=== PATIENT | female | born 1985 | race Caucasian/White ===

== ENCOUNTER 2023-04-17 20:08 | Outpatient (REF) | payer OTHER, SELFPAY ==
[2023-04-22 08:11] LABS: Age Gdln ACOG Testing Note (.); HPV Aptima Negative (Negative); IGP, Aptima HPV, rfx 16/18,45 Note (.)
== END 2023-04-17 20:09 | disposition home or self-care (01) ==
LOC: LAB 20:08
PROVIDERS: Visit Provider Physician Assistant
DX: Z01.419 Encounter for gynecological examination (general) (routine) without abnormal findings (principal)
CPT/HCPCS: 87624; G0145

== ENCOUNTER 2024-11-11 13:55 | Outpatient (REF) | payer OTHER, SELFPAY ==
--- OUTSIDE RECORDS SUMMARY | 2024-11-11 10:30 | XMS_ITS | Encounter Summary ---
Author Organization [facility] Address [address] [place] [address] Care Team Providers Care Gis Analyst Name Role Phone Uri Reyes MD Primary Care Provider [phone] Reason for Visit * Reason Comments Pre-op Visit EMBX Encounter Details Date Type Department Care Team (Late st Contact Info) Description 11/11/2024 10:30 AM EDT Procedure Visit [facility] [address] [place] [id number] Kobi Jolly DO [address] [place] [address] Pre-op examination; Menorrhagia with regular cycle; Abnormal uterine bleeding (AUB); Pelvic pain Social History Tobacco Use Types Packs/Day Years Used Date Smoking Tobacco: Never Smokeless Tobacco: Never Alcohol Use Standard Drinks/Week Comments Yes 1 (1 standard drink = 0.6 oz pure alcohol) Caffeine intake: 1-2 cups per day AUDIT-C Answer Date Recorded Q1: How often do you have a drink containing alc ohol? Monthly or less 04/15/2023 Q2: How many drinks containi ng alcohol do you have on a typical day when you are drinking? 1 or 2 04/15/2023 Q3: How often do you have si x or more drinks on one occasion? Never 04/15/2023 Comments No Sex and Gender Information Value Date Recorded Sex Assigned at Not on file Legal Sex Female 6:35 PM EDT Gender Identity Not on file Sexual Orientation Not on file documented as of this encounter Last Filed Vital Signs Vital Sign Reading Time Taken Comments Blood Pressure 100/68 11/11/2024 10:47 AM EDT Pulse - - Temperature - - Respiratory Rate - - Oxygen Saturation - - Inhaled Oxygen Concentration - - Weight 53.9 kg (118 lb 12.8 oz) 025 10:47 AM EDT Height - - Body Mass Index 21.73 08/04/2024 4:15 PM EDT documented in this encounter Progress Notes * Taylor Chaney - 11/11/2024 10:30 AM EDTAssociated Order(s): Endometrial biopsy Post-Procedure Diagnose(s): Pre-op examination; Menorrhagia with regular cycle; Pelvic pain; Abnormal uterine bleeding (AUB) Reason for Appointment: Patient ID: Jyoti Archuleta is a 39 y.o. female who presents for Pre-op Visit and EMBX Patient presents today for a Pre Op/Endometrial Biopsy appointment. Patient is scheduled to undergoEndometrial Ablation with Sosa on 12-10-[address] Jolly at [facility]. appointment. MEDICATIONS Current Outpatient Medications Medication Instructions levothyroxine (SYNTHROID, LEVOXYL) 50 mcg, Oral, Daily before breakfast Rimegepant Sulfate (Nurtec) 75 MG tablet dispersible 1 po daily prn migraine max 2 days per week ALLERGIES Allergies Allergen Reactions Atogepant Swelling Amoxicillin Nausea Only Amoxicillin-Pot Clavulanate Dizziness nausea Cyclosporine Hives Other Reaction(s): Blurred Vision, Vision disorder Blurred vision Other Reaction(s): Vision disorder Egg-Derived Products Other Reaction(s): Unknown Fexofenadine Hives Other Reaction(s): Menorrhagia CONTINIOUS PERIODS continous periods Fexofenadine Hcl Other Reaction(s): Other: See Comments Continuous periods Hydrocodone-Acetaminophen Other Reaction(s): Other: See Comments, Vomiting Nausea, Dizziness Wound Dressing Adhesive Unknown Azithromycin Rash Other Reaction(s): Vomiting, Vomiting Clarithromycin Dizziness, Nausea Only and Rash Other Reaction(s): Unknown Sulfa Antibiotics Nausea Only and Rash Other Reaction(s): Vomiting PROBLEMS Active Ambulatory Problems Diagnosis Date Noted BMI 21.0-21.9, adult 08/04/2023 Headache 08/04/2023 Hypothyroidism 08/04/2023 Migraines 08/04/2023 Sinusitis 08/04/2023 Resolved Ambulatory Problems Diagnosis Date Noted No Resolved Ambulatory Problems Past Medical History: Diagnosis Date Autoimmune thyroiditis Nontoxic goiter Vitamin D deficiency HISTORY PAST MEDICAL HISTORY SOCIAL HISTORY Past Medical History: Diagnosis Date Autoimmune thyroiditis BMI 21.0-21.9, adult Headache Hypothyroidism Migraines Nontoxic goiter Sinusitis Vitamin D deficiency Social History Tobacco Use Smoking status: Never Smokeless tobacco: Never Substance Use Topics Alcohol use: Yes Alcohol/week: 1.0 standard drink of alcohol Types: 1 Standard drinks or equivalent per week Comment: Caffeine intake: 1-2 cups per day Drug use: Never FAMILY HISTORY Family History Problem Relation Name Age of Onset Heart disease Mother Hypertension Father Hyperlipidemia Father Diabetes Sister Hypertension Sister Hyperlipidemia Sister Autoimmune disease Daughter Other (Blood disease) Daughter SURGICAL HISTORY Past Surgical History: Procedure Laterality Date OOPHORECTOMY Right OTHER SURGICAL HISTORY r/o RT fallopian tube due to ectopic TONSILLECTOMY age 25 REVIEW OF SYSTEMS Review of Systems: Review of Systems Genitourinary: Positive for menstrual problem, pelvic pain and vaginal bleeding. All other systems reviewed and are negative. OBJECTIVE Objective: Physical Exam Constitutional: Appearance: Normal appearance. She is well-developed. Genitourinary: Vulva normal. Cardiovascular: Rate and Rhythm: Normal rate and regular rhythm. Pulmonary: Effort: Pulmonary effort is normal. Breath sounds: Normal breath sounds. Abdominal: General: Bowel sounds are normal. There is no distension. Palpations: Abdomen is soft. Tenderness: There is no abdominal tenderness. There is no guarding or rebound. Musculoskeletal: General: No swelling. Normal range of motion. Right lower leg: No edema. Left lower leg: No edema. Neurological: Mental Status: She is alert and oriented to person, place, and time. Skin: General: Skin is warm and dry. Psychiatric: Mood and Affect: Mood normal. Behavior: Behavior normal. Vitals and nursing note reviewed. Exam conducted with a microfiche camera operator present. Vitals: Estimated body mass index is 21.77 kg/m?? as calculated from the following: Height as of 08/04/24: 5' 2 . Weight as of 10/14/24: 119 lb. BP: Patient's last menstrual period was 09/23/2024 (approximate). ASSESSMENT & PLAN Assessment/Plan Encounter Diagnosis: ICD-10-CM 1. Pre-op examination Z01.818 2. Menorrhagia with regular cycle N92.0 3. Abnormal uterine bleeding (AUB) N93.9 4. Pelvic pain R10.2 Endometrial biopsy Date/Time: 11/11/2024 11:13 AM Performed by: Kobi Jolly DO Authorized by: Kobi Jolly DO Consent: Consent obtained: written Consent given by: patient Pre-procedure: Urine test: negative Procedure: A bimanual exam was performed: no Tenaculum used: yes A local block was performed: no Cervix dilated: no Number of passes: 1 Findings: Cervix: normal Specimen collected: specimen collected and sent to pathology EMBX: Patient was placed in dorsal lithotomy position with feet in stirrups. A sterile speculum was placed into the vagina and the cervix was visualized. The cervix was grasped with a single tooth tenaculum. The endometrial pipette was placed through the cervix into the uterus, endometrial curettage was performed and sampling was obtained, endometrial curettings were placed in formalin, and single tooth tenaculum was removed. Excellent hemostasis was assured. All instruments were removed from vagina. Pre Op: Patient is doing well but has complaints of abnormal uterine bleeding, menorrhagia and pelvic pain.I have discussed conservative management vs. surgical management with the patient in detail and patient desires surgical management at this time. Patient will undergo Endometrial Ablation with Sosa on . Surgical consents were signed, mmc was reviewed, and patient is to proceed to [facility] OR. Follow Up: Patient is to follow up between 1-2 weeks post operative to assess proper healing and recovery fromprocedure. Documented by Sweta Granados LPN on behalf of: Kobi Jolly DO documented in this encounter Plan of Treatment Upcoming Encounters Date Type Department Care Team (Late st Contact Info) Description 09/08/2025 11:20 AM EDT Telemedicine [facility] [place] [facility] [address] [place] [address] Leonel Santiago MD [address] [place] [address] Scheduled Orders Name Type Priority Associated Diagnoses Orde r Schedule Tissue exam Pathology and Cytology Routine Pre-op examination Menorrhagia with regular cycle Abnormal uterine bleeding (AUB) Pelvic pain Ordered: 11/11/2024 documented as of this encounter Procedures Procedure Name Priority Date/Time Associated Diagnosis Comments ENDOMETRIAL BIOPSY Routine 11/11/2024 11 :13 AM EDT Pre-op examination Menorrhagia with regular cycle Abnormal uterine bleeding (AUB) Pelvic pain POCT , URINE Routine 11/11/2024 10:54 AM EDT Pre-op examination Menorrhagia with regular cycle Abnormal uterine bleeding (AUB) Pelvic pain documented in this encounter Results * Endometrial biopsy (11/11/2024 11:13 AM EDT) Narrative Sweta Granados LPN - 11/11/2024 11:13 AM EDT Sweta Granados LPN 11/11/2024 11:15 AM Endometrial biopsy Date/Time: 11/11/2024 11:13 AM Performed by: Kobi Jolly DO Authorized by: Kobi Jolly DO Consent: Consent obtained: written Consent given by: patient Pre-procedure: Urine test: negative Procedure: A bimanual exam was performed: no Tenaculum used: yes A local block was performed: no Cervix dilated: no Number of passes: 1 Findings: Cervix: normal Specimen collected: specimen collected and sent to pathology Kobi Jolly DO IN CLINIC/BEDSIDE ORDERABLES Fin al Result * POCT , urine manually resulted (11/11/2024 10:54 AM EDT) Preg Test, Ur Negative Negative Urine 11/11/2024 10:5 4 AM EDT Kobi Jolly DO POINT OF CARE TEST ENTER/EDIT OR DERABLES Final Result documented in this encounter Visit Diagnoses Diagnosis Pre-op examination Menorrhagia with regular cycle Abnormal uterine bleeding (AUB) Pelvic pain documented in this encounter Care Teams Gis Analyst Relationship Specialty Start Date End Date Uri Reyes MD [address] [place] [address] PCP - General Family Medicine 04/17/23 documented as of this encounter
--- OUTSIDE RECORDS SUMMARY | 2024-11-17 14:00 | XMS_ITS | Encounter Summary ---
Author Organization [facility] Address [address] [place] [address] Care Team Providers Care Manager Labor Relations Name Role Phone Uri Reyes MD Primary Care Provider [phone] Encounter Details Date Type Department Care Team (Late Contact Info) Description 10/05/2024 Orders Only [facility] [address] [place] [phone] Paradise Wen LPN [address] [place] [address] Social History Tobacco Use Types Packs/Day Years [...] drinks on one occasion? Never 04/15/2023 Comments Unknown Sex and Gender Information Value Date Recorded Sex Assigned at Not on file Legal Sex Female 6:35 PM EDT Gender Identity Not on file Sexual Orientation Not on file documented as of this encounter Plan of Treatment Upcoming Encounters Date Type Department Care Team (Late st Contact Info) Description 09/08/2025 11:20 AM EDT Telemedicine [facility] [address] [place] [address] Leonel Santiago MD [address] [place] [address] documented as of this encounter Procedures Procedure Name Priority Date/Time Associated Diagnosis Comments PAP SMEAR Routine 04/17/2023 12:00 AM EST documented in this encounter Results * Pap Smear (04/17/2023 12:00 AM EST) Swab Cervical swab / Unknown us Rik [facility] CYTOLOGY ORDERABLES Final Result EXTERNAL LAB documented in this encounter Visit Diagnoses Not on filedocumented in this encounter Care Teams Manager Labor Relations Relationship Specialty Start Date End Date Uri Reyes MD [address] [place] [address] PCP - General Family Medicine 04/17/23 documented as of this encounter
--- OUTSIDE RECORDS SUMMARY | 2024-11-17 14:00 | XMS_ITS | Clinical Summary ---
Author Organization [facility] Address [address], [address] [place] [address] Care Team Providers Care Ground Wood Supervisor Name Role Phone Unavailable Primary Care Provider Unavailabl e Social History Tobacco Use Types Packs/Day Years Used Date Smoking Tobacco: Never Assessed Comments Unknown Sex and Gender Information Value Date Recorded Sex Assigned at Not on file Legal Sex Female 2:33 PM EDT Gender Identity Not on file Sexual Orientation Not on file Plan of Treatment Not on file Insurance [address] [address]
--- OUTSIDE RECORDS SUMMARY | 2024-11-17 14:00 | XMS_ITS | Encounter Summary ---
Author Organization [facility] Address [address] [place] [address] Care Team Providers Care Writer Editor Name Role Phone Uri Reyes MD Primary Care Provider [phone] Encounter Details Date Type Department Care Team (Late Contact Info) Description 11/17/2024 Orders Only [facility] [address] [place] [phone] Angie Blevins MA [address] [place] [address] Social History Tobacco Use Types Packs/Day Years [...] 11:20 AM EDT Telemedicine [facility] [place] [facility] [address] [place] [address] Leonel Santiago MD [address] [place] [address] documented as of this encounter Procedures Procedure Name Priority Date/Time Associated Diagnosis Comments ENDOMETRIAL BIOPSY Routine 11/11/2024 12:00 AM EDT documented in this encounter Results * Endometrial biopsy (11/11/2024 12:00 AM EDT) us Kobi Rik DO SURGICAL HISTORY PROCEDURES [place] l Result EXTERNAL LAB documented in this encounter Visit Diagnoses Not on filedocumented in this encounter Care Teams Writer Editor Relationship Specialty Start Date End Date Uri Reyes MD [address] [place] [address] PCP - General Family Medicine 04/17/23 documented as of this encounter
--- OUTSIDE RECORDS SUMMARY | 2024-11-17 14:00 | XMS_ITS | Clinical Summary ---
Author Organization [employer] [facility] Address [id number] [place] [address] Care Team Providers Care Sports Physiologist Name Role Phone Unavailable Primary Care Provider Unavailabl e Allergies Active Allergy Reactions Criticality Noted Date Comments Fexofenadine Other (See Comments) 04/03/2017 CONTINIOUS PERIODS Amoxicillin Nausea 04/01/2017 Azithromycin Rash,Vomiting Low 04/01/2017 Clarithromycin Rash,Nausea Low 04/03/2017 Cyclosporine Blurred Vision 04/03/2017 Sulfa (Sulfonamide Antibiotics) Rash,Nausea,Vomitin g Low 04/01/2017 Hydrocodone-Acetaminophen Vomiting 04/01/2017 Medications NO115/IRON/FOLIC ACID ( 19 ORAL) Take 1 tablet by mouth. Active levothyroxine (SYNTHROID, LEVOTHROID) 75 MCG tablet Take 75 mcg by mouth daily. Active Active Problems Problem Noted Date Diagnosed Date Placenta previa in third trimester 08/15/2017 Hypothyroidism complicating , first tri mester 04/03/2017 Genetic carrier status 04/03/2017 Overview (04/03/2017): Cystic fibrosis carrier- her is carrier screen negative by report Resolved Problems Problem Noted Date Diagnosed Date Resolved Date Obesity complicating pregnan cy, first trimester 04/03/2017 04/03/2017 Family History Medical History Relation Name Comments Hyperlipidemia Father Diabetes Maternal Grandfather Diabetes Maternal Grandmother Heart disease Maternal Grandmother Arthritis Mother Heart disease Mother Hyperlipidemia Mother Hypertension Mother Hyperlipidemia Sister Relation Name Status Comments Father Maternal Grandfather Maternal Grandmother Alive Mother Paternal Grandfather Paternal Grandmother Sister Alive Social History Tobacco Use Types Packs/Day Years Used Date Smoking Tobacco: Never Smokeless Tobacco: Never Alcohol Use Standard Drinks/Week Comments No 0 (1 standard drink = 0.6 oz pur e alcohol) Childcare Answer Date Recorded Childcare Unknown 09/10/2018 Employment Answer Date Recorded Employment Unknown 09/10/2018 Purpose - Life Answer Date Recorded Purpose and direction in life Unknown Comments No Sex and Gender Information Value Date Recorded Sex Assigned at Not on file Legal Sex Female 9:48 AM EST Gender Identity Not on file Sexual Orientation Not on file Last Filed Vital Signs Vital Sign Reading Time Taken Comments Blood Pressure 107/65 08/15/2017 10:37 AM EDT Pulse 78 08/15/2017 10:37 AM EDT Temperature - - Respiratory Rate - - Oxygen Saturation - - Inhaled Oxygen Concentration - - Weight 59.9 kg (132 lb 0.9 oz) 08/15/2017 10:37 AM EDT Height 157.5 cm (5' 2 ) 08/15/2017 10:37 AM EDT Body Mass Index 24.15 08/15/2017 10:37 AM EDT Plan of Treatment Health Maintenance Due Date Last Done Comments Depression Screening 1996 Tobacco Screening 1996 Adult BMI Screening 2002 DTaP,Tdap and Td Vaccines (1 - Tdap) 09/30/2003 Pap Smear 2005 Influenza Vaccine 11/29/2024 Medical Devices Not on file Insurance [employer]
--- OUTSIDE RECORDS SUMMARY | 2024-11-17 14:00 | XMS_ITS | Clinical Summary ---
Author Organization [facility] Address [address] [place] [address] Phone Care Team Providers Care Wrapper Stitcher Name Role Phone Unavailable Primary Care Provider Unavailabl e Encounters Date Type Department Care Team Description 08/31/2024 Orders Only [facility] [address] [place] [address] Mj Shell DO from Last 3 Months Social History Tobacco Use Types Packs/Day Years Used Date Smoking Tobacco: Never Assessed Comments Unknown Sex and Gender Information Value Date Recorded Sex Assigned at Not on file Legal Sex Female 10:48 AM EDT Gender Identity Not on file Sexual Orientation Not on file Plan of Treatment Not on file Procedures Procedure Name Priority Date/Time Associated Diagnosis Comments CT ABDOMEN PELVIS WO IV CONTRAST 08/31/2024 10:46 AM EDT [facility] EGFR Routine 08/31/2024 10:39 AM EDT [facility] BMP Routine 08/31/2024 10:39 AM EDT [facility] EXTRA BLUE Routine 08/31/2024 10:39 AM EDT [facility] CBC W/ AUTO DIFF Routine 08/31/2024 10:39 AM EDT [facility] C URINE Routine 08/31/2024 10 :19 AM EDT [facility] UA WITH CULT RFLX Routine 08/31/2024 10:19 AM EDT from Last 3 Months Results * CT abdomen pelvis wo IV contrast (08/31/2024 10:46 AM EDT) Anatomical Region Laterality Modality Abdominal, Body Computed Tomogra phy 08/31/2024 10:4 6 AM EDT Narrative 08/31/2024 11:11 AM EDT Exam Date/Time: 08/31/2024 10:56 EDT Reason for Exam: Hematuria Report IMPRESSION: NO ACUTE OR SIGNIFICANT INTRA-ABDOMINAL PROCESS IDENTIFIED. EXAM: CT Abdomen/Pelvis w/o Contrast DATE: 08/31/2024 10:46 AM CLINICAL HISTORY: Hematuria. COMPARISON: None available. TECHNIQUE: Spiral unenhanced images were obtained from above the kidneys through the urinary bladder without contrast. All CT scans at this facility use dose modulation, iterative reconstruction, and/or weight based dosing when appropriate to reduce radiation dose to as low as reasonably achievable. Unless otherwise stated, incidental findings identified in this report do not require routine follow-up imaging. FINDINGS: Liver: No enlargement, significant fatty infiltration, suspicious mass lesion of the visualized segments. Approximately 2.2 cm fluid density cyst incidentally noted. Biliary: The gallbladder is unremarkable. No abnormal biliary ductal dilatation. Pancreas: No mass, organized fluid collection, or abnormal pancreatic ductal dilatation. Spleen: Unremarkable. Adrenals: Unremarkable. Kidneys: No hydronephrosis, significant urinary tract calculi, surrounding inflammatory changes, parenchymal atrophy, scarring, or suspicious mass. GI tract: No abnormal dilation, wall thickening, or suspicious mass. Normal appendix. Lymph nodes: No pathologically enlarged lymph nodes. Vasculature: No aneurysm. Mesentery/peritoneum/retroperitoneum: No ascites, organized fluid collection, inflammatory changes, or suspicious mass. Pelvis: The urinary bladder, uterus, and adnexa appear within normal limits. Musculoskeletal: No acute osseous findings identified. Mild rotary levoscoliosis of the thoracolumbar spine. Lower thorax: Noncontributory. Technical Comments: Rectal Contrast Given? No Report Ordering Provider: Mj Shell FINAL REPORT Dictated: 08/31/2024 11:08 am Henry Duarte MD Signed (Electronic Signature): 08/31/2024 11:08 am Signed by: Henry Duarte MD Transcribed by: TRAY Technologist: SB Mj Shell DO IMG CT PROCEDURES Final Result * [facility] EXTRA BLUE (08/31/2024 10:39 AM EDT) [facility] TUBE COLLECTED PLASMA Yes [facility] Blood 08/31/2024 1 0:39 AM EDT us Mj Shell DO LAB BLOOD ORDERABLES Final Resu lt [facility] [address] [place] [address], [place] * (ABNORMAL) [facility] CBC w/ Auto Diff (08/31/2024 10:39 AM EDT) [facility] WBC 9.2 4.0 - 11.0 E9/L [facility] RBC 4.9 4.3 - 5.9 E12/L [facility] HGB 14.4 12.0 - 16.0 gm/dL [facility] HCT 42.2 34.0 - 46.0 % [facility] RDW 12.8 10.9 - 14.2 % [facility] MCH 29.6 27.0 - 34.0 pg [facility] MCHC 34.2 31.4 - 36.0 gm/dL [facility] MCV 86.4 80.0 - 100.0 fL [facility] MPV 7.7 6.4 - 10.8 fL [facility] PLATELET 251.0 150.0 - 500.0 E9/L [facility] NEUTRO AUTO 84.5(H) 36.0 - 75.0 % [facility] LYMPH AUTO 10.0(L) 14.0 - 50.0 % [facility] MONO AUTO 4.7 4.0 - 14.0 % [facility] EOS AUTO 0.6 0.0 - 8.0 % [facility] BASOPHIL AUTO 0.2 0.0 - 2.0 % [facility] NEUTRO ABSOLUTE 7.7(H) 2.0 - 7.5 E9/L [facility] LYMPH ABSOLUTE 0.9(L) 1.0 - 4.0 E9/L [facility] MONO ABSOLUTE 0.4 0.2 - 1.0 E9/L [facility] EOS ABSOLUTE 0.1 0.0 - 0.5 E9/L [facility] BASOPHIL ABSOLUTE 0.0 0.0 - 0.2 E9/L [facility]- Blood 08/31/2024 1 0:39 AM EDT us Mj Shell DO LAB BLOOD ORDERABLES Final Resu lt [facility] [address] [place] [address], * [facility] BMP (08/31/2024 10:39 AM EDT) [facility] GLUCOSE LVL 93 55 - 199 mg/dL [facility] BUN 14 5 - 21 mg/dL [facility] CREATININE 0.7 0.5 - 1.3 mg/dL [facility] BUN/CREAT RATIO 20 10 - 20 No Units [facility] CALCIUM LVL 9.4 8.9 - 11.1 mg/dL [facility] SODIUM LVL 138 135 - 145 mmol/L [facility] POTASSIUM LVL 3.7 3.5 - 5.3 mmol/L [facility] CHLORIDE 103 101 - 111 mmol/L [facility] CO2 29 21 - 31 mmol/L [facility] AGAP 10 6 - 16 mEq/L [facility]- Blood 08/31/2024 1 0:39 AM EDT us Mj Shell DO LAB BLOOD ORDERABLES Final Resu lt [address] [address], [place] * [facility] eGFR (08/31/2024 10:39 AM EDT) [facility] EGFR 112 >=59 mL/min/1.7 3 m2 [facility]- Blood 08/31/2024 1 0:39 AM EDT Mj Mary Carmen Shell DO LAB BLOOD ORDERABLES Final Resu lt Performing Organization Address City/[facility]/[place] [address], [place] * (ABNORMAL) [facility] UA WITH CULT RFLX (08/31/2024 10:19 AM EDT) [facility] UA Spec Desc Clean Catch [facility] UA Color Light-Brown( A) Yellow [facility] Comment:Microscopic readings are only performed on those samples that meet specific criteria set forth by [facility]. [facility] UA Clarity Turbid(A) Clear [facility] UA Spec Grav 1.006 1.005 - 1.030 [facility] UA pH 8.0 5.0 - 9.0 [facility] UA Protein 1+(A) Negative mg/dL [facility] UA Glucose Negative Negative mg/dL [facility] UA Ketones Negative Negative mg/dL [facility] UA Bili Negative Negative mg/dL [facility] UA Blood 3+(A) Negative mg/dL [facility] UA Nitrite Negative Negative mg/dL [facility] UA Urobilinogen Negative Negative mg/dL [facility] UA Leuk Est [address]/uL(A) Negative CD:[id number] [facility] UA WBC >75(A) 0 - 5 CD:[id number] [facility] UA RBC 31-75(A) 0 - 3 CD:[id number] [facility] UA Squam Epithelial 0-2 CD:[id number] [facility] UA Bacteria Trace Trace /HPF [facility] UA MUCOUS Negative Negative CD:[id number] [facility] UA WBC CLUMP 4-10(A) CD:[id number] 63 [facility]- Urine 08/31/2024 1 0:19 AM EDT us Mj Shell DO LAB BLOOD ORDERABLES Final Resu lt Performing Organization Address City/[facility]/ZIP Co de Phone Number [facility] [address] [place] [address], [place] * [facility] C Urine (08/31/2024 10:19 AM EDT) [facility] CleanCatch 08/31/2024 10:19 AM EDT us Mj Shell DO LAB BLOOD ORDERABLES Final Resu lt Performing Organization Address City/[facility]/ZIP Co de Phone Number [facility] [address] [place] [address], [place] from Last 3 Months
--- OUTSIDE RECORDS SUMMARY | 2024-11-17 14:00 | XMS_ITS | Encounter Summary ---
Author Organization [facility] Address [address] [place] [address] Care Team Providers Care Loft Rigger Name Role Phone Uri Reyes MD Primary Care Provider [phone] Encounter Details Date Type Department Care Team (Late Contact Info) Description 11/11/2024 Abstract [facility] [address] [place] [phone] Kobi Jolly DO [address] [place] [address] Social History Tobacco Use Types Packs/Day Years [...] Info) Description 09/08/2025 11:20 AM EDT Telemedicine [facility] [address] [place] [phone] Leonel Santiago MD [address] [place] [address] documented as of this encounter Visit Diagnoses Not on filedocumented in this encounter Care Teams Loft Rigger Relationship Specialty Start Date End Date Uri Reyes MD [address] [place] [address] PCP - General Family Medicine 04/17/23 documented as of this encounter
--- OUTSIDE RECORDS SUMMARY | 2024-11-17 14:00 | XMS_ITS | Encounter Summary ---
Author Organization [facility] Address [address] [place] [address] Care Team Providers Care Alpine Guide Name Role Phone Uri Reyes MD Primary Care Provider Encounter Details Date Type Department Care Team (Late Contact Info) Description 08/26/2024 Orders Only [facility] [address] [place] [address] Leonel Santiago MD [address] [place] [address] Social History Tobacco Use Types Packs/Day Years [...] Encounters Date Type Department Care Team (Late Contact Info) Description 09/08/2025 11:20 AM EDT Telemedicine [facility] [address] [place] [address] Leonel Santiago MD [address] [place] [address] documented as of this encounter Procedures Procedure Name Priority Date/Time Associated Diagnosis Comments T3, FREE Routine 08/26/2024 9:12 AM EDT VITAMIN D, 25-HYDROXY Routine 08/26/2024 8:30 AM EDT TSH Routine 08/26/2024 8:30 AM EDT T4, FREE Routine 08/26/2024 8:30 AM EDT documented in this encounter Results * T3, free (08/26/2024 9:12 AM EDT) Blood Venous blood specimen / Unknown Leonel Santiago MD LAB BLOOD ORDERABLES Final Re sult * TSH (08/26/2024 8:30 AM EDT) Blood Venous blood specimen / Unknown Leonel Santiago MD LAB BLOOD ORDERABLES Final Re sult * T4, free (08/26/2024 8:30 AM EDT) Blood Venous blood specimen / Unknown Leonel Santiago MD LAB BLOOD ORDERABLES Final Re sult * VITAMIN D, 25-HYDROXY (08/26/2024 8:30 AM EDT) us Leonel Santiago MD LAB BLOOD ORDERABLES Final Re sult documented in this encounter Visit Diagnoses Not on filedocumented in this encounter Care Teams Alpine Guide Relationship Specialty Start Date End Date Uri Reyes MD [address] [place] [address] PCP - General Family Medicine 04/17/23 documented as of this encounter
--- OUTSIDE RECORDS SUMMARY | 2024-11-17 14:00 | XMS_ITS | Encounter Summary ---
Author Organization [facility] Address [address] [place] [address] Care Team Providers Care Gym Teacher Name Role Phone Uri Reyes MD Primary Care Provider [phone] Encounter Details Date Type Department Care Team (Late Contact Info) Description 10/20/2024 Abstract [facility] [address] [phone] Kobi Jolly DO [address] [place] [address] Social History Tobacco Use Types Packs/Day Years [...] [facility] [address] [place] [address] Leonel Santiago MD [address] [place] [address] documented as of this encounter Visit Diagnoses Not on filedocumented in this encounter Care Teams Gym Teacher Relationship Specialty Start Date End Date Uri Reyes MD [address] [place] [address] PCP - General Family Medicine 04/17/23 documented as of this encounter
--- OUTSIDE RECORDS SUMMARY | 2024-11-17 14:00 | XMS_ITS | Clinical Summary ---
Author Organization [facility] Address [address] [place] [address] Care Team Providers Care Product Development Coordinator Name Role Phone Uri Reyes MD Primary Care Provider [phone] Allergies Active Allergy Reactions Criticality Noted Date Comments Amoxicillin Nausea Only 04/01/2017 Amoxicillin-Pot Clavulanate Dizziness 04/17/2023 nausea Atogepant Swelling High 08/06/2023 Azithromycin Rash Low 12/12/2015 Other Reaction(s): Vomiting, Vomiting Clarithromycin Dizziness,Nausea Only,Rash Low 12/12/2015 Other Reaction(s): Unknown Cyclosporine Hives 12/12/2015 Other Reaction(s): Blurred Vision, Vision disorder Blurred vision Other Reaction(s): Vision disorder Egg-Derived Products 04/17/2023 Other Reaction(s): Unknown Fexofenadine Hives 04/03/2017 Other Reaction(s): Menorrhagia CONTINIOUS PERIODS continous periods Fexofenadine Hcl 12/12/2015 Other Reaction(s): Other: See Comments Continuous periods Hydrocodone-Acetaminophe n 12/12/2015 Other Reaction(s): Other: See Comments, Vomiting Nausea, Dizziness Sulfa Antibiotics Nausea Only,Rash Low 04/01/2017 Other Reaction(s): Vomiting Wound Dressing Adhesive Unknown 04/17/2023 Medications Rimegepant Sulfate (Nurtec) 75 MG tablet dispersibleIndic ations:Migraine without aura and without status migrainosus, not intractable 1 po daily prn migraine max 2 days per week 10 tablet 2 5 Active levothyroxine (Synthroid, 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 Take 1 tablet (50 mcg) by mouth Daily before meals 90 tablet 3 5 09/06/19 26 Active Active Problems Problem Noted Date Diagnosed Date BMI 21.0-21.9, adult 08/04/2023 Headache 08/04/2023 Hypothyroidism 08/04/2023 Migraines 08/04/2023 Sinusitis 08/04/2023 Encounters Date Type Department Care Team Description 11/17/2024 Orders Only [facility] [address] [place] [address] Angie Blevins MA 11/11/2024 10:30 AM EDT Procedure Visit [facility] [address] [place] [address] Kobi Jolly DO Pre-op examination; Menorrhagia with regular cycle; Abnormal uterine bleeding (AUB); Pelvic pain 11/11/2024 Abstract [facility] [address] [place] [address] Kobi Jolly, 10/20/2024 Abstract [facility] [address] [place] [address] Kobi Jolly, 10/14/2024 9:50 AM EDT Office Visit [facility] [address] [place] [address] Kobi Jolly DO Pelvic pain in female 10/14/2024 External Result Encounter [facility] Unsolicited Kobi Jolly, 10/14/2024 Bamboo flowsheet [facility] [address] [place] [address] Kobi Jolly, 10/05/2024 Orders Only [facility] [address] [place] [address] Paradise Wen LPN 09/10/2024 11:30 AM EDT Telemedicine [facility] [address] [place] [address] Leonel Santiago MD Essie's disease (Primary Dx); Thyroid nodule 09/10/2024 Bamboo flowsheet [facility] [address] [place] [address] Leonel Santiago MD 09/10/2024 Travel 08/26/2024 Orders Only [facility] [address] [place] [address] Leonel Santiago MD from Last 3 Months Family History Medical History Relation Name Comments Autoimmune disease Daughter Blood disease Daughter Hyperlipidemia Father Hypertension Father Heart disease Mother Diabetes Sister Hyperlipidemia Sister Hypertension Sister Relation Name Status Comments Daughter Alive Father Mother Sister Alive Son Alive Social History Tobacco Use Types Packs/Day Years Used Date Smoking Tobacco: Never Smokeless Tobacco: Never Tobacco Cessation:Counseling Given: Not Answered Alcohol Use Standard Drinks/Week Comments Yes 1 [...] Pressure 100/68 11/11/2024 10:47 AM EDT Pulse 67 08/04/2024 4:15 PM EDT Temperature - - Respiratory Rate 16 08/06/2023 3:03 PM EDT Oxygen Saturation 100% 02/17/2024 4:23 PM EST Inhaled Oxygen Concentration - - Weight 53.9 kg (118 lb 12.8 oz) 025 10:47 AM EDT Height 157.5 cm (5' 2 ) 08/04/2024 4:15 PM EDT Body Mass Index 21.73 08/04/2024 4:15 PM EDT Plan of Treatment Upcoming Encounters Date Type Department Care Team (Late st Contact Info) Description 09/08/2025 11:20 AM EDT Telemedicine [facility] [address] [place] [address] Leonel Santiago MD [address] [place] [address] Procedures Procedure Name Priority Date/Time Associated Diagnosis Comments DHEA, UNCONJUGATED Routine 11/11/2024 2: 19 PM EDT Pelvic pain in female DHEA SULFATE Routine 11/11/2024 2:19 PM EDT Pelvic pain in female HEMOGLOBIN A1C Routine 11/11/2024 2:19 PM EDT Pelvic pain in female LH Routine 11/11/2024 2:19 PM EDT Pelvic pain in female FSH Routine 11/11/2024 2:19 PM EDT Pelvic pain in female CBC (INCLUDES DIFF/PLT) Routine 11/11/2024 2:19 PM EDT Pelvic pain in female T4, FREE Routine 11/11/2024 2:19 PM EDT Pelvic pain in female TSH Routine 11/11/2024 2:19 PM EDT Pelvic pain in female HCG, TOTAL, QN Routine 11/11/2024 2:19 PM EDT Pelvic pain in female PROGESTERONE Routine 11/11/2024 2:19 PM EDT Pelvic pain in female ESTRADIOL Routine 11/11/2024 2:19 PM EDT Pelvic pain in female ENDOMETRIAL BIOPSY Routine 11/11/2024 11 :13 AM EDT Pre-op examination Menorrhagia with regular cycle Abnormal uterine bleeding (AUB) Pelvic pain POCT , URINE Routine 11/11/2024 10:54 AM EDT Pre-op examination Menorrhagia with regular cycle Abnormal uterine bleeding (AUB) Pelvic pain ENDOMETRIAL BIOPSY Routine 11/11/2024 12 :00 AM EDT RECURRENT VAGINITIS (HTRX) Routine 10/14/2024 1:44 PM EDT POCT , URINE Routine 10/14/2024 10:08 AM EDT Pelvic pain in female POCT URINALYSIS DIPSTICK Routine 10/14/2024 10:05 AM EDT Pelvic pain in female T3, FREE Routine 08/26/2024 9:12 AM EDT TSH Routine 08/26/2024 8:30 AM EDT T4, FREE Routine 08/26/2024 8:30 AM EDT VITAMIN D, 25-HYDROXY Routine 08/26/2024 8:30 AM EDT from Last 3 Months Results * Progesterone (11/11/2024 2:19 PM EDT) Blood Venous blood specimen / Unknown us Kobi Rik DO LAB BLOOD ORDERABLES Final Resul t Performing Organization Address [facility] Co de Phone Number EXTERNAL LAB * DHEA-sulfate (11/11/2024 2:19 PM EDT) Blood Venous blood specimen / Unknown us Kobi Rik DO LAB BLOOD ORDERABLES Final Resul t Performing Organization Address [facility] Co de Phone Number EXTERNAL LAB * Estradiol (11/11/2024 2:19 PM EDT) Blood Venous blood specimen / Unknown us Kobi Rik DO LAB BLOOD ORDERABLES Final Resul t Performing Organization Address [facility]/ZIP Co de Phone Number EXTERNAL LAB * DHEA (11/11/2024 2:19 PM EDT) Blood Venous blood specimen / Unknown us Kobi Rik DO LAB BLOOD ORDERABLES Final Resul t Performing Organization Address [facility]/ZIP Co de Phone Number EXTERNAL LAB * CBC and differential (11/11/2024 2:19 PM EDT) Blood Venous blood specimen / Unknown us Kobi Rik DO LAB BLOOD ORDERABLES Final Resul t Performing Organization Address [facility] Co de Phone Number EXTERNAL LAB * hCG, quantitative, (11/11/2024 2:19 PM EDT) Blood Venous blood specimen / Unknown us Kobi Rik DO LAB BLOOD ORDERABLES Final Resul t Performing Organization Address [facility] Co de Phone Number EXTERNAL LAB * TSH (11/11/2024 2:19 PM EDT) Only the most recent of2 resultswithin the time period is included. Blood Venous blood specimen / Unknown us Kobi Rik DO LAB BLOOD ORDERABLES Final Resul t Performing Organization Address [facility] de Phone Number EXTERNAL LAB * T4, free (11/11/2024 2:19 PM EDT) Only the most recent of2 resultswithin the time period is included. Blood Venous blood specimen / Unknown us Kobi Rik DO LAB BLOOD ORDERABLES Final Resul t Performing Organization Address [facility] Co de Phone Number EXTERNAL LAB * Hemoglobin A1c (11/11/2024 2:19 PM EDT) Blood Venous blood specimen / Unknown us Kobi Rik DO LAB BLOOD ORDERABLES Final Resul t Performing Organization Address [facility] Co de Phone Number EXTERNAL LAB * Luteinizing hormone (11/11/2024 2:19 PM EDT) Blood Venous blood specimen / Unknown us Kobi Rik DO LAB BLOOD ORDERABLES Final Resul t Performing Organization Address [facility] Co de Phone Number EXTERNAL LAB * Follicle stimulating hormone (11/11/2024 2:19 PM EDT) Blood Venous blood specimen / Unknown Kobi Jolly DO LAB BLOOD ORDERABLES Final Resul t Performing Organization Address [facility] de Phone Number EXTERNAL LAB * Endometrial biopsy (11/11/2024 11:13 AM EDT) [...] urine manually resulted (11/11/2024 10:54 AM EDT) Only the most recent of2 resultswithin the time period is included. Preg Test, Ur Negative Negative Urine 11/11/2024 10:5 4 AM EDT Kobi Jolly DO POINT OF CARE TEST ENTER/EDIT OR DERABLES Final Result * Endometrial biopsy (11/11/2024 12:00 AM EDT) Kobi Jolly DO SURGICAL HISTORY PROCEDURES [place] l Result Performing Organization Address [facility] Co de Phone Number EXTERNAL LAB * RECURRENT VAGINITIS (HTRX) (10/14/2024 1:44 PM EDT) ATOPOBIUM VAGINAE 0 19.961 - 24.689 ppm 10/15/2024 7:22 AM EDT [facility] ATOPOBIUM VAGINAE Not Detected 19.961 - 24.689 ppm 10/15/2024 7:22 AM EDT [facility] BVAB 2,3 (BACTERIAL VAGINOSIS ASSOCIATED BACTERIA 2, 3); MOBILUNCUS SPP 0 19.961 - 24.689 ppm 10/15/2024 7:22 AM EDT [facility] BVAB 2,3 (BACTERIAL VAGINOSIS ASSOCIATED BACTERIA 2, 3); MOBILUNCUS SPP Not Detected 19.961 - 24.689 ppm 10/15/2024 7:22 AM EDT [facility] DILMA ALBICANS, PARAPSILOSIS, TROPICALIS 0 23.000 - 30.347 ppm 10/15/2024 7:22 AM EDT [facility] DILMA ALBICANS, PARAPSILOSIS, TROPICALIS Not Detected 23.000 - 30.347 ppm 10/15/2024 7:22 AM EDT [facility] DILMA GLABRATA 0 23.000 - 31.618 ppm 10/15/2024 7:22 AM EDT [facility] DILMA GLABRATA Not Detected 23.000 - 31.618 ppm 10/15/2024 7:22 AM EDT [facility] DILMA KRUSEI 0 23.000 - 30.873 ppm 10/15/2024 7:22 AM EDT [facility] DILMA KRUSEI Not Detected 23.000 - 30.873 ppm 10/15/2024 7:22 AM EDT [facility] CHLAMYDIA TRACHOMATIS 0 23.000 - 31.586 ppm 10/15/2024 7:22 AM EDT [facility] CHLAMYDIA TRACHOMATIS Not Detected 23.000 - 31.586 ppm 10/15/2024 7:22 AM EDT [facility] GARDNERELLA VAGINALIS 0 19.961 - 24.689 ppm 10/15/2024 7:22 AM EDT [facility] GARDNERELLA VAGINALIS Not Detected 19.961 - 24.689 ppm 10/15/2024 7:22 AM EDT [facility] PARESHSPHAERA (TYPES 1, 2) 0 19.961 - 24.689 ppm 10/15/2024 7:22 AM EDT [facility] FRANDYRA (TYPES 1, 2) Not Detected 19.961 - 24.689 ppm 10/15/2024 7:22 AM EDT [facility] NEISSERIA GONORRHOEAE 0 23.000 - 32.587 ppm 10/15/2024 7:22 AM EDT [facility] NEISSERIA GONORRHOEAE Not Detected 23.000 - 32.587 ppm 10/15/2024 7:22 AM EDT [facility] TRICHOMONAS VAGINALIS 0 23.000 - 31.995 ppm 10/15/2024 7:22 AM EDT [facility] TRICHOMONAS VAGINALIS Not Detected 23.000 - 31.995 ppm 10/15/2024 7:22 AM EDT [facility] MYCOPLASMA GENITALIUM 0 19.961 - 24.689 ppm 10/15/2024 7:22 AM EDT [facility] MYCOPLASMA GENITALIUM Not Detected 19.961 - 24.689 ppm 10/15/2024 7:22 AM EDT [facility] Tissue 10/14/2024 1:44 PM EDT 10/15/2024 3:11 AM EDT us Kobi Jolly DO LAB BLOOD ORDERABLES Final Resul t [facility] [address] [place] [address] * (ABNORMAL) POCT urinalysis dipstick manually resulted (10/14/2024 10:05 AM EDT) Color, UA Yellow Clarity, UA Clear Glucose, UA Negative Negative - 2000(110) ++++ mg/dL Bilirubin, UA Negative Negative - 4(70) +++ mg/dL Ketones, UA Negative Negative - 160(16) ++++ mg/dL Spec Grav, UA 1.005 1 - 1.03 Blood, UA Positive Negative - 50 Dereck/mcL Comment:Trace pH, UA 6.5 5 - 9 Protein, UA Negative Negative - 2000(20) ++++ mg/dL Urobilinogen, UA 0.2 0.2 - 12 mg/dL Leukocytes, UA Negative Negative - 500+++ Carmela/mcL Nitrite, UA Negative Negative - Positive Urine 10/14/2024 10:0 5 AM EDT Kobi Rik DO POINT OF CARE TEST ENTER/EDIT OR DERABLES Final Result * T3, free (08/26/2024 9:12 AM EDT) Blood Venous blood specimen / Unknown Leonel Santiago MD LAB BLOOD ORDERABLES Final Re sult * VITAMIN D, 25-HYDROXY (08/26/2024 8:30 AM EDT) Leonel Santiago MD LAB BLOOD ORDERABLES Final Re sult from Last 3 Months Insurance [employer] Care Teams Product Development Coordinator Relationship Specialty Start Date End Date Uri Reyes MD [address] [place] [address] PCP - General Family Medicine 04/17/23
--- OUTSIDE RECORDS SUMMARY | 2024-11-17 14:10 | XMS_ITS | CCD ---
Author Organization [facility] CliniSywv Care Team Providers Care Material Clerk Name Role Phone ADRIAN CASI Referring Unavailable GARCIA LAWSON Primary Care Physician ORESTES, DR ESEQUIEL Lambert Admitting Unavailable ORESTES, DR ESEQUIEL Lambert Attending Unavailable REQUEST, NONE LISTED Primary Care Unavaila ble ORESTES, DR ESEQUIEL Lambert Consulting Unavailable ORESTES, DR ESEQUIEL Lambert Admitting Unavailable ORESTES, DR ESEQUIEL Lambert Attending Unavailable REQUEST, NONE LISTED Primary Care Unavaila ble ORESTES, DR ESEQUIEL Lambert Consulting Unavailable GARCIA LAWSON Admitting Unavailable GARCIA LAWSON Attending Unavailable REQUEST, NONE LISTED Primary Care Unavaila Uri Mead Primary Care Physician [phone] LEONEL ROWE Attending Unavailable LEONEL ROWE Admitting Unavailable MD Uri Gibbs Attending Unavailable MD Uri Gibbs Attending Unavailable Eloisa Dahl Attending Unavailable PAIGE CARTER Attending Unavailable LEONEL ROWE Attending Unavailable LEONEL ROWE Admitting Unavailable MD Uri Gibbs Attending Unavailable MD Uri Gibbs Admitting Unavailable Uri Gibbs Attending Unavailable Uri Gibbs Admitting Unavailable Uri Gibbs Admitting Unavailable Uri Gibbs Attending Unavailable Uri Gibbs Attending Unavailable Uri Gibbs Admitting Unavailable Uri Gibbs MD Primary Care Provider Joo Carmen Attending Unavailable Joo Carmen Admitting Unavailable Joo Carmen Attending Unavailable Joo Carmen Attending Unavailable Joo Carmen Admitting Unavailable Joo Carmen Admitting Unavailable Joo Carmen Attending Unavailable LEONEL ROWE Attending Unavailable LEONEL ROWE Admitting Unavailable Mj Shell Attending Unavailable MD Uri Gibbs Attending Unavailable MD Uri Gibbs Admitting Unavailable Mj Shell Attending Unavailable MD Uri Gibbs Attending Unavailable LLC, ANGELINE Primary Care Physician Unavailab Reese, Kobi R Attending Unavailable RIK, Kboi R Admitting Unavailable CERDA, Raul R Attending Unavailable CERDA, Raul R Referring Unavailable CERDA, Raul R Admitting Unavailable CERDA, Raul R Attending Unavailable CERDA, Raul R Admitting Unavailable CERDA, Raul R Attending Unavailable CERDA, Raul R Attending Unavailable RIK, Kobi R Attending Unavailable RIK, Kobi R Referring Unavailable RIK, Kobi R Admitting Unavailable RIK, Kobi R Attending Unavailable RIK, Kobi R Admitting Unavailable BERNA[place]TE EAST Attending Unavailable SOLEDAD, AHMAD F Attending Unavailable RIK, KOBI Attending Unavailable RIK, KOBI Attending Unavailable JEFF PARADA Attending Unavailable Uri Gibbs Admitting Unavailable Uri Gibbs Attending Unavailable Uri Gibbs Referring Unavailable SOLEDAD, AHMAShahbaz F Admitting Unavailable SOLEADD, AHMAD F Attending Unavailable Eloisa Dahl Attending Unavailable Allergies Allergy Classification Reported Allergen(s) Allergy Type Date of Onset Reaction(s) Facility (10 sources) Acetaminophen / HYDROcodone; Translations: [Vicodin] Drug Allergy 04-29-19 15 [facility] (1 source) Amoxicillin Drug Allergy 04-29-19 15 [facility] (2 sources) Azithromycin Drug Allergy 04-29-19 15 [facility] (1 source) Benzalkonium Drug Allergy 03-31-19 14 [facility] (10 sources) cycloSPORINE; Translations: [Restasis] Drug Allergy 03-31-19 14 [facility] (1 source) fexofenadine Drug Allergy 03-31-19 14 [facility] (1 source) Sulfonamides (Antibiotic) Drug allergy (disorder) 04-29-19 15 [facility] (14 sources) Acetaminophen / HYDROcodone; Translations: [acetaminophen-hyd rocodone] Drug Allergy Nausea and vomiting (disorder) [facility] (14 sources) Amoxicillin / Clavulanate; Translations: [amoxicillin-clavu lanate] Drug Allergy Dizziness (finding) [facility] Comment on above: nausea (20 sources) Azithromycin; Translations: [azithromycin] Drug Allergy 12-12-19 16 Eruption of skin (disorder), Rash [facility] (20 sources) Clarithromycin; Translations: [clarithromycin] Drug Allergy Dizziness (finding) [facility] (14 sources) cycloSPORINE; Translations: [cyclosporine ophthalmic] Drug Allergy Disorder of vision (disorder) [facility] Comment on above: Blurred vision (20 sources) Egg; Translations: [Eggs] Food allergy Unknown (qualifier value) [facility] (20 sources) fexofenadine; Translations: [fexofenadine] Drug Allergy 04-03-19 18 Menorrhagia (finding), Hives [facility] Comment on above: continous periods (20 sources) Sulfonamides (Antibiotic); Translations: [sulfa drugs] Drug allergy Headache (finding) [facility] (20 sources) Qulipta; Translations: [atogepant] Propensity to adverse reactions to drug Facial swelling (finding) [facility] (9 sources) Amoxicillin / Clavulanate; Translations: [Augmentin] Drug Allergy [facility] Repository (9 sources) Helen 24 Hour Allergy; Translations: [Helen 24 Hour Allergy] Propensity to adverse reactions (disorder) [facility] Rep[facility] (14 sources) Acetaminophen / HYDROcodone Drug Allergy 12-12-19 16 [facility] (14 sources) Amoxicillin Drug Allergy 04-01-19 18 Nausea Only [facility] (14 sources) Clarithromycin Allergy to substance 12-12-19 16 Dizziness, Nausea Only, Rash [facility] (14 sources) cycloSPORINE Drug Allergy 12-12-19 16 Hives [facility] (14 sources) fexofenadine Drug Allergy 12-12-19 16 [facility] (14 sources) Sulfonamides (Antibiotic) Drug Intolerance 04-01-19 18 Nausea Only, Rash [facility] (14 sources) Amoxicillin-Pot Clavulanate Drug Allergy 04-17-19 24 Dizziness [facility] (14 sources) Atogepant Propensity to adverse reactions 08-06-19 24 Swelling [facility] (14 sources) Egg-Derived Products Drug Allergy 04-17-19 [facility] (14 sources) Wound Dressing Adhesive Drug Allergy 04-17-19 Unknown [facility] Medications Current Medications Medication Drug Class(es) Dates Sig (Normalized) Sig (Original) cephalexin 500 mg oral capsule (2 sources) Cephalosporin Antibacterial Start: 08-31-2024 End: 09-05-2024 take 1 capsule by mouth every six hours Keflex 500 mg Cap 500 mg = 1 cap(s), Oral, q6hr, X 5 day(s), # 20 cap(s), Refills(s) 0, Pharmacy: [facility], [facility], cm, 08/31/24 10:18:00 EDT, Height/Length Dosing, 58.7, kg, 08/31/24 10:18:00 EDT, Weight Dosing Start Date: 08/31/24 Stop Date: 09/05/24 Status: Ordered Quantity: 20.0 Unit: cap(s) Repeat number: 1 ciprofloxacin 500 mg oral tablet (3 sources) Quinolone Antimicrobial Start: 02-17-2024 End: 02-24-2024 take 1 tablet by mouth every twelve hours Cipro 500 mg Tab 500 mg = 1 tab(s), Oral, q12hr, X 7 day(s), # 14 tab(s), Refills(s) 0, Pharmacy: [facility], 157.5, cm, 11/20/23 8:35:00 EDT, Height/Length Dosing, 53.8, kg, 11/20/23 8:35:00 EDT, Weight Dosing Start Date: 02/17/24 Stop Date: 02/24/24 Status: Ordered doxycycline hyclate 100 mg oral capsule (3 sources) Tetracycline-class Drug Start: 09-27-2024 take 1 capsule by mouth once daily doxycycline hyclate 100 mg Cap 100 mg = 1 cap(s), Oral, Daily, take one day before procedure and take one day after procedure, # 2 cap(s), Refills(s) 0, Pharmacy: [facility]/pharmacy #[id number], 157, cm, 09/27/24 8:57:00 EDT, Height/Length Dosing, 55, kg, 09/27/24 8:57:00 EDT, Weight Dosing Start Date: 09/27/24 Status: Ordered Quantity: 2.0 Unit: cap(s) Repeat number: 1 levothyroxine sodium 0.05 mg oral tablet (20 sources) l-Thyroxine Start: 09-10-2024 End: 09-05-2025 take 1 tablet by mouth once daily before mealtime levothyroxine (Synthroid, Levoxyl) 50 MCG tablet Indications: Essie's disease Take 1 tablet (50 mcg) by mouth Daily before meals 90 tablet 3 09/10/2024 09/05/2025 Active Start: 11-04-2022 take 1 tablet by carlee th once daily in the morning levothyroxine 50 mcg (0.05 mg) Tab 30 EA, TAKE 1 TABLET BY MOUTH EVERY DAY IN THE MORNING ON EMPTY STOMACH, Refills(s) 0 Start Date: 11/04/22 Status: Ordered Repeat number: 1 promethazine hydrochloride 25 mg oral tablet (13 sources) Phenothiazine Start: 07-03-2023 take 1 tablet by mouth once as needed for headache promethazine 25 mg Tab 25 mg = 1 tab(s), Oral, Once, PRN Migraine headache, # 30 tab(s), Refills(s) 0, Pharmacy: [facility], 157.5, cm, 07/03/23 15:37:00 EDT, Height/Length Dosing, 54.8, kg, 07/03/23 15:37:00 EDT, Weight Dosing Start Date: 07/03/23 Status: Ordered Start: 07-03-2023 End: 10-14-2024 promethazine (Phenergan) 25 MG tablet Take 25 mg by mouth 07/03/2023 10/14/2024 Discontinued rimegepant 75 mg disintegrating oral tablet (20 sources) Start: 11-04-2022 End: 08-04-2024 take 1 tablet by mouth once daily as needed Rimegepant Sulfate (Nurtec) 75 MG tablet dispersible Indications: Migraine without aura and without status migrainosus, not intractable 1 po daily prn migraine max 2 days per week 10 tablet 2 08/04/2024 Active tiZANidine 4 mg oral tablet (20 sources) Central alpha-2 Adrenergic Agonist Start: 11-05-2023 End: 10-14-2024 take 1 tablet by mouth once at bedtime tiZANidine (Zanaflex) 4 MG tablet Indications: Migraine without aura and without status migrainosus, not intractable Take 1 tablet (4 mg) by mouth at bedtime 1/2-1 po q hs 30 tablet 2 02/17/2024 10/14/2024 Discontinued Problems Active Problems Problem Classification Problem Date Documented Da te Episodic/Chronic Abdominal pain (3 sources) Pain in female pelvis; Translations: [Pelvic and perineal pain] 10-14-2024 Episodic Genitourinary symptoms and ill-defined conditions (2 sources) Blood in urine; Translations: [Hematuria, unspecified] Onset: 08-31-2024 Episodic Headache; including migraine (20 sources) Migraine; Translations: [Migraine, unspecified, not intractable, without status migrainosus] Onset: 08-04-2023 11-04-2022 Chronic Menstrual disorders (1 source) Menorrhagia; Translations: [Excessive and frequent menstruation with regular cycle] 11-11-2024 Chronic Nausea and vomiting (4 sources) Nausea; Translations: [Nausea] 02-17-2024 Episodic Other female genital disorders (1 source) Abnormal uterine bleeding; Translations: [Abnormal uterine and vaginal bleeding, unspecified] 11-11-2024 Chronic Other upper respiratory infections (14 sources) Sinusitis; Translations: [Chronic sinusitis, unspecified] Onset: 08-04-2023 08-04-2023 Chronic Spondylosis; intervertebral disc disorders; other back problems (1 source) Low back pain; Translations: [Low back pain, unspecified] Onset: 02-22-2024 Episodic Thyroid disorders (20 sources) Hypothyroidism; Translations: [Hypothyroidism, unspecified] Onset: 08-04-2023 11-04-2022 Chronic Unclassified (2 sources) exposure; Translations: [exposure] Onset: 06-04-2018 Unclassified (1 source) Patient encounter status 11-04-2022 Unclassified (13 sources) Body mass index 20-24 - normal 05-22-2023 Urinary tract infections (1 source) Urinary tract infectious disease; Translations: [Urinary tract infection, site not specified] Onset: 08-31-2024 Episodic Past or Other Problems Problem Classification Problem Date Documented Da te Episodic/Chronic Headache; including migraine (14 sources) Headache; Translations: [Headache] Onset: 08-04-2023 08-04-2023 Episodic Residual codes; unclassified (14 sources) Body mass index 20-24 - normal; Translations: [Body mass index (BMI) 21.0-21.9, adult] Onset: 08-04-2023 08-04-2023 Episodic Results Test Name Value Interpretation Reference Range Facility Endometrial biopsyon 025 Sweta Granados LPN 11/11/2024 11:15 AM Endometrial [...] collected: specimen collected and sent to pathology [facility] Endometrial biopsyOrdered By : Sweta Granados on 11-11-2024 [facility] HCG ( test) Ql (U)O rdered By: Paradise Wen on 11-11-2024 Interpretation and review of laboratory results Normal [facility] Work Phone: Preg Test, Ur Negative Negative [facility] Work Phone: [facility] Work Phone: DHEAon 10-23-2024 DHEA 353 ng/dL Invalid Interpretation Code 07-643 [facility] Comment on above: Result Comment: This test was developed and its performance characteristics determined by [employer]. It has not been cleared or approved by the Food and Drug Administration. Performed at: [facility] [id number] MD Tyrell Griggs Performed By: #### 1 [id number] #### [facility] [address] [place] [id number] DHEASon 10-23-2024 DHEAS 197.0 microgram/dL Invalid Interpretation Code 57.3-279.2 [facility] Comment on above: Result Comment: Perf ormed at: [facility] [id number] PhD Brian Arthur Performed By: #### 1 [id number] #### [facility] [address] [place] [address] Estradiolon 10-23-2024 Estradiol Lvl 93.8 pg/mL Invalid Interpretation Code [facility] Comment on above: Result Comment: Adul t Female Range Follicular phase 12.5 - 166.0 Ovulation phase 85.8 - 498.0 Luteal phase 43.8 - 211.0 Postmenopausal <6.0 - 54.7 1st trimester 215.0 - >4300.0 Cindi ECLIA methodology Performed at: [address] [id number] PhD Brian Arthur Performed By: #### 2 [id number] #### [facility] [address] [place] [address] FSHon 10-23-2024 FSH 5.9 mIU/mL Invalid Interpretation Code [facility] Comment on above: Result Comment: Adul t Female Range Follicular phase 3.5 - 12.5 Ovulation phase 4.7 - 21.5 Luteal phase 1.7 - 7.7 Postmenopausal 25.8 - 134.8 Performed at: [address] [id number] PhD Brian Arthur Performed By: #### 2 [id number] #### [facility] [address] [place] [address] LHon 10-23-2024 LH 8.3 mIU/mL Invalid Interpretation Code [facility] Comment on above: Result Comment: Adul t Female Range Follicular phase 2.4 - 12.6 Ovulation phase 14.0 - 95.6 Luteal phase 1.0 - 11.4 Postmenopausal 7.7 - 58.5 Performed at: [address] [id number] PhD Brian Arthur Performed By: #### 2 [id number] #### [facility] [address] [place] [address] US Pelvis Non-OB Completeon 10-22-2024 US Pelvis Non-OB Complete Exam Date/Time: 10/20/2024 16:51 EDT Reason for Exam: R10.2 Report IMPRESSION: Unremarkable ultrasound of the female pelvis. HISTORY: Generalized intermittent pelvic pain. History of and right salpingectomy. TECHNIQUE: Sonography of the pelvis was performed by transabdominal technique. COMPARISON: CT 08/31/2024. RESULT: Uterus: -Orientation: Anteverted -Size: Uterus Length: 9.3 cm x Uterus Width: 4.4 cm x Uterus Height: 3.5 cm. Uterus Volume: 74.8 cm3 -Myometrium: Homogeneous echotexture. -Endometrial echo complex: Endometrium Thickness: 0.9 cm -Cervix: Grossly unremarkable. Right ovary: Normal sonographic appearance with physiologic follicles. -Size: Right Ovary Length: 2.9 cm x Right Ovary Width: 2.3 cm x Right Ovary Height: 1.9 cm. Right Ovary Volume: 6.6 cm3 -Complex cyst: None. -Solid mass: None. -Vascular flow present. Left ovary: Normal sonographic appearance with physiologic follicles. -Size: Left Ovary Length: 2.2 cm x Left Ovary Width: 1.7 cm x Left Ovary Height: 1.3 cm. Left Ovary Volume: 2.5 cm3 -Complex cyst: None. -Solid mass: None. -Vascular flow present. Free fluid: None. Tech Comments: - Transabdominal Ultrasound Performed Report Ordering Provider: Kobi JOLLY FINAL REPORT Dictated: 10/22/2024 10:19 am Riley Burdick MD Signed (Electronic Signature): 10/22/2024 10:19 am Signed by: Riley Burdick MD Transcribed by: TRAY Technologist: LUCERO Cast [facility] Quanton 10-19-2024 Beta hCG Qnt <1 Normal 1-3 [facility] Comment on above: Result Comment: 'F N ON < 1 - 3' ' 0.2 - 1 WEEK = 5 TO 50' ' 1 - 2 WEEKS = 50 - 500' ' 2 - 3 WEEKS = 100 - 5000' ' 3 - 4 WEEKS = 500 - 59179' ' 4 - 5 WEEKS = 1000 - 15488' ' 5 - 6 WEEKS = 21616 - 557651' ' 6 - 8 WEEKS = 85284 - 390350' ' 8 - 12 WEEKS = 49359 - 597056' Performed By: #### 2 [id number] #### [facility] [address] [place] [address] CBC w/ Auto Diffon 5 Basophil Absolute 0.0 E9/L Normal 0.0-0.2 [facility] Comment on above: Performed By: #### 2 [id number] #### [facility] [address] [place] [address] Basophils/100 WBC (Bld) 0.6 % Normal 0.0-2.0 [facility] Comment on above: Performed By: #### 2 [id number] #### [facility] [address] [place] [address] Eos Absolute 0.0 E9/L Normal 0.0-0.5 [facility] Comment on above: Performed By: #### 2 [id number] #### [facility] [address] [place] [address] Eosinophils/100 WBC (Bld) 0.5 % Normal 0.0-8.0 [facility] Comment on above: Performed By: #### 2 [id number] #### [facility] [address] [place] [address] Erythrocyte distribution width (RBC) [Ratio] 12.7 % Normal 10.9-14.2 [facility] Comment on above: Performed By: #### 2 [id number] #### [facility] [address] [place] [address] Hematocrit (Bld) [Volume fraction] 42.0 % Normal 34.0-46.0 [facility] Comment on above: Performed By: #### 2 [id number] #### [facility] [address] [place] [address] Hemoglobin (Bld) [Mass/Vol] 14.3 g/dL Normal 12.0-16.0 [facility] Comment on above: Performed By: #### 2 [id number] #### [facility] [address] [place] [address] Lymph Absolute 1.1 E9/L Normal 1.0-4.0 [facility] Comment on above: Performed By: #### 2 [id number] #### [facility] [address] [place] [address] Lymphocytes/100 WBC (Bld) 21.4 % Normal 14.0-50.0 [facility] Comment on above: Performed By: #### 2 [id number] #### [facility] [address] [place] [address] MCH (RBC) [Entitic mass] 29.3 pg Normal 27.0-34.0 [facility] Comment on above: Performed By: #### 2 [id number] #### [facility] [address] [place] [address] MCHC (RBC) [Mass/Vol] 34.1 g/dL Normal 31.4-36.0 [facility] Comment on above: Performed By: #### 2 [id number] #### [facility] [address] [place] [address] MCV (RBC) [Entitic vol] 85.9 fL Normal 80.0-100.0 [facility] Comment on above: Performed By: #### 2 [id number] #### [facility] [address] [place] [address] Coffee Absolute 0.2 E9/L Normal 0.2-1.0 [facility] Comment on above: Performed By: #### 2 [id number] #### [facility] [address] [place] [address] Monocytes/100 WBC (Bld) 4.4 % Normal 4.0-14.0 [facility] Comment on above: Performed By: #### 2 [id number] #### [facility] [address] [place] [address] Neutro Absolute 3.7 E9/L Normal 2.0-7.5 [facility] Comment on above: Performed By: #### 2 [id number] #### [facility] [address] [place] [address] Neutro Auto 73.1 % Normal 36.0-75.0 [facility] Comment on above: Performed By: #### 2 [id number] #### [facility] [address] [place] [address] Platelet 237.0 E9/L Normal 150.0-500.0 [facility] Comment on above: Performed By: #### 2 [id number] #### [facility] [address] [place] [address] Platelet mean volume (Bld) [Entitic vol] 8.3 fL Normal 6.4-10.8 [facility] Comment on above: Performed By: #### 2 [id number] #### [facility] [address] [place] [address] RBC 4.9 E12/L Normal 4.3-5.9 [facility] Comment on above: Performed By: #### 2 [id number] #### [facility] [address] [place] [address] WBC 5.1 E9/L Normal 4.0-11.0 [facility] Comment on above: Performed By: #### 2 [id number] #### [facility] [address] [place] [address] Free T4on 10-19-2024 Free T4 [Mass/Vol] 0.88 ng/dL Normal 0.58-1.64 [facility] Comment on above: Performed By: #### 2 [id number] #### [facility] [address] [place] [address] [id number] 10-19-2024 HbA1c (Bld) [Mass fraction] 5.0 % Normal <=5.9 [facility] Comment on above: Performed By: #### 7 [id number] #### [facility] [address] [place] [address] Progesteroneon 10-19-2024 Progesterone Lvl 5.16 ng/mL Invalid Interpretation Code [facility] Comment on above: Result Comment: 'F N ON FOLLICULAR = 0.10 - 0.60' 'LUTEAL = 3.00 - 17.5' 'MIDLUTEAL = 3.30 - 18.6' 'POST-MENOPAUSE = 0.10 - 0.40' '-FIRST TRIMESTER = 8.30 - 66.5' 'SECOND TRIMESTER = 18.9 - 66.1' 'THIRD TRIMESTER = 35.8 - 312.4' 'MALES = 0.14 - 2.06' Performed By: #### 2 [id number] #### [facility] [address] [place] [address] TSHon 10-19-2024 TSH Qn 3.07 m[IU]/L Normal 0.34-5.60 [facility] Comment on above: Performed By: #### 2 [id number] #### [facility] [address] [place] [address] RECURRENT VAGINITIS (HTRX)on 10-15-2024 ATOPOBIUM VAGINAE 0 [facility] ATOPOBIUM VAGINAE Not detected [facility] BVAB 2,3 (BACTERIAL VAGINOSIS ASSOCIATED BACTERIA 2, 3); MOBILUNCUS SPP 0 [facility] BVAB 2,3 (BACTERIAL VAGINOSIS ASSOCIATED BACTERIA 2, 3); MOBILUNCUS SPP Not detected [facility] DILMA ALBICANS, PARAPSILOSIS, TROPICALIS 0 [facility] DILMA ALBICANS, PARAPSILOSIS, TROPICALIS Not detected [facility] DILMA GLABRATA 0 [facility] DILMA GLABRATA Not detected [facility] DILMA KRUSEI 0 [facility] DILMA KRUSEI Not detected [facility] CHLAMYDIA TRACHOMATIS 0 [facility] CHLAMYDIA TRACHOMATIS Not detected N [facility] GARDNERELLA VAGINALIS 0 [facility] GARDNERELLA VAGINALIS Not detected N [facility] MEGASPHAERA (TYPES 1, 2) 0 [facility] MEGASPHAERA (TYPES 1, 2) Not detected [facility] MYCOPLASMA GENITALIUM 0 [facility] MYCOPLASMA GENITALIUM Not detected N [facility] NEISSERIA GONORRHOEAE 0 [facility] NEISSERIA GONORRHOEAE Not detected N [facility] TRICHOMONAS VAGINALIS 0 [facility] TRICHOMONAS VAGINALIS Not detected N [facility] HCG ( test) Ql (U)o n 10-14-2024 Interpretation and review of laboratory results Normal [facility] Preg Test, Ur Negative Negative [facility] Urinalysis macro (dipstick) panel (U)on 10-14-2024 Bilirubin, UA Negative Negative - 4(70) +++ mg/dL [facility] Blood, UA Positive Negative - 50 Dereck/mcL [facility] Comment on above: Trace Clarity, UA Clear [facility] Color, UA Yellow [facility] Glucose, UA Negative Negative - 1999(110) ++++ mg/dL [facility] Interpretation and review of laboratory results Abnormal [facility] Ketones, UA Negative Negative - 160(16) ++++ mg/dL [facility] Leukocytes, UA Negative Negative - 500+++ Carmela/mcL [facility] Nitrite, UA Negative Negative - Positive [facility] pH, UA 6.5 5 - 9 [facility] Protein, UA Negative Negative - 1999(20) ++++ mg/dL [facility] Spec Grav, UA 1.005 1 - 1.03 [facility] Urobilinogen, UA 0.2 0.2 - 12 mg/dL [facility] Fish and Urine Cyt o ([facility])on 10-06-2024 UVFISH & UC Diagnosis Info Invalid Interpretation Code [facility] Comment on above: Result Comment: A:Ur ine,Urine:Voided Diagnosis Summary - Adequate cellularity for evaluation. Diagnosis Summary - The UroVysion FISH study detected normal copy numbers for chromosomes 3, 7, 17, and 9p21. 42 cells were analyzed in this evaluation. No evidence of aneuploidy for chromosomes 3, 7, or 17 or deletion of the 9p21 locus was found in cells present in this specimen. This test does not rule out the possibility of a low grade non-invasive papillary urothelial carcinoma. These findings should be correlated with cytology and cystoscopy results. * CPT: 97783, 77139. Microscopic Notes - Microscopic Notes - Abnormal cells 9p21 deletions: Abnormal cells aneploid events: Total cells analyzed: 42 Hematuria: Gross Description Site ID:A color Yellow fixative Alcohol Received 100 mls of clear yellow fluid with the patient's name and, Urine on the vial. Electronically signed by : on: 10/06/2024 10:53:52 Performed By: #### 1 [id number] #### [facility] [address] [place] [address] Main OR Intraoperative Recor don 10-05-2024 Main OR Intraoperative Record Main OR Intraoperative Record IntraOp Document Type FTURO Summary Primary Physician: Raul CERDA MD Finalized Date/Time: 10/05/24 09:38:19 Pt. Name: JYOTI PARKS Tomeka/Sex: 1985 Female Med Rec #: [id number] Physician: Raul CERDA MD Financial #: [id number] Pt. Type: O Room/Bed: / Admit/Disch: 10/05/24 08:40:11 - Institution: Case Times FTURO Entry 1 Patient Times In Room 10/05/24 09:28:00 Out Room 10/05/24 09:40:00 Procedure Times Start 10/05/24 09:31:00 Stop 10/05/24 09:35:00 Anesthesia Times Last Modified By: Kayy Pinto Ii 10/05/24 09:35:57 Case Attendance FTURO Entry 1 Entry 2 Entry 3 Case Attendee Raul CERDA MD COLLAR TURNER OPERATOR, Kayy Webb Ii Role Performed Surgeon - Primary Scrub - Primary Hospitality Internship - Primary Time In 10/05/24 09:28:00 10/05/24 09:28:00 10/05/24 09:28:00 Time Out 10/05/24 09:40:00 10/05/24 09:40:00 10/05/24 09:40:00 Procedure CYSTOSCOPY LOCAL(.) CYSTOSCOPY LOCAL(.) CYSTOSCOPY LOCAL(.) Comments Last Modified By: Kayy Pinto Ii, Alfons Ii F Letrondo, Alfons Ii F 10/05/24 09:35:58 10/05/24 09:35:58 10/05/24 09:35:58 Surgical Procedures FTURO Entry 1 Procedure Description Procedure CYSTOSCOPY LOCAL Modifiers . Surgeon Description CYSTO Primary Procedure Yes Primary Surgeon Raul CERDA MD Start 10/05/24 09:31:00 Stop 10/05/24 09:35:00 Anesthesia Type Local Surgical Service Urology Wound Class 2 - Clean-Contaminated Last Modified By: Kayy Pinto Ii 10/05/24 09:35:48 General Case Data FTURO Pre-Care Text: Classifies surgical wound, implements aseptic technique, initiates traffic control Entry 1 Case Information OR URO 1 FT Case Level None Wound Class 2 - Clean-Contaminated Specialty Urology Preop Diagnosis GROSS HEMATURIA Postop Same As Preop Yes Postop Diagnosis GROSS HEMATURIA Outcomes Met? Yes Last Modified By: aKyy Pinto Ii 10/05/24 09:26:43 Post-Care Text: The patient is free from signs and symptoms of infection EU IntraOp - FTURO Pre-Care Text: Implements protective measures prior to operative or invasive procedure, confirms identity before the operative or invasive procedure, verifies operative procedure, surgical site, and laterality Entry 1 EU Perioperative Protocols Procedure(s) CYSTOSCOPY LOCAL(.) Patient Identity Birthday, ID Band Verified (select at Check, Patient least 2): Participation Consents / H and P H&P, Surgery/Procedure Operative Site N/A Verified Consent Marking Verified Surgical Site Yes Laterality Verified n/a Verified Procedure Verified Yes Correct Patient Yes Position Verified Availability Equipment, Medication Time Out LEXIS JUAREZ, Raul Olvera, Verified (If Participants Deb ANGLIN, Cindy Applicable) Blair Lopez Alfons Ii F Time Out Complete 10/05/24 09:27:00 Allergies Reviewed? Yes Allergies Reviewed Self/Patient With Body Position Frog Legged Prep Area PERINEUM Prep Agents Betadine Solution Skin. Condition Intact, [place], Warm, & Description UNCHANGED Dry Additional None Specimens Collected Vitals - EU Blood Pressure 120/81 Pulse 74 bpm Respirations 12 br/min SPO2 98 % I&O - EU Outcomes Met? Yes Last Modified By: Kayy Pinto Ii 10/05/24 09:31:12 Post-Care Text: The patient is free from signs and symptoms of injury caused by extraneous objects Sign Out FTURO Entry 1 Before Patient Leaves OR Nurse verbally Yes Nurse verbally Yes confirms with the confirms with the team the name of team that the procedure(s) instrument, sponge, recorded and needle counts are correct (or N/A) Nurse verbally n/a Nurse verbally Yes confirms with the confirms with the team how the team whether there specimen is labeled are any equipment (including patient problems to be name), if applicable addressed Sign Out Complete 10/05/24 09:35:00 Last Modified By: Kayy Pinto Ii 10/05/24 09:35:52 Case Comments Finalized By: Kayy Pinto Ii Document Signatures Signed By: Kayy Pinto Ii 10/05/24 09:38 Normal [facility] Main OR Preoperative Recordo n 10-05-2024 Main OR Preoperative Record Main OR Preoperative Record Holding Area Document Type FTURO Summary Primary Physician: Raul CERDA MD Finalized Date/Time: 10/05/24 09:06:36 Pt. Name: JYOTI PARKS /Sex: 1985 Female Med Rec #: [id number] Physician: Raul CERDA MD Financial #: [id number] Pt. Type: O Room/Bed: / Admit/Disch: 10/05/24 08:40:11 - Institution: Case Times Holding FTURO Pre-Care Text: Verifies consent for planned procedure, identifies individual values and wishes concerning care, includes family members in perioperative teaching Secures patient's records' belongings, and valuables, maintains patient's dignity and privacy, and maintains patient confidentiality Entry 1 In Holding 10/05/24 09:01:00 Outcomes Met? Yes Last Modified By: ROGER Caceres RN, Ruthann 10/05/24 09:01:43 Post-Care Text: The patient participates in decisions affecting his or her perioperative plan of care The patient's right to privacy is maintained Surgery Checklist FTURO Entry 1 Patient Birthday, ID Band Procedure History and Physical, Identification: Check, Patient Verification: Surgical Consent, With Participation Patient NPO after Midnight: n/a Personal Items clothes, ear rings Comment: Limitations: none Complaints of Pain: No Skin Integrity Unable to Visualize Vitals - EU Blood Pressure 120/81 Pulse 70 bpm Respirations 12 br/min SPO2 99 % Additional None RN Reviewed Yes Specimens Collected Last Modified By: ROGER Caceres RN, Ruthann 10/05/24 09:06:32 Finalized By: ROGER Caceres RN, Ruthann Document Signatures Signed By: ROGER Caceres RN, Ruthann 10/05/24 09:06 Normal [facility] Operative Reporton Operative Report Operative Report Patient: JYOTI PARKS Age: 39 years Sex: Female : 1985 Associated Diagnoses: None Author: Raul CERDA MD Procedure Operative Information Details: Date/ Time: 10/05/2024 09:40:00. Pre-Op Dx: Gross Hematuria - R31.0. Post-Op Dx: Same. Anesthesia Type: Local. Procedure: Local Cystoscopy. Complications: None. Risks/Benefits/Infor med Consent: Surgical risks, benefits, details of the procedure have been explained to the patient, Full informed consent has been obtained. Intraoperative Information Prepped: Patient is brought back to the endoscopy suite, Patient is placed in modified dorso/lithotomy position, Patient prepped in the usual fashion with Betadine solution, 2% Xylocaine Jelly is placed per Urethra, After waiting several minutes the Cystoscope is introduced. The Urethra is: Normal. The Bladder is: Trabeculated No bladder tumors. No GLENN. No prolapse. No atrophic vaginitis. The ureteral orifices: Show efflux of clear urine. Devices Implanted: None. Removal: Cystoscope is removed, The patient tolerated it well. Postoperative Information Discharge: Patient is discharged home with antibiotic coverage, Follow up arranged. Follow-up will be as needed. She will call if she gets more urinary tract infections and/or gross hematuria.. Normal [facility] Comment on above: Result Comment: Elec tronically Signed By: Raul CERDA MD\.br\Date and Time Signed: 10/05/24 09:42 EDT Ambulatory Visit Summaryon 0 09-27-2024 Ambulatory Visit Summary Ambulatory Visit Summary JYOTI PARKS :1985 Visit Date:09/27/2024 Ambulatory Visit Instructions Your Diagnosis Gross hematuria Your Care Team Attending Physician - Raul CERDA MD Primary Care Physician - [facility], GENERIC This Is Your Medications List doxycycline (doxycycline hyclate 100 mg Cap) Contact prescribing physician if questions or concerns levothyroxine (levothyroxine 50 mcg (0.05 mg) Tab) rimegepant (Nurtec ODT 75 mg oral tablet, disintegrating) tizanidine (tiZANidine 4 mg Tab) Procedures Performed Salpingectomy, Tonsillectomy. Discharge Vitals Temperature (Temporal Artery) 36.8 ???C Respiratory Rate 16 Blood Pressure 112/78 Height 157 cm Height 62 in Weight 55 kg Weight 121.254 lb BMI 22.31 What to do next Scheduled Follow-Up Appointments 2024 8:20 AM EDT With: Eric JUAREZ, Uri Leung Where: [facility] [id number] [place], [place] [id number]- You Need to Schedule the Following Appointments Follow Up with LEXIS JUAREZ, PEDRO Hastings When: Comments: sched cysto Where: [facility] [address], [place] [address] [phone] Medications What How Much When Instructions New doxycycline (doxycycline hyclate 100 mg Cap) 1 Capsules By Mouth Every day take one day before procedure and take one day after procedure Pickup at [facility]/pharmacy #[id number] Unchanged levothyroxine (levothyroxine 50 mcg (0.05 mg) Tab) 30 EA, TAKE 1 TABLET BY MOUTH EVERY DAY IN THE MORNING ON EMPTY STOMACH Contact prescribing physician if questions or concerns Unchanged rimegepant (Nurtec ODT 75 mg oral tablet, disintegrating) See instructions PLACE ONE TABLET BY MOUTH EVERY DAY NEEDED FOR MIGRAINE Contact prescribing physician if questions or concerns Unchanged tizanidine (tiZANidine 4 mg Tab) 1 Tablets By Mouth Every day Contact prescribing physician if questions or concerns Pharmacy Information [facility]/pharmacy #[id number]: [address], [place] [phone] Allergies Qulipta (Swollen face) Azithromycin 5 Day Dose Pack (Rash) Helen 24 Hour Allergy (Menorrhagia) Augmentin (Dizziness) Biaxin (Dizzy) Eggs (Unknown) Restasis (Vision disorder) Vicodin (Nausea and vomiting) sulfa drugs (Headache) Problems Ongoing - Any problem that you are currently receiving treatment for. BMI 21.0-21.9, adult Hypothyroidism Migraines Patient Survey You may receive a survey via text or e-mail asking about your office visit. Please share your experience with us by completing your survey. We appreciate your feedback and thank you for choosing us for your care. Education Materials Cystoscopy Cystoscopy is a procedure that is used to help diagnose and sometimes treat conditions that affect the lower urinary tract. The lower urinary tract includes the bladder and the urethra. The urethra is the tube that drains urine from the bladder. Cystoscopy is done using a thin, tube-shaped instrument with a light and camera at the end (cystoscope). The cystoscope may be hard or flexible, depending on the goal of the procedure. The cystoscope is inserted through the urethra, into the bladder. Cystoscopy may be recommended if you have: ??? Urinary tract infections that keep coming back. ??? Blood in the urine (hematuria). ??? An inability to control when you urinate (urinary incontinence) or an overactive bladder. ??? Unusual cells found in a urine sample. ??? A blockage in the urethra, such as a urinary stone. ??? Painful urination. ??? An abnormality in the bladder found during an intravenous pyelogram (IVP) or CT scan. Cystoscopy may also be done to remove a sample of tissue to be examined under a microscope (biopsy). Tell a health care provider about: ??? Any allergies you have. ??? All medicines you are taking, including vitamins, herbs, eye drops, creams, and skza-bjr-ztsjund medicines. ??? Any problems you or family members have had with anesthetic medicines. ??? Any blood disorders you have. ??? Any surgeries you have had. ??? Any medical conditions you have. ??? Whether you are or may be . What are the risks? Generally, this is a safe procedure. However, problems may occur, including: ??? Infection. ??? Bleeding. ??? Allergic reactions to medicines. ??? Damage to other structures or organs. What happens before the procedure? Medicines Ask your health care provider about: ??? Changing or stopping your regular medicines. This is especially important if you are taking diabetes medicines or blood thinners. ??? Taking medicines such as aspirin and ibuprofen. These medicines can thin your blood. Do not take these medicines unless your health care provider tells you to take them. ??? Taking wgvw-xyo-gehlkur medicines, vitamins, herbs, and supplements. Tests Y (more content not included)... Normal [facility] Ambulatory Visit Summary Ambulatory Visit Summary JYOIT PARKS :1985 Visit Date:09/27/2024 Ambulatory Visit Instructions Your Diagnosis Gross hematuria Your Care Team Attending Physician - LEXIS JUAREZ, Raul Olvera [facility] GENER[facility] This Is Your Medications List Contact prescribing physician if questions or concerns levothyroxine (levothyroxine 50 mcg (0.05 mg) Tab) rimegepant (Nurtec ODT 75 mg oral tablet, disintegrating) tizanidine (tiZANidine 4 mg Tab) Procedures Performed Salpingectomy, Tonsillectomy. Discharge Vitals Temperature (Temporal Artery) 36.8 ???C Respiratory Rate 16 Blood Pressure 112/78 Height 157 cm Height 62 in Weight 55 kg Weight 121.254 lb BMI 22.31 What to do next Scheduled Follow-Up Appointments 2024 8:20 AM EDT With: Eric JUAREZ, Uri Leung Where: [address] [address]- You Need to Schedule the Following Appointments Follow Up with LEXIS JUAREZ, PEDRO Hastings When: Comments: sched cysto Where: [facility] [address] , [place] [phone] Medications What How Much When Instructions Unchanged levothyroxine (levothyroxine 50 mcg (0.05 mg) Tab) 30 EA, TAKE 1 TABLET BY MOUTH EVERY DAY IN THE MORNING ON EMPTY STOMACH Contact prescribing physician if questions or concerns Unchanged rimegepant (Nurtec ODT 75 mg oral tablet, disintegrating) See instructions PLACE ONE TABLET BY MOUTH EVERY DAY NEEDED FOR MIGRAINE Contact prescribing physician if questions or concerns Unchanged tizanidine (tiZANidine 4 mg Tab) 1 Tablets By Mouth Every day Contact prescribing physician if questions or concerns Allergies Qulipta (Swollen face) Azithromycin 5 Day Dose Pack (Rash) Helen 24 Hour Allergy (Menorrhagia) Augmentin (Dizziness) Biaxin (Dizzy) Eggs (Unknown) Restasis (Vision disorder) Vicodin (Nausea and vomiting) sulfa drugs (Headache) Problems Ongoing - Any problem that you are currently receiving treatment for. BMI 21.0-21.9, adult Hypothyroidism Migraines Patient Survey You may receive a survey via text or e-mail asking about your office visit. Please share your experience with us by completing your survey. We appreciate your feedback and thank you for choosing us for your care. Education Materials Cystoscopy Cystoscopy is a procedure that is used to help diagnose and sometimes treat conditions that affect the lower urinary tract. The lower urinary tract includes the bladder and the urethra. The urethra is the tube that drains urine from the bladder. Cystoscopy is done using a thin, tube-shaped instrument with a light and camera at the end (cystoscope). The cystoscope may be hard or flexible, depending on the goal of the procedure. The cystoscope is inserted through the urethra, into the bladder. Cystoscopy may be recommended if you have: ??? Urinary tract infections that keep coming back. ??? Blood in the urine (hematuria). ??? An inability to control when you urinate (urinary incontinence) or an overactive bladder. ??? Unusual cells found in a urine sample. ??? A blockage in the urethra, such as a urinary stone. ??? Painful urination. ??? An abnormality in the bladder found during an intravenous pyelogram (IVP) or CT scan. Cystoscopy may also be done to remove a sample of tissue to be examined under a microscope (biopsy). Tell a health care provider about: ??? Any allergies you have. ??? All medicines you are taking, including vitamins, herbs, eye drops, creams, and djop-jht-shrmrwd medicines. ??? Any problems you or family members have had with anesthetic medicines. ??? Any blood disorders you have. ??? Any surgeries you have had. ??? Any medical conditions you have. ??? Whether you are or may be . What are the risks? Generally, this is a safe procedure. However, problems may occur, including: ??? Infection. ??? Bleeding. ??? Allergic reactions to medicines. ??? Damage to other structures or organs. What happens before the procedure? Medicines Ask your health care provider about: ??? Changing or stopping your regular medicines. This is especially important if you are taking diabetes medicines or blood thinners. ??? Taking medicines such as aspirin and ibuprofen. These medicines can thin your blood. Do not take these medicines unless your health care provider tells you to take them. ??? Taking wahn-bam-werhsyr medicines, vitamins, herbs, and supplements. Tests You may have an exam or testing, such as: ??? X-rays of the bladder, urethra, or kidneys. ??? CT scan of the abdomen or pelvis. ??? Urine tests to check for signs of infection. General instructions ??? Follow instructions from your health care provider about eating or drinking restrictions. ??? As (more content not included)... Normal [facility] UroVysion Fish and Urine Cyt o ([facility])on 09-27-2024 [facility] Method of Extraction Voided Normal [facility] Comment on above: Performed By: #### 1 [id number] #### [facility] [address] [place] [address] [facility] Number of Jars 1 Invalid Interpretation Code [facility] Comment on above: Performed By: #### 1 [id number] #### [facility] [address] [place] [address] [facility] Specimen Urine Normal [facility] Comment on above: Performed By: #### 1 [id number] #### [facility] [address] [place] [address] [facility] Type of Service Technical Only Normal [facility] Comment on above: Performed By: #### 1 [id number] #### [facility] [address] [place] [address] Urology Office/Clinic Noteon 09-27-2024 Urology Office/Clinic Note Urology Office/Clinic Note Chief Complaint New patient HPI Staff 38 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 Blood in urine. PCP Dr Gibbs. CT abdomen/Pelvis w/o contrast done 08/31/24 BBSQ: 8 Denies urological issues at this time. History of Present Illness Tests reviewed: reviewed UA, ER notes & imaging & labs I have reviewed the previous health record information and history for this patient from external providers. I have reviewed and verified the staff HPI to be accurate for this encounter. Review of Systems PHQ Score Initial Depression Screen Score: 0 SCORE ROS - Provider Constitutional: denies weight loss, denies hot flashes. Eyes: denies eye problems. Gastrointestinal: denies nausea, denies vomiting. Cardiovascular: denies chest pain or angina. Integumentary: no dryness Musculoskeletal: denies musculoskeletal symptoms. ENMT: denies otolaryngeal symptoms. Respiratory: no shortness of breath. Heme/Lymph: denies easy bleeding tendency, denies easy bruising tendency. Psychiatric: no confusion, no anxiety. Genitourinary: See HPI. Physical Exam Vitals & Measurements T: 36.8 ???C(Temporal Artery) RR: 16 BP: 112/78 HT: 157 cm HT: 62 in WT: 55 kg WT: 121.254 lb BMI: 22.31 General Appearance: alert , no acute distress, well nourished, well developed female. Assessment/Plan Jyoti is a new pt here for f/u to ER due to gross hematuria. 1. Gross hematuria (R31.0: Gross hematuria) Went to [facility] ER 08/31/24 due to gross hematuria, dysuria, and urgency. Neg ucx. CT AP wo con 08/31/24 [facility] - No hydronephrosis, significant urinary tract calculi, surrounding inflammatory changes, parenchymal atrophy, scarring, or suspicious mass. States she was voiding blood w clots. Did take abx course. Has had 3-4 UTIs in her life w gross hematuria. No isolated gross hematuria episodes. Never a smoker. UA today shows trace-lysed blood, neg for infection. urine cx from ER came back neg. Shares she is perimenopausal. Unsure when her mother went through menopause as she passed when pt was 25 yo. Educated pt on menopausal changes causing vaginal atrophy, pain w intercourse, and recurrent UTIs. Discussed other etiologies contributing to gross hematuria including urethral stricture. Shares her sister has this w hx of recurrent UTIs. However this has never been an issue/concern for herself. Denies straining to void. Feels she empties Discussed hematuria workup includes upper urinary tract imaging (already completed), evaluation of the urinary cells with urine cytology and possible a FISH test, and a cystoscopy to rule out lower urinary tract pathology. Pt aware that a distinct etiology of the hematuria may not be clear upon conclusion of the workup. The rationale for this workup has been discussed, and all questions have been answered. -Will schedule cystoscopy. The risks and benefits for cystoscopy have been discussed. The risks include bleeding, infection, and irritation of the bladder and urinary channel, among others. The patient, after being informed of procedural details and after questions have been answered, wishes to proceed. Full informed consent has been obtained. Will order Local anesthesia. -Consider estrogen cream if atrophic vaginitis is found Follow-up With When Contact Information Raul CERDA MD, [facility] [address], [place] [address]- [phone] Additional Instructions: sched cysto Patient Education Cystoscopy Hematuria, Adult I, Jasmine Johnson, personally scribed for Dr. Cerda on 09/27/2024 09:50:25. . Documentation recorded by the scribe, Jasmine Johnson, accurately reflects the services(s) I performed and decisions made by me. Authenticated by Dr. Cerda on 09/27/2024 09:53:16. Problem List/Past Medical History Ongoing BMI 21.0-21.9, adult Hypothyroidism Migraines Historical No qualifying data Procedure/Surgical History Salpingectomy, Tonsillectomy. Medications levothyroxine 50 mcg (0.05 mg) Tab Nurtec ODT 75 mg oral tablet, disintegrating, See Instructions tiZANidine 4 mg Tab, 4 mg= 1 tab(s), Oral, Daily, Not taking Allergies Qulipta (Swollen face) Azithromycin 5 Day Dose Pack (Rash) Helen 24 Hour Allergy (Menorrhagia) Augmentin (Dizziness) Biaxin (Dizzy) Eggs (Unknown) Restasis (Vision disorder) Vicodin (Nausea and vomiting) sulfa drugs (Headache) Social History Alcohol Never., 08/31/2024 Substance Abuse Never., 08/31/2024 Tobacco Never (less than 100 in lifetime) Tobacco Use:. Never Smokeless Tobacco Use:., 09/27/2024 Family History Acute myocardial infarction: Father. Diabetes mellitus: Sister. Diabetes mellitus type 1: Grandparent. Heart disease: Mother and Father. Hyperlipidemia: Mother and Father. Hypertension: Mother and Father. Immunizations Vaccine Date Status Comments influenza virus vaccine, inactivated - Not Given Patient Refuses La (more content not included)... Normal [facility] Comment on above: Result Comment: Elec tronically Signed By: Raul CERDA MD\.br\Date and Time Signed: 09/27/24 09:53 EDT\.br\Electronically Co-Signed By: Jasmine Johnson\.br\Date and Time Co-Signed: 09/27/24 09:50 EDT C Urineon 09-02-2024 Bacteria identified Cx Nom (U) Microbiology PROCEDURE: Urine Culture [R1] SOURCE: U CleanCatch BODY SITE: COLLECTED DATE/TIME: 08/31/2024 10:19 EDT RECEIVED DATE/TIME: 08/31/2024 13:54 EDT START DATE/TIME: 08/31/2024 13:54 EDT FREE TEXT SOURCE: Mj Shell DO, DO, Kevin M. FINAL REPORTS Final Report [] Verified Date/Time: 09/02/2024 08:45 EDT No growth at 2 days. Performing Locations R1: This test was performed at: [facility], [address] [place] [address], [id number] , , [facility] Comment on above: Performed By: #### 2 [id number] #### [facility] [address] [place] [address] Ambulatory Visit Summaryon 0 08-31-2024 Ambulatory Visit Summary Ambulatory Visit Summary JYOTI PARKS :1985 Visit Date:08/31/2024 Ambulatory Visit Instructions Your Diagnosis Hematuria Your Care Team Attending Physician - Uri Gibbs MD Primary Care Physician - Uri Gibbs MD This Is Your Medications List levothyroxine (levothyroxine 50 mcg (0.05 mg) Tab) rimegepant (Nurtec ODT 75 mg oral tablet, disintegrating) tizanidine (tiZANidine 4 mg Tab) Procedures Performed Salpingectomy, Tonsillectomy. Discharge Vitals Temperature (Oral) 36.4 ???C Heart Rate (Peripheral) 78 Respiratory Rate 20 Blood Pressure 110/64 Height 157.0 cm Height 62 in Weight 54.5 kg Weight 120.152 lb BMI 22.11 What to do next Scheduled Follow-Up Appointments 2024 8:20 AM EDT With: Uri Gibbs MD Where: [place] [id number]- Medications What How Much When Instructions Unchanged levothyroxine (levothyroxine 50 mcg (0.05 mg) Tab) 30 EA, TAKE 1 TABLET BY MOUTH EVERY DAY IN THE MORNING ON EMPTY STOMACH Unchanged rimegepant (Nurtec ODT 75 mg oral tablet, disintegrating) See instructions PLACE ONE TABLET BY MOUTH EVERY DAY NEEDED FOR MIGRAINE Unchanged tizanidine (tiZANidine 4 mg Tab) 1 Tablets By Mouth Every day Allergies Qulipta (Swollen face) Azithromycin 5 Day Dose Pack (Rash) Helen 24 Hour Allergy (Menorrhagia) Augmentin (Dizziness) Biaxin (Dizzy) Eggs (Unknown) Restasis (Vision disorder) Vicodin (Nausea and vomiting) sulfa drugs (Headache) Problems Ongoing - Any problem that you are currently receiving treatment for. BMI 21.0-21.9, adult Hypothyroidism Migraines Patient Survey You may receive a survey via text or e-mail asking about your office visit. Please share your experience with us by completing your survey. We appreciate your feedback and thank you for choosing us for your care. Normal [facility] BMPon 08-31-2024 Anion gap [Moles/Vol] 10 mmol/L Normal 6-16 [facility] Comment on above: Performed By: #### 2 [id number] #### [facility] [address] [place] [address] BUN/Creat Ratio 20 No Units Normal 10-20 [facility] Comment on above: Performed By: #### 2 [id number] #### [facility] [address] [place] [address] Calcium [Mass/Vol] 9.4 mg/dL Normal 8.9-11.1 [facility] Comment on above: Performed By: #### 2 [id number] #### [facility] [address] [place] [address] Chloride [Moles/Vol] 103 mmol/L Normal 101-111 Fish [facility] Comment on above: Performed By: #### 2 [id number] #### [facility] [address] [place] [address] CO2 [Moles/Vol] 29 mmol/L Normal 21-31 [facility] Comment on above: Performed By: #### 2 [id number] #### [facility] [address] [place] [address] Creatinine [Mass/Vol] 0.7 mg/dL Normal 0.5-1.3 [facility] Comment on above: Performed By: #### 2 [id number] #### [facility] [address] [place] [address] Glucose [Mass/Vol] 93 mg/dL Normal 55-199 [facility] Comment on above: Performed By: #### 2 [id number] #### [facility] [address] [place] [address] Potassium [Moles/Vol] 3.7 mmol/L Normal 3.5-5.3 [facility] Comment on above: Performed By: #### 2 [id number] #### [facility] [address] [place] [address] Sodium [Moles/Vol] 138 mmol/L Normal 135-145 [facility] Comment on above: Performed By: #### 2 [id number] #### [facility] [address] [place] [address] Urea nitrogen [Mass/Vol] 14 mg/dL Normal 5-21 [facility] Comment on above: Performed By: #### 2 [id number] #### [facility] [address] [place] [address] CBC w/ Auto Diffon 5 Basophil Absolute 0.0 E9/L Normal 0.0-0.2 [facility] Comment on above: Performed By: #### 2 [id number] #### [facility] [address] [place] [address] Basophils/100 WBC (Bld) 0.2 % Normal 0.0-2.0 [facility] Comment on above: Performed By: #### 2 [id number] #### [facility] [address] [place] [address] Eos Absolute 0.1 E9/L Normal 0.0-0.5 [facility] Comment on above: Performed By: #### 2 [id number] #### [facility] [address] [place] [address] Eosinophils/100 WBC (Bld) 0.6 % Normal 0.0-8.0 [facility] Comment on above: Performed By: #### 2 [id number] #### [facility] [address] [place] [address] Erythrocyte distribution width (RBC) [Ratio] 12.8 % Normal 10.9-14.2 [facility] Comment on above: Performed By: #### 2 [id number] #### [facility] [address] [place] [address] Hematocrit (Bld) [Volume fraction] 42.2 % Normal 34.0-46.0 [facility] Comment on above: Performed By: #### 2 [id number] #### [facility] [address] [place] [address] Hemoglobin (Bld) [Mass/Vol] 14.4 g/dL Normal 12.0-16.0 [facility] Comment on above: Performed By: #### 2 [id number] #### [facility] [address] [place] [address] Lymph Absolute 0.9 E9/L Low 1.0-4.0 [facility] Comment on above: Performed By: #### 2 [id number] #### [facility] [address] [place] [address] Lymphocytes/100 WBC (Bld) 10.0 % Low 14.0-50.0 [facility] Comment on above: Performed By: #### 2 [id number] #### [facility] [address] [place] [address] MCH (RBC) [Entitic mass] 29.6 pg Normal 27.0-34.0 [facility] Comment on above: Performed By: #### 2 [id number] #### [facility] [address] [place] [address] MCHC (RBC) [Mass/Vol] 34.2 g/dL Normal 31.4-36.0 [facility] Comment on above: Performed By: #### 2 [id number] #### [facility] [address] [place] [address] MCV (RBC) [Entitic vol] 86.4 fL Normal 80.0-100.0 [facility] Comment on above: Performed By: #### 2 [id number] #### [facility] [address] [place] [address] Coffee Absolute 0.4 E9/L Normal 0.2-1.0 [facility] Comment on above: Performed By: #### 2 [id number] #### [facility] [address] [place] [address] Monocytes/100 WBC (Bld) 4.7 % Normal 4.0-14.0 [facility] Comment on above: Performed By: #### 2 [id number] #### [facility] [address] [place] [address] Neutro Absolute 7.7 E9/L High 2.0-7.5 [facility] Comment on above: Performed By: #### 2 [id number] #### [facility] [address] [place] [address] Neutro Auto 84.5 % High 36.0-75.0 [facility] Comment on above: Performed By: #### 2 [id number] #### [facility] [address] [place] [address] Platelet 251.0 E9/L Normal 150.0-500.0 [facility] Comment on above: Performed By: #### 2 [id number] #### [facility] [address] [place] [address] Platelet mean volume (Bld) [Entitic vol] 7.7 fL Normal 6.4-10.8 [facility] Comment on above: Performed By: #### 2 [id number] #### [facility] [address] [place] [address] RBC 4.9 E12/L Normal 4.3-5.9 [facility] Comment on above: Performed By: #### 2 [id number] #### [facility] [address] [place] [address] WBC 9.2 E9/L Normal 4.0-11.0 [facility] Comment on above: Performed By: #### 2 [id number] #### [facility] [address] [place] [address] CHEMISTRYOrdered By: SYSTEM SYSTEM on 08-31-2024 Anion gap [Moles/Vol] 10 mmol/L Normal 6 - 16 mEq/L R emisol Chem Calcium [Mass/Vol] 9.4 mg/dL Normal 8.9 - 11. 1 mg/dL Remisol Chem Chloride [Moles/Vol] 103 mmol/L Normal 101 - 1 11 mmol/L Remisol Chem CO2 [Moles/Vol] 29 mmol/L Normal 21 - 31 mmol/L Remisol Chem Creatinine [Mass/Vol] 0.7 mg/dL Normal 0.5 - 1.3 mg/dL Remisol Chem GFR/1.73 sq M.predicted MDRD (S/P/Bld) [Vol rate/Area] 112 mL/min/1.73 m2 Normal >=59mL/min/1 .73 m2 Remisol Chem Glucose [Mass/Vol] 93 mg/dL Normal 55 - 199 mg/dL Remisol Chem Potassium [Moles/Vol] 3.7 mmol/L Normal 3.5 - 5.3 mmol/L Remisol Chem Sodium [Moles/Vol] 138 mmol/L Normal 135 - 145 mmol/L Remisol Chem Urea nitrogen [Mass/Vol] 14 mg/dL Normal 5 - 21 mg/dL Remisol Chem Urea nitrogen/Creatinine [Mass ratio] 20 mg/mg Normal 10 - [address] Abdomen/Pelvis w/o Contra ston 08-31-2024 CT Abdomen/Pelvis w/o Contrast Exam Date/Time: 08/31/2024 10:56 EDT Reason for [...] pathologically enlarged lymph nodes. Vasculature: No aneurysm. Mesentery/peritoneum /retroperitoneum: No ascites, organized fluid collection, inflammatory changes, [...] Henry Duarte MD Transcribed by: TRAY Technologist: KOKO Cast [facility] ED Clinical Summaryon 2024 ED Clinical Summary ED Clinical Summary [place] [id number] ED Clinical Summary Person Information Name: JYOTI PARKS Dianna/[facility] Age: 38 Years : 1985 Sex: Female Language: Dutch PCP: Uri Gibbs MD Marital Status: Visit Id: Visit Reason: Dysuria; Hematuria; SIGNIFICANT BLOOD IN URINE - SENT TO ER BY DR. GIBBS Speciality: Acuity: 3 Enc Type: Emergency Med Service: Emergency Arrival: 08/31/2024 10:07:03 Discharge: 08/31/2024 11:53:00 LOS: 000 01:46 Checkin: 08/31/2024 10:07:03 Checkout: 08/31/2024 11:53:00 Dispo Type: Home (Routine DC) EVENTS: Event Name Event Status Request Date/Time Start Date/Time Complete Date/Time Arrive Complete 08/31/2024 10:07:03 08/31/2024 10:07:03 08/31/2024 10:07:03 Document Home Meds Request 08/31/2024 10:07:03 Triage Complete 08/31/2024 10:07:03 08/31/2024 10:18:05 08/31/2024 10:18:05 Bed Assign Complete 08/31/2024 10:09:37 08/31/2024 10:09:37 08/31/2024 10:09:37 Dr Exam Complete 08/31/2024 10:09:37 08/31/2024 10:11:39 08/31/2024 10:11:39 RN Exam Complete 08/31/2024 10:09:37 08/31/2024 10:26:00 08/31/2024 10:26:00 Registration Complete 08/31/2024 10:11:39 08/31/2024 10:40:05 08/31/2024 10:40:05 Pending Labs Complete 08/31/2024 10:18:45 08/31/2024 10:41:38 Pending Labs Cancel 08/31/2024 10:20:01 08/31/2024 10:22:26 Pending Labs Cancel 08/31/2024 10:20:24 08/31/2024 10:22:26 Lab Cancel 08/31/2024 10:20:24 08/31/2024 10:22:26 Pending Labs Complete 08/31/2024 10:36:29 08/31/2024 11:10:56 Lab Complete 08/31/2024 10:36:29 08/31/2024 11:10:56 CT Complete 08/31/2024 10:36:29 08/31/2024 10:46:34 08/31/2024 10:56:50 Reg Complete Request 08/31/2024 10:40:05 Reg Bed Request Complete 08/31/2024 10:40:05 08/31/2024 10:40:05 08/31/2024 10:40:05 Pending Labs Collected 08/31/2024 10:41:39 08/31/2024 10:41:39 Lab Collected 08/31/2024 10:41:39 08/31/2024 10:41:39 Pending Labs Complete 08/31/2024 10:43:50 08/31/2024 10:43:50 08/31/2024 11:10:56 Lab Complete 08/31/2024 10:43:50 08/31/2024 10:43:50 08/31/2024 11:10:56 Pending Labs Complete 08/31/2024 10:56:54 08/31/2024 10:56:54 08/31/2024 10:56:54 Discharge Complete 08/31/2024 11:44:30 08/31/2024 11:53:05 08/31/2024 11:53:05 Transfer Complete 08/31/2024 11:53:05 08/31/2024 11:53:05 08/31/2024 11:53:05 ADDRESS: [address] [facility] [id number] PHYS DOC NOTES: MEDICAL INFORMATION: Prescriptions Given: New Medications [facility], [address] [place] [id number], [phone] cephalexin (Keflex 500 mg Cap) 1 Capsules By Mouth every 6 hours for 5 Days. Refills: 0. Medications to Continue with No Changes Other Medications levothyroxine (levothyroxine 50 mcg (0.05 mg) Tab) 30 EA, TAKE 1 TABLET BY MOUTH EVERY DAY IN THE MORNING ON EMPTY STOMACH. rimegepant (Nurtec ODT 75 mg oral tablet, disintegrating) PLACE ONE TABLET BY MOUTH EVERY DAY NEEDED FOR MIGRAINE. Refills: 0. tizanidine (tiZANidine 4 mg Tab) 1 Tablets By Mouth every day. PATIENT EDUCATION INFORMATION: Instructions: Urinary Tract Infection, Adult; Hematuria, Adult Follow up: With: Address: When: Dona Costello In 3 days 09/03/2024 Comments: Follow-up if the blood in your urine continues after treatment for the urinary tract infection. Recommend repeat urinalysis in 3 to 6 weeks to see if the blood is cleared. Call Dr for diagnosis based follow up With: Address: When: Uri Gibbs [address] [place] [address] Business (2) In 3 days 09/03/2024 Comments: Call the office of your primary care doctor to arrange for follow-up within the above-stated timeframe. Follow-up with your primary care doctor about this ED visit. You should review your labs, imaging, and diagnoses from this ED visit with your primary care physician. There are occasionally non-emergent findings that require additional follow-up after your ED visit. If you were prescribed medications you should discuss possible side-effects and drug interactions with your pharmacist. Call 911 or go to the nearest Emergency Department if you develop any new or worsening symptoms. DIAGNOSIS: Hematuria Normal [facility] ED Note-Physicianon 09-01-19 ED Note-Physician ED Note-Physician Basic Information Time Seen: Mj Shell DO 08/31/2024 10:11 Chief Complaint pt. states she has burning with urination and hematuria that started this morning. denies flank pain, n/v, or fevers. History of Present Illness 38-year-old female to the emergency department chief complaint of dysuria, urgency and hematuria. Symptoms started this morning. She denies any flank pain. No nausea vomiting. No fevers. She has a history of UTIs. She reports she is having merritt hematuria with clots. She was seen by PCP. Urine dip was difficult to interpret due to the merritt hematuria. She was sent to the ER for further evaluation. No blood thinner use. Review of Systems A 10 point review of systems is negative except as noted above. Medical and Surgical History: Reviewed and noted Social history: Lives at home Tobacco: Denies Physical Exam Vitals & Measurements T: 37.1 ???C(Oral) HR: 71(Peripheral) RR: 16 BP: 120/67 SpO2: 98% HT: 157 cm WT: 58.7 kg BMI: 23.81 VITALS: I have reviewed the triage vital signs. GENERAL: Well developed, well appearing adult in no acute distress. NEURO: Alert and oriented. Moves all extremities. Face is symmetric and expressive. EYES: PERRL. No scleral icterus or conjunctival injection. No discharge. HENT: Normocephalic, atraumatic. Hearing is grossly intact. Nares grossly patent and without discharge. Mucous membranes moist. NECK: No JVD. Patient moves neck without restriction. CARDIO: Rhythm regular. Normal rate. No murmur, rub, or gallop. Pulses equal bilaterally in the upper and lower extremity. No lower extremity edema. PULM: Lungs clear to auscultation in all wilks. No wheezes, rales, or rhonchi. No conversational dyspnea. No splinting, stridor, or accessory muscle use. GI/: Abdomen is soft and non-tender. Normoactive bowel sounds. EXTREMITIES: Symmetric muscle bulk. No joint swelling. No clubbing, cyanosis, or deformity. SKIN: Warm and dry. Normal turgor. No rash or lesions appreciated. PSYCH: Mood, affect, and interaction is appropriate to the setting. Medical Decision Making Pleasant 38-year-old female to the emergency department with chief complaint of hematuria. Vital stable, the patient is afebrile. Mild suprapubic discomfort. Given the merritt hematuria with clots we will proceed with CT imaging, basic labs and urinalysis with microscopy. Patient agrees with this plan. CT scan without acute findings. Lab work reviewed and noted. She has normal renal function. Normal hemoglobin. Urinalysis is concerning for UTI. I discussed findings with the patient. Will continue her on Keflex for suspected UTI. Urine culture sent. Instructed she needs repeat urinalysis to ensure that hematuria has cleared. She is given urology referral if it does not. Referring PCP was updated. Return precautions were discussed. All questions were answered. The patient was discharged home. Assessment/Plan Acute UTI (N39.0: Urinary tract infection, site not specified) Hematuria (R31.9: Hematuria, unspecified) Orders: cephalexin, 500 mg = 1 cap(s), Oral, q6hr, X 5 day(s), # 20 cap(s), Refills(s) 0, Pharmacy: [facility], 157, cm, 08/31/24 10:18:00 EDT, Height/Length Dosing, 58.7, kg, 08/31/24 10:18:00 EDT, Weight Dosing Basic Metabolic Panel CBC w/ Auto Diff CT Abdomen/Pelvis w/o Contrast eGFR Extra Blue Tube Extra SST Tube UA with Cult Rflx Urine Culture Disposition Plan Patient Discharge Condition Stable Discharge Disposition Home Discharge Prescription List Prescriptions Keflex 500 mg Cap, 500 mg= 1 cap(s), Oral, q6hr Follow-up With When Contact Information Dona Costello In 3 days 09/03/2024 EDT Additional Instructions: Follow-up if the blood in your urine continues after treatment for the urinary tract infection. Recommend repeat urinalysis in 3 to 6 weeks to see if the blood is cleared. Call Dr for diagnosis based follow up Uri Gibbs In 3 days 09/03/[address]T [address] [place] [address] Business (2) Additional Instructions: Call the office of your primary care doctor to arrange for follow-up within the above-stated timeframe. Follow-up with your primary care doctor about this ED visit. You should review your labs, imaging, and diagnoses from this ED visit with your primary care physician. There are occasionally non-emergent findings that require additional follow-up after your ED visit. If you were prescribed medications you should discuss possible side-effects and drug interactions with your pharmacist. Call 911 or go to the nearest Emergency Department if you develop any new or worsening symptoms. Patient Education Urinary Tract Infection, Adult Hematuria, Adult Problem List/Past Medical History Ongoing BMI 21.0-21.9, adult Hypothyroidism Migraines Historical No qualifying data Procedure/Surgical History Salpingectomy, Tonsillectomy. Medications Inpatient No active inpatient medications Home (more content not included)... Normal [facility] Comment on above: Result Comment: Elec tronically Signed By: Mj Shell DO\.br\Date and Time Signed: 08/31/24 13:56 EDT ED Patient Summaryon 025 ED Patient Summary ED Patient Summary [address] [address] Patient Discharge Instructions Person Information Name: JYOTI PARKS Age: 38 Years Arrival Date: 08/31/2024 10:07:03 Discharge Diagnosis: Hematuria Primary Care Physician: Ross MD, Uri E. Provider Information Primary Provider: Mj Shell DO Advanced Department Of Sociology Chair:None The exam and treatment you received in the Emergency Department were for an urgent problem and are not intended as complete care. It is important that you follow up with a doctor, nurse practitioner, or physician???s observation assistant for ongoing care. If your symptoms become worse or you do not improve as expected and you are unable to reach your usual health care provider, you should return to the Emergency Department. We are available 24 hours a day. JYOTI PARKS has been given the following list of patient education materials, prescriptions and follow-up instructions: Follow-up Instructions: With: Address: When: Dona Costello In 3 days 09/03/2024 Comments: Follow-up if the blood in your urine continues after treatment for the urinary tract infection. Recommend repeat urinalysis in 3 to 6 weeks to see if the blood is cleared. Call Dr for diagnosis based follow up With: Address: When: Uri Gibbs [facility]. [place] [id number] [facility] () In 3 days 09/03/2024 Comments: Call the office of your primary care doctor to arrange for follow-up within the above-stated timeframe. Follow-up with your primary care doctor about this ED visit. You should review your labs, imaging, and diagnoses from this ED visit with your primary care physician. There are occasionally non-emergent findings that require additional follow-up after your ED visit. If you were prescribed medications you should discuss possible side-effects and drug interactions with your pharmacist. Call 911 or go to the nearest Emergency Department if you develop any new or worsening symptoms. In the event that this physician does not participate in your insurance network, please consult with your insurance company to find a nearby participating provider. Patient Education Materials: Urinary Tract Infection, Adult; Hematuria, Adult A MESSAGE TO ALL PATIENTS REGARDING OPIOIDS PRESCRIPTION OPIOIDS: WHAT YOU NEED TO KNOW Prescription opioids can be used to help relieve [id number] pain and are often prescribed following a surgery or injury, or for certain health conditions. These medications can be an important part of the treatment but also come with serious risks. It is important to work with your healthcare provider to make sure you are getting the safest, most effective care. WHAT ARE THE RISKS AND SIDE EFFECTS OF OPIOID USE? Prescription opioids carry serious risks of addiction and overdose, especially with prolonged use. An opioid overdose, often marked by slowed breathing, can cause sudden . The use of prescription opioids can have a number of side effects as well, even when taken as directed: ??? Tolerance???meaning you might need to take more of the medication for the same pain relief ??? Physical dependence???meaning you have symptoms of withdrawal when a medication is stopped ??? Increased sensitivity to pain ??? Constipation ??? Nausea, vomiting, and dry mouth ??? Sleepiness and dizziness ??? Confusion ??? Depression ??? Low levels of testosterone that can result in lower sex drive, energy, and strength ??? Itching and sweating RISKS ARE GREATER WITH: ??? History of drug misuse, substance use disorder, or overdose ??? Mental health conditions (such as depression or anxiety) ??? Sleep apnea ??? Older age (65 years and older) ??? Avoid alcohol while taking prescription opioids. Also, unless specifically advised by your health care provider, medications to avoid include: ??? Benzodiazepines (such as Xanax or Valium) ??? Muscle relaxants (such as Soma or Flexeril) ??? Hypnotics (such as Ambien or Lunesta) ??? Other prescription opioids KNOW YOUR OPTIONS Talk to your health care provider about ways to manage your pain that don???t involve prescription opioids. Some of these options may actually work better and have fewer risks and side effects. Options may include: ??? Pain relievers such as acetaminophen, ibuprofen, and naproxen ??? Some medication that are also used for depression or seizures ??? Physical therapy and exercise ??? Cognitive behavioral therapy, a psychological, goal-directed approach, in which patients learn how to modify physical, behavioral, and emotional triggers of pain and stress. IF YOU ARE PRESCRIBED OPIOIDS FOR PAIN: ??? Never take opioids in greater amounts or more often than prescribed. ??? Follow up with your primary health care provider. o Work together to create a plan on how to ma (more content not included)... Normal [facility] Extra Blueon 08-31-2024 Tube Collected Plasma Yes Invalid Interpretation Code [facility] Comment on above: Performed By: #### 1 [id number] #### [facility] [address] [place] [id number] [facility] Medicine Office/Clini c Noteon 08-31-2024 Family Medicine Office/Clinic Note Family Medicine Office/Clinic Note HPI Staff Jyoti is a 38 year old female presenting with Onset: started this morning Symptoms: hematuria, frequency, dysuria Last UTI: January 2024 Hx of kidney stones: no UA in office documented in chart History of Present Illness See staff HPI. Review of Systems PHQ Score Initial Depression Screen Score: 0 SCORE Physical Exam Vitals & Measurements T: 36.4 ???C(Oral) HR: 78(Peripheral) RR: 20 BP: 110/64 SpO2: 100% HT: 157.0 cm HT: 62 in WT: 120.152 lb WT: 54.5 kg BMI: 22.11 General: alert, no acute distress ENMT: oral mucosa moist, Cardiovascular: normal peripheral perfusion Respiratory: respirations non labored Extremities: no deformity, no trauma Neurological: oriented x 4, LOC appropriate for age, CN II-XII intact, motor strength equal & normal bilaterally, speech normal Assessment/Plan Hematuria (R31.9: Hematuria, unspecified) - Because of the amount of blood, I discussed this with the ER and Urology who both recommend an ER visit. - We will continue to monitor and patient is to call us back. Ordered: Urine Culture Urnls Dip Stick Auto w/o Microscopy POC [id number] Follow-up No qualifying data available Problem List/Past Medical History Ongoing BMI 21.0-21.9, adult Hypothyroidism Migraines Historical No qualifying data Procedure/Surgical History Salpingectomy, Tonsillectomy. Medications levothyroxine 50 mcg (0.05 mg) Tab Nurtec ODT 75 mg oral tablet, disintegrating, See Instructions tiZANidine 4 mg Tab, 4 mg= 1 tab(s), Oral, Daily, Not taking Allergies Qulipta (Swollen face) Azithromycin 5 Day Dose Pack (Rash) Helen 24 Hour Allergy (Menorrhagia) Augmentin (Dizziness) Biaxin (Dizzy) Eggs (Unknown) Restasis (Vision disorder) Vicodin (Nausea and vomiting) sulfa drugs (Headache) Social History Alcohol Never., 08/31/2024 Substance Abuse Never., 08/31/2024 Tobacco Never (less than 100 in lifetime) Tobacco Use:., 08/31/2024 Family History Acute myocardial infarction: Father. Diabetes mellitus type 1: Grandparent. Immunizations Vaccine Date Status Comments influenza virus vaccine, inactivated - Not Given Patient Refuses Lab Results Ambulatory Point of Care Results Bilirubin Urine Dipstick: Negative (08/31/24 09:35:00) Blood Urine Dipstick: 3+ Large (08/31/24 09:35:00) Glucose Urine Dipstick: Negative (08/31/24 09:35:00) Leukocytes Urine Dipstick: 1+ Small (08/31/24 09:35:00) Nitrite Urine Dipstick: Negative (08/31/24 09:35:00) Protein Urine Dipstick: 3+ (300 mg/dl) (08/31/24 09:35:00) Specific [place] Urine Dipstick: 1.015 (08/31/24 09:35:00) Urine Appearance Urine Dipstick: Clear (08/31/24 09:35:00) Urine Color Urine Dipstick: Red (08/31/24 09:35:00) Urobilinogen Urine Dipstick: Normal 0.2-1 EU/dl (08/31/24 09:35:00) pH Urine Dipstick: 7 (08/31/24 09:35:00) Normal [facility] Comment on above: Result Comment: Elec tronically Signed By: Eric JUAREZ, Uri Jean.br\Date and Time Signed: 08/31/24 09:53 EDT HEMATOLOGYOrdered By: SYSTEM SYSTEM on 08-31-2024 Basophils/100 WBC (Bld) 0.2 % Normal 0.0 - 2.0 % Remisol Heme Basophils/Leukocytes Auto (Bld) [Pure # fraction] 0.0 E9/L Normal 0.0 - 0.2 E9/L Remisol Heme Eosinophils (Bld) [#/Vol] 0.1 E9/L Normal 0.0 - 0.5 E9/L Remisol Heme Eosinophils/100 WBC (Bld) 0.6 % Normal 0.0 - 8.0 % Remisol Heme Erythrocyte distribution width (RBC) [Ratio] 12.8 % Normal 10.9 - 14.2 % Remisol Heme Hematocrit (Bld) [Volume fraction] 42.2 % Normal 34.0 - 46.0 % Remisol Heme Hemoglobin (Bld) [Mass/Vol] 14.4 g/dL Normal 12.0 - 16.0 gm/dL Remisol Heme Lymphocytes (Bld) [#/Vol] 0.9 E9/L Low 1.0 - 4.0 E9/L Remisol Heme Lymphocytes/100 WBC (Bld) 10.0 % Low 14.0 - 50.0 % Remisol Heme MCH (RBC) [Entitic mass] 29.6 pg Normal 27.0 - 34.0 pg Remisol Heme MCHC (RBC) [Mass/Vol] 34.2 g/dL Normal 31.4 - 36.0 gm/dL Remisol Heme MCV (RBC) [Entitic vol] 86.4 fL Normal 80.0 - 100.0 fL Remisol Heme Monocytes (Bld) [#/Vol] 0.4 E9/L Normal 0.2 - 1.0 E9/L Remisol Heme Monocytes/100 WBC (Bld) 4.7 % Normal 4.0 - 14.0 % Remisol Heme Neutrophils (Bld) [#/Vol] 7.7 E9/L High 2.0 - 7.5 E9/L Remisol Heme Neutrophils/100 WBC (Bld) 84.5 % High 36.0 - 75.0 % Remisol Heme Platelet mean volume (Bld) [Entitic vol] 7.7 fL Normal 6.4 - 10.8 fL Remisol Heme Platelets (Bld) [#/Vol] 251.0 E9/L Normal 150.0 - 500.0 E9/L Remisol Heme RBC (Bld) [#/Vol] 4.9 E12/L Normal 4.3 - 5.9 E12/L Remisol Heme WBC corrected for nucl RBC Auto (Bld) [#/Vol] 9.2 E9/L Normal 4.0 - 11.0 E9/L Remisol Heme UA with Cult Rflxon 09-01-19 25 Color (U) Light-Brown Abnormal Yellow [facility] Comment on above: Result Comment: Micr oscopic readings are only performed on those samples that meet specific criteria set forth by [facility]. Performed By: #### 4 [id number] #### [facility] [address] [place] [address] Glucose (U) [Mass/Vol] Negative Normal Negative [facility] Comment on above: Performed By: #### 4 [id number] #### [facility] [address] [place] [address] Ketones Ql (U) Negative Normal Negative [facility] Comment on above: Performed By: #### 4 [id number] #### [facility] [address] [place] [address] UA Blood 3+ mg/dL Abnormal Negative [facility] Comment on above: Performed By: #### 4 [id number] #### [facility] [address] [place] [address] UA Bacteria Trace Normal Trace [facility] Comment on above: Performed By: #### 4 [id number] #### [facility] [address] [place] [address] UA Clarity Turbid Abnormal Clear [facility] Comment on above: Performed By: #### 4 [id number] #### [facility] [address] [place] [address] UA Leuk Est 500 Carmela/uL Abnormal Negative [facility] Comment on above: Performed By: #### 4 [id number] #### [facility] [address] [place] [address] UA Mucous Negative Normal Negative [facility] Comment on above: Performed By: #### 4 [id number] #### [facility] [address] [place] [address] UA Nitrite Negative Normal Negative [facility] Comment on above: Performed By: #### 4 [id number] #### [facility] [address] [place] [address] UA pH 8.0 Invalid Interpretation Code 5.0-9.0 [facility] Comment on above: Performed By: #### 4 [id number] #### [facility] [address] [place] [address] UA Protein 1+ mg/dL Abnormal Negative [facility] Comment on above: Performed By: #### 4 [id number] #### [facility] [address] [place] [address] UA RBC 31-75 Abnormal 0-3 [facility] Comment on above: Performed By: #### 4 [id number] #### [facility] [address] [place] [address] UA Spec Grav 1.006 Invalid Interpretation Code 1.005-1.030 [facility] Comment on above: Performed By: #### 4 [id number] #### [facility] [address] [place] [address] UA Squam Epithelial 0-2 Invalid Interpretation Code [facility] Comment on above: Performed By: #### 4 [id number] #### [facility] [address] [place] [address] UA Urobilinogen Negative Normal Negative [facility] Comment on above: Performed By: #### 4 [id number] #### [facility] [address] [place] [address] UA WBC >75 Abnormal 0-5 [facility] Comment on above: Performed By: #### 4 [id number] #### [facility] [address] [place] [address] UA WBC Clump 4-10 Abnormal [facility] Comment on above: Performed By: #### 4 [id number] #### [facility] [address] [place] [address] Urobilinogen (U) [Mass/Vol] Negative Normal Negative [facility] Comment on above: Performed By: #### 4 [id number] #### [facility] [address] [place] [address] UA Spec Desc Clean Catch Normal [facility] Comment on above: Performed By: #### 4 [id number] #### [facility] [address] [place] [address] URINALYSISOrdered By: SYSTEM SYSTEM on 08-31-2024 Bacteria Auto Ql (U) Trace /HPF Normal Trace/HPF [facility] UA Auto SS Bilirubin Ql (U) Negative Normal Negativemg/ d L [facility] UA Auto SS Clarity (U) Turbid *ABN* (08/31/24 10:19 AM) Invalid Interpretation Code Clear [facility] UA Auto SS Color (U) Light-Brown 1 *ABN* (08/31/24 10:19 AM) Invalid Interpretation Code Yellow [facility] UA Auto SS Comment on above: Interpretive Data: M icroscopic readings are only performed on those samples that meet specific criteria set forth by [facility]. Epithelial cells.squamous Auto (Urine sed) [#/Area] 0-2 graded/HPF Invalid Interpretation Code [facility] UA Auto SS Glucose Ql (U) Negative Normal Negativemg/d L [facility] UA Auto SS Hemoglobin Auto test strip (U) [Mass/Vol] 3+ mg/dL Invalid Interpretation Code Negativemg/d L [facility] UA Auto SS Ketones Auto test strip Ql (U) Negative Normal Negativemg/d L [facility] UA Auto SS Leukocyte clumps Auto (Urine sed) [#/Area] 4-10 graded/HPF Invalid Interpretation Code [facility] UA Auto SS Leukocyte esterase Auto test strip Ql (U) 500 Carmela/uL Carmela/uL Invalid Interpretation Code NegativeLeu/ uL [facility] UA Auto SS Mucus Auto Ql (U) Negative Normal Negativegr ad ed/LPF [facility] UA Auto SS Nitrite Auto test strip Ql (U) Negative Normal Negativemg/d L [facility] UA Auto SS pH (U) 8.0 *NA* (08/31/24 10:19 AM) Invalid Interpretation Code 5.0 - 9.0 [facility] UA Auto SS Protein Ql (U) 1+ mg/dL Invalid Interpretation Code Negativemg/d L [facility] UA Auto SS RBC Ql (U) 31-75 graded/HPF Invalid Interpretation Code 0-3graded/HP F [facility] UA Auto SS Specific gravity (U) [Rel density] 1.006 *NA* (08/31/24 10:19 AM) Invalid Interpretation Code 1.005 - 1.030 [facility] UA Auto SS Urobilinogen (U) [Mass/Vol] Negative Normal Negativemg/d L [facility] UA Auto SS WBC Auto (Urine sed) [#/Area] >75 graded/HPF Invalid Interpretation Code 0-5graded/HP F [facility] UA Auto SS URINALYSISOrdered By: Estela Grey on 08-31-2024 UA Spec Desc Clean Catch (08/31/24 10:19 AM) Normal [facility] UA Auto SS eGFRon 08-31-2024 eGFR 112 mL/min/1.73 m2 Normal >=59 [facility] Comment on above: Performed By: #### 1 [id number] #### [facility] [address] [place] [address] T3 Freeon 08-26-2024 Free T3 [Mass/Vol] 3.1 pg/mL Invalid Interpretation Code 2.0-4.4 [facility] Comment on above: Result Comment: Perf ormed at: [facility] [address] [id number] PhD Brian Arthur Performed By: #### 2 [id number] #### [facility] [address] [place] [address] CHEMISTRYOrdered By: SYSTEM SYSTEM on 08-25-2024 25-hydroxyvitamin D3 [Mass/Vol] 22.9 ng/mL Low 30.0 - 100.0 ng/mL Remisol Chem Free T4 [Mass/Vol] 0.88 ng/dL Normal 0.58 - 1. 64 ng/dL Remisol Chem TSH Qn 2.59 m[IU]/L Normal 0.34 - 5.60 mcIU/mL Remisol Chem Free T4on 08-25-2024 Free T4 [Mass/Vol] 0.88 ng/dL Normal 0.58-1.64 [facility] Comment on above: Performed By: #### 2 [id number] #### [facility] [address] [place] [address] TSHon 08-25-2024 TSH Qn 2.59 m[IU]/L Normal 0.34-5.60 [facility] Comment on above: Performed By: #### 2 [id number] #### [facility] [address] [place] [address] Vitamin D 25 Hydroxyon 08-25 Vitamin D 25 Hydroxy 22.9 ng/mL Low 30.0-100.0 [facility] Comment on above: Performed By: #### 5 [id number] #### [facility] [address] [place] [address] MA Mamm Diag w/CAD if perf a nd 3D Bilon 08-12-2024 MA Mamm Diag w/CAD if perf and 3D Jim Exam Date/Time: 08/12/2024 09:37 EDT Reason for Exam: N63.0;Mass Report IMPRESSION: BIRADS 1 NEGATIVE, NORMAL INTERVAL FOLLOW-UP Follow-up: 12 MONTH RECALL Category C - The breasts are heterogeneously dense, which may obscure small masses. EXAM: MA Mamm Diag w/CAD if perf and 3D Jim, US Breast Unilateral Rt Complete DATE: 08/12/2024 9:10 AM CLINICAL HISTORY: Mass, N63.0. COMPARISONS: None available. TECHNIQUE: Routine full-field 2D digital mammograms and 3D breast tomosynthesis were obtained of both breasts. Ultrasound was performed at all clock face positions and in the central/retroareolar region of the right breast. FINDINGS: There are no dominant masses, suspicious microcalcifications, or areas of architectural distortion identified on this baseline study. On ultrasound, there are no suspicious masses, cysts, dilated ducts, or pathologically enlarged lymph nodes identified. Dense Breast: Yes. CAD analysis was performed and used in the interpretation. Board Certified Radiologists. Accredited by the ACR and FDA. MAMMOGRAPHY IS VERY IMPORTANT TO YOUR HEALTH. THE CURRENT [employer] GUIDELINES RECOMMENDS ANNUAL MAMMOGRAPHY BEGINNING AT AGE 40. THIS FACILITY UTILIZES A REMINDER SYSTEM TO ENSURE ALL PATIENTS RECEIVE REMINDER NOTIFICATIONS AT THE APPROPRIATE TIME BASED ON THE RECOMMENDATIONS OF THIS EXAM. Report Ordering Provider: Uri Gibbs FINAL REPORT Dictated: 08/12/2024 4:18 pm Henry Duarte MD Signed (Electronic Signature): 08/12/2024 4:18 pm Signed by: Henry Duarte MD Transcribed by: TRAY Technologist: AZRA Assessment: BI-RADS Category 1-Negative Recommendation: Normal interval follow-up Normal [facility] US Breast Unilateral Rt Comp leteon 08-12-2024 US Breast Unilateral Rt Complete Exam Date/Time: 08/12/2024 10:20 EDT Reason for Exam: N63.0 Report PLEASE SEE MA Mamm Diag w/CAD if perf and 3D Jim REPORT DATED: 08/12/2024. Ordering Provider: Ross, Uri FINAL REPORT Dictated: 08/12/2024 4:18 pm Henry Duarte MD Signed (Electronic Signature): 08/12/2024 4:18 pm Signed by: Henry Duarte MD Transcribed by: TRAY Technologist: Serene SPARKS [facility] C Urineon 02-25-2024 Bacteria identified Cx Nom (U) Microbiology PROCEDURE: Urine Culture [R1] SOURCE: U CleanCatch BODY SITE: COLLECTED DATE/TIME: 02/22/2024 12:42 EST RECEIVED DATE/TIME: 02/23/2024 12:10 EST START DATE/TIME: 02/23/2024 12:10 EST FREE TEXT SOURCE: Kermit TORRES, Joo Lentz. Kermit TORRES, Joo Lentz. FINAL REPORTS Final Report [] Verified Date/Time: 02/25/2024 09:39 EST No growth at 2 days. Performing Locations R1: This test was performed at: [facility], [address] [place] [address], [id number] , , [facility] Comment on above: Performed By: #### 2 [id number] #### [facility] [address] [place] [address] BMPon 02-23-2024 Anion gap [Moles/Vol] 10 mmol/L Normal 6-16 [facility] Comment on above: Performed By: #### 2 [id number] #### [facility] [address] [place] [address] Calcium [Mass/Vol] 8.5 mg/dL Low 8.9-11.1 [facility] Comment on above: Performed By: #### 2 [id number] #### [facility] [address] [place] [address] Chloride [Moles/Vol] 105 mmol/L Normal 101-111 [facility] Comment on above: Performed By: #### 2 [id number] #### [facility] [address] [place] [address] CO2 [Moles/Vol] 26 mmol/L Normal 21-31 [facility] Comment on above: Performed By: #### 2 [id number] #### [facility] [address] [place] [address] Creatinine [Mass/Vol] 0.7 mg/dL Normal 0.5-1.3 [facility] Comment on above: Performed By: #### 2 [id number] #### [facility] [address] [place] [address] Glucose [Mass/Vol] 110 mg/dL Normal 55-199 [facility] Comment on above: Performed By: #### 2 [id number] #### [facility] [address] [place] [address] Potassium [Moles/Vol] 4.0 mmol/L Normal 3.5-5.3 [facility] Comment on above: Performed By: #### 2 [id number] #### [facility] [address] [place] [address] Sodium [Moles/Vol] 137 mmol/L Normal 135-145 [facility] Comment on above: Performed By: #### 2 [id number] #### [facility] [address] [place] [address] Urea nitrogen [Mass/Vol] 14 mg/dL Normal 5-21 [facility] Comment on above: Performed By: #### 2 [id number] #### [facility] [address] [place] [address] Urea nitrogen/Creatinine [Mass ratio] 20 No Units Normal 10-20 [facility] Comment on above: Performed By: #### 2 [id number] #### [facility] [address] [place] [address] CBC w/ Auto Diffon 4 Basophils/100 WBC (Bld) 0.8 % Normal 0.0-2.0 [facility] Comment on above: Performed By: #### 2 [id number] #### [facility] [address] [place] [address] Basophils/Leukocytes Auto (Bld) [Pure # fraction] 0.0 E9/L Normal 0.0-0.2 [facility] Comment on above: Performed By: #### 2 [id number] #### [facility] [address] [place] [address] Eosinophils (Bld) [#/Vol] 0.1 E9/L Normal 0.0-0.5 [facility] Comment on above: Performed By: #### 2 [id number] #### [facility] [address] [place] [address] Eosinophils/100 WBC (Bld) 1.6 % Normal 0.0-8.0 [facility] Comment on above: Performed By: #### 2 [id number] #### [facility] [address] [place] [address] Erythrocyte distribution width (RBC) [Ratio] 12.4 % Normal 10.9-14.2 [facility] Comment on above: Performed By: #### 2 [id number] #### [facility] [address] [place] [address] Hematocrit (Bld) [Volume fraction] 39.6 % Normal 34.0-46.0 [facility] Comment on above: Performed By: #### 2 [id number] #### [facility] [address] [place] [address] Hemoglobin (Bld) [Mass/Vol] 13.6 g/dL Normal 12.0-16.0 [facility] Comment on above: Performed By: #### 2 [id number] #### [facility] [address] [place] [address] Lymphocytes (Bld) [#/Vol] 1.2 E9/L Normal 1.0-4.0 [facility] Comment on above: Performed By: #### 2 [id number] #### [facility] [address] [place] [address] Lymphocytes/100 WBC (Bld) 29.0 % Normal 14.0-50.0 [facility] Comment on above: Performed By: #### 2 [id number] #### [facility] [address] [place] [address] MCH (RBC) [Entitic mass] 30.3 pg Normal 27.0-34.0 [facility] Comment on above: Performed By: #### 2 [id number] #### [facility] [address] [place] [address] MCHC (RBC) [Mass/Vol] 34.4 g/dL Normal 31.4-36.0 [facility] Comment on above: Performed By: #### 2 [id number] #### [facility] [address] [place] [address] MCV (RBC) [Entitic vol] 87.9 fL Normal 80.0-100.0 [facility] Comment on above: Performed By: #### 2 [id number] #### [facility] [address] [place] [address] Monocytes (Bld) [#/Vol] 0.3 E9/L Normal 0.2-1.0 [facility] Comment on above: Performed By: #### 2 [id number] #### [facility] [address] [place] [address] Neutrophils (Bld) [#/Vol] 2.6 E9/L Normal 2.0-7.5 [facility] Comment on above: Performed By: #### 2 [id number] #### [facility] [address] [place] [address] Neutrophils/100 WBC (Bld) 62.1 % Normal 36.0-75.0 [facility] Comment on above: Performed By: #### 2 [id number] #### [facility] [address] [place] [address] Platelet mean volume (Bld) [Entitic vol] 8.2 fL Normal 6.4-10.8 [facility] Comment on above: Performed By: #### 2 [id number] #### [facility] [address] [place] [address] Platelets (Bld) [#/Vol] 199.0 E9/L Normal 150.0-500.0 [facility] Comment on above: Performed By: #### 2 [id number] #### [facility] [address] [place] [address] RBC (Bld) [#/Vol] 4.5 E12/L Normal 4.3-5.9 [facility] Comment on above: Performed By: #### 2 [id number] #### [facility] [address] [place] [address] WBC corrected for nucl RBC Auto (Bld) [#/Vol] 4.1 E9/L Normal 4.0-11.0 [facility] Comment on above: Performed By: #### 2 [id number] #### [facility] [address] [place] [address] CHEMISTRYOrdered By: SYSTEM SYSTEM on 02-23-2024 Anion gap [Moles/Vol] 10 mmol/L Normal 6 - 16 mEq/L R emisol Chem Calcium [Mass/Vol] 8.5 mg/dL Low 8.9 - 11. 1 mg/dL Remisol Chem Chloride [Moles/Vol] 105 mmol/L Normal 101 - 1 11 mmol/L Remisol Chem CO2 [Moles/Vol] 26 mmol/L Normal 21 - 31 mmol/L Remisol Chem Creatinine [Mass/Vol] 0.7 mg/dL Normal 0.5 - 1.3 mg/dL Remisol Chem eGFR 112 mL/min/1.73 m2 Normal >=59mL/mi n/1 .73 m2 Remisol Chem Glucose [Mass/Vol] 110 mg/dL Normal 55 - 199 mg/dL Remisol Chem Potassium [Moles/Vol] 4.0 mmol/L Normal 3.5 - 5.3 mmol/L Remisol Chem Sodium [Moles/Vol] 137 mmol/L Normal 135 - 145 mmol/L Rem[facility] Chem Urea nitrogen [Mass/Vol] 14 mg/dL Normal 5 - 21 mg/dL [facility] Chem Urea nitrogen/Creatinine [Mass ratio] 20 mg/mg Normal 10 - 20 Remisol Chem HEMATOLOGYOrdered By: SYSTEM SYSTEM on 02-23-2024 Basophils/100 WBC (Bld) 0.8 % Normal 0.0 - 2.0 % Remisol Heme Basophils/Leukocytes Auto (Bld) [Pure # fraction] 0.0 E9/L Normal 0.0 - 0.2 E9/L Rem[facility] Heme Eosinophils (Bld) [#/Vol] 0.1 E9/L Normal 0.0 - 0.5 E9/L [facility] Heme Eosinophils/100 WBC (Bld) 1.6 % Normal 0.0 - 8.0 % Remisol Heme Erythrocyte distribution width (RBC) [Ratio] 12.4 % Normal 10.9 - 14.2 % Rem[facility] Heme Hematocrit (Bld) [Volume fraction] 39.6 % Normal 34.0 - 46.0 % Rem[facility] Heme Hemoglobin (Bld) [Mass/Vol] 13.6 g/dL Normal 12.0 - 16.0 gm/dL [facility] Heme Lymphocytes (Bld) [#/Vol] 1.2 E9/L Normal 1.0 - 4.0 E9/L [facility] Heme Lymphocytes/100 WBC (Bld) 29.0 % Normal 14.0 - 50.0 % Remisol Heme MCH (RBC) [Entitic mass] 30.3 pg Normal 27.0 - 34.0 pg Remisol Heme MCHC (RBC) [Mass/Vol] 34.4 g/dL Normal 31.4 - 36.0 gm/dL Remisol Heme MCV (RBC) [Entitic vol] 87.9 fL Normal 80.0 - 100.0 fL Rem[facility] Heme Monocytes (Bld) [#/Vol] 0.3 E9/L Normal 0.2 - 1.0 E9/L Rem[facility] Heme Monocytes/100 WBC (Bld) 6.5 % Normal 4.0 - 14.0 % Rem[facility] Heme Neutrophils (Bld) [#/Vol] 2.6 E9/L Normal 2.0 - 7.5 E9/L [facility] Heme Neutrophils/100 WBC (Bld) 62.1 % Normal 36.0 - 75.0 % [facility] Heme Platelet mean volume (Bld) [Entitic vol] 8.2 fL Normal 6.4 - 10.8 fL [facility] Heme Platelets (Bld) [#/Vol] 199.0 E9/L Normal 150.0 - 500.0 E9/L [facility] Heme RBC (Bld) [#/Vol] 4.5 E12/L Normal 4.3 - 5.9 E12/L [facility] Heme WBC corrected for nucl RBC Auto (Bld) [#/Vol] 4.1 E9/L Normal 4.0 - 11.0 E9/L Remisol Heme eGFRon 02-23-2024 eGFR 112 mL/min/1.73 m2 Normal >=59 [facility] Comment on above: Performed By: #### 1 [id number] #### [facility] [address] [address] Ambulatory Visit Summaryon 04-23-2023 Ambulatory Visit Summary Ambulatory Visit Summary JYOTI PARKS :1985 Visit Date:02/22/2024 Ambulatory Visit Instructions Your Diagnosis Low back pain Your Care Team Attending Physician - Joo Carmen PA-C Primary Care Physician - Uri Gibbs MD This Is Your Medications List Contact prescribing physician if questions or concerns ciprofloxacin (Cipro 500 mg Tab) levothyroxine (levothyroxine 50 mcg (0.05 mg) Tab) rimegepant (Nurtec ODT 75 mg oral tablet, disintegrating) tizanidine (tiZANidine 4 mg Tab) Procedures Performed Salpingectomy, Tonsillectomy. Discharge Vitals Temperature (Tympanic) 37.7 ???C Heart Rate (Peripheral) 71 Blood Pressure 110/68 Height 157 cm Height 62 in Weight 53.8 kg Weight 118.609 lb BMI 21.83 What to do next You Need to Schedule the Following Appointments Follow Up with Eric JUAREZ, Uri Leung, [facility], [facility] When: You Need to Complete the Following Basic Metabolic Panel, Blood, Routine collect, 02/22/24, Order for future visit, Lab Collect, Low back pain, Print Label By Order Location CBC w/ Auto Diff, Blood, Routine collect, 02/22/24, Order for future visit, Lab Collect, Low back pain, Print Label By Order Location Medications What How Much When Instructions Unchanged ciprofloxacin (Cipro 500 mg Tab) 1 Tablets By Mouth Every 12 hours Duration: 7 Days Contact prescribing physician if questions or concerns Unchanged levothyroxine (levothyroxine 50 mcg (0.05 mg) Tab) 30 EA, TAKE 1 TABLET BY MOUTH EVERY DAY IN THE MORNING ON EMPTY STOMACH Contact prescribing physician if questions or concerns Unchanged rimegepant (Nurtec ODT 75 mg oral tablet, disintegrating) See instructions PLACE ONE TABLET BY MOUTH EVERY DAY NEEDED FOR MIGRAINE Contact prescribing physician if questions or concerns Unchanged tizanidine (tiZANidine 4 mg Tab) 1 Tablets By Mouth Every day Contact prescribing physician if questions or concerns Allergies Qulipta (Swollen face) Azithromycin 5 Day Dose Pack (Rash) Helen 24 Hour Allergy (Menorrhagia) Augmentin (Dizziness) Biaxin (Dizzy) Eggs (Unknown) Restasis (Vision disorder) Vicodin (Nausea and vomiting) sulfa drugs (Headache) Problems Ongoing - Any problem that you are currently receiving treatment for. BMI 21.0-21.9, adult Hypothyroidism Migraines Patient Survey You may receive a survey via text or e-mail asking about your office visit. Please share your experience with us by completing your survey. We appreciate your feedback and thank you for choosing us for your care. Education Materials Acute Back Pain, Adult Acute back pain is sudden and usually short-lived. It is often caused by an injury to the muscles and tissues in the back. The injury may result from: ??? A muscle, tendon, or ligament getting overstretched or torn. Ligaments are tissues that connect bones to each other. Lifting something improperly can cause a back strain. ??? Wear and tear (degeneration) of the spinal disks. Spinal disks are circular tissue that provide cushioning between the bones of the spine (vertebrae). ??? Twisting motions, such as while playing sports or doing yard work. ??? A hit to the back. ??? Arthritis. You may have a physical exam, lab tests, and imaging tests to find the cause of your pain. Acute back pain usually goes away with rest and home care. Follow these instructions at home: Managing pain, stiffness, and swelling ??? Take bjhs-vxl-[id number] and prescription medicines only as told by your health care provider. Treatment may include medicines for pain and inflammation that are taken by mouth or applied to the skin, or muscle relaxants. ??? Your health care provider may recommend applying ice during the first 24???48 hours after your pain starts. To do this: ? Put ice in a plastic bag. ? Place a towel between your skin and the bag. ? Leave the ice on for 20 minutes, 2???3 times a day. ? Remove the ice if your skin turns bright red. This is very important. If you cannot feel pain, heat, or cold, you have a greater risk of damage to the area. ??? If directed, apply heat to the affected area as often as told by your health care provider. Use the heat source that your health care provider recommends, such as a moist heat pack or a heating pad. ? Place a towel between your skin and the heat source. ? Leave the heat on for 20???30 minutes. ? Remove the heat if your skin turns bright red. This is especially important if you are unable to feel pain, heat, or cold. You have a greater risk of getting burned. Activity ??? Do not stay in bed. Staying in bed for more than 1???2 days can delay your recovery. ??? Sit up and stand up straight. Avoid leaning forward when you sit or hunching over when you stand. ? If you work at a desk, sit close to it so you do not need to lean over. Keep your chin tucked in. Keep your neck drawn back, a (more content not included)... Normal [facility] Family Medicine Office/Clini c Noteon 02-22-2024 Family Medicine Office/Clinic Note Family Medicine Office/Clinic Note Chief Complaint low back pain HPI Staff 38 year old female presents with low back pain since pt was seen at PCP's office for possible UTI on 02/15, started cipro on 02/16 did UA, culture and blood work pt still currently on cipro History of Present Illness I have reviewed and verified the staff HPI to be accurate for this encounter. Portions of this record have been created with voice recognition software. Occasional wrong-word or ???[id number]??? substitutions may have occurred due to the inherent limitations of voice recognition software. 38 yo female presents today with cc of low back pain since x 3 days duration. Pt was seen in PCP office for possible UTI on 02/15, started cipro on 02/16. Pt states at that time, they did a UA, culture, and blood work. Pt states she is still currently taking the cipro. Patient states at that time of her visit she does not have the right lower back pain. States that that started about 3 days later on denies any heavy lifting falls trauma or injuries. She denies any significant history of UTIs states she is only had about 3 and her entire life. She denies any fever or chills. She does state nausea. Denies vomiting. Denies any abdominal pain history of kidney stones. Does states she had hematuria at the time of her PCP visit. States that the hematuria her dysuria and bladder pressure has subsided. Concern for possible kidney infection. States she also had basic labs completed that time which came back within normal limits. States she has been checking her temperature constantly but again denies fever but states she has felt cold but again the temperatures obtained outside. Denies any history of pyelonephritis or kidney infections. Patient states history of right fallopian tube removal denies any other abdominal surgeries. Denies any concerns for . She has no other concerns at this time. Has been using a heating pad at home which is about the only thing that seems to help. Review of Systems PHQ Score Initial Depression Screen Score: 0 SCORE ROS negative unless otherwise stated in HPI. Physical Exam Vitals & Measurements T: 37.7 ???C(Tympanic) HR: 71(Peripheral) BP: 110/68 SpO2: 100% HT: 62 in HT: 157 cm WT: 53.8 kg WT: 118.609 lb BMI: 21.83 General: Well developed, well nourished, in no acute distress Eyes: not assessed Ears: not assessed Nose: not addressed Mouth: not assessed Neck: Normal alignment of the cervical spine. Normal range of motion of the neck. No localized cervical spine or paraspinal tenderness. No focal deficits. Lungs: Lung sounds are clear bilaterally. No wheezing rhonchi or crackles on exam. Cardio: S1, S2, regular rhythm. No murmurs gallops or rubs. Abdomen: Bowel sounds are present x 4 quadrants. Abdomen is soft, nontender, nondistended. No rigidity rebound or guarding on exam. Musculoskeletal: Normal alignment of spinal column. No localized thoracic or lumbar spine tenderness no paraspinal tenderness. No CVA tenderness. Patient has discomfort with palpation over the right lower back region which seems to be musculoskeletal in nature patient states with palpation the right lower back feels sore. States it also feels deeper. Denies any SI joint tenderness. Pain in the lower back does not radiate. No focal deficits. Extremity: Normal range of motion of all 4 extremities Neurologic: not assessed Skin: not assessed Mental Status: Alert and oriented x3. Normal mood and affect Assessment/Plan I spoke with patient regards to repeat urine dip and urine culture. Urine dip and urine culture both negative will discuss in regards to repeat labs to check white blood cell count and kidney function if patient is in agreement. Otherwise discussed if she were to develop fever or chills vomiting with nausea worsening right lower back pain she should seek ER for reevaluation to rule out Leoncio. Discussed that typically ciprofloxacin is a very good antibiotic she has about a day and a half left of that antibiotic. States typically covers Leoncio very well. However every patient is different. Patient is understanding and in agreement. I did go over urine culture which grew a small amount of E. coli. Discussed that her susceptibility results were also very good. Urine notes trace blood negative leukocyte negative nitrite. Will send for culture to confirm negative for bacterial growth. I updated patient regards to urine dip in office today. I did offer a change in antibiotic, given her complaint of right lower back pain. I did also offer repeat labs. At this time patient will continue Cipro last day of antibiotic is tomorrow. I will obtain basic labs including CBC and BMP to recheck lab values. Patient understands from convening care I will not have these lab results until tomorrow morning. If she develops fever or increase in right lower back pain vomiting with nausea she should seek ER for reevaluation which patient agrees and underst (more content not included)... Normal [facility] Comment on above: Result Comment: Elec tronically Signed By: Kermit TORRES, Joo Epps\.br\Date and Time Signed: 02/22/24 12:56 EST C Urineon 02-18-2024 Bacteria identified Cx Nom (U) Microbiology PROCEDURE: Urine Culture [R1] SOURCE: U CleanCatch BODY SITE: COLLECTED DATE/TIME: 02/16/2024 12:22 EST RECEIVED DATE/TIME: 02/16/2024 13:17 EST START DATE/TIME: 02/16/2024 13:17 EST FREE TEXT SOURCE: Eric JUAREZ, Uri Gibbs MD, Uri Leung FINAL REPORTS Final Report [] Verified Date/Time: 02/18/2024 08:35 EST 10,000 cfu/ml Escherichia coli SUSCEPTIBILITY RESULTS LEGEND: S=Susceptible, N/R=Not Reported, Blank=Data not available, or drug not advisable or tested, I=Intermediate, ESBL=Extended spectrum beta-lactamase, R=Resistant, TFG=Thymidine-depend ent strain, SHARLA=Beta-lactamase positive, TALIA=mcg/m;(mg/L), S*=Predicted susceptible interp, R*=Predicted resistant interp EC Antibiotic TALIA Dilutn TALIA Interp Ampicillin <=8 S Ampicillin/ <=8/4 S Sulbactam Aztreonam <=4 S Cefazolin <=2 S Cefepime <=2 S Ceftazidime <=1 S Ceftazidime/ <=8 S Avibactam Ceftriaxone <=1 S Cefuroxime <=4 S Ciprofloxacin <=0.25 S Ertapenem <=0.5 S Gentamicin <=2 S Levofloxacin <=0.5 S Meropenem <=1 S Nitrofurantoin <=32 S Piperacillin/ <=8 S Tazobactam Tetracycline <=4 S Tobramycin <=2 S Trimethoprim/ <=2/38 S Sulfa Performing Locations R1: This test was performed at: [facility], [address] [place] [address], [address] , , [facility] Comment on above: Performed By: #### 2 [id number] #### [facility] [address] [place] [address] UA with Cult Rflxon 02-16-20 24 Bacteria Auto Ql (U) Trace Normal Trace Fish er [facility] Comment on above: Performed By: #### 4 [id number] #### [facility] [address] [place] [address] Bilirubin Ql (U) Negative Normal Negative [facility] Comment on above: Performed By: #### 4 [id number] #### [facility] [address] [place] [address] Clarity (U) Clear Normal Clear [facility] Comment on above: Performed By: #### 4 [id number] #### [facility] [address] [place] [address] Color (U) Colorless Abnormal Yellow [facility] Comment on above: Result Comment: Micr oscopic readings are only performed on those samples that meet specific criteria set forth by [facility]. Performed By: #### 4 [id number] #### [facility] [address] [place] [address] Epithelial cells.squamous Auto (Urine sed) [#/Area] 0-2 Invalid Interpretation Code [facility] Comment on above: Performed By: #### 4 [id number] #### [facility] [address] [place] [address] Glucose Ql (U) Negative Normal Negative [facility] Comment on above: Performed By: #### 4 [id number] #### [facility] [address] [place] [address] Hemoglobin Auto test strip (U) [Mass/Vol] 2+ mg/dL Abnormal Negative [facility] Comment on above: Performed By: #### 4 [id number] #### [facility] [address] [place] [address] Ketones Auto test strip Ql (U) Negative Normal Negative [facility] Comment on above: Performed By: #### 4 [id number] #### [facility] [address] [place] [address] Leukocyte esterase Auto test strip Ql (U) 250 Carmela/uL Abnormal Negative [facility] Comment on above: Performed By: #### 4 [id number] #### [facility] [address] [place] [address] Mucus Auto Ql (U) Negative Normal Negative [facility] Comment on above: Performed By: #### 4 [id number] #### [facility] [address] [place] [address] Nitrite Auto test strip Ql (U) Negative Normal Negative [facility] Comment on above: Performed By: #### 4 [id number] #### [facility] [address] [place] [address] pH (U) 7.0 [pH] Invalid Interpretation Code 5.0-9.0 [facility] Comment on above: Performed By: #### 4 [id number] #### [facility] [address] [place] [address] Protein Ql (U) Negative Normal Negative [facility] Comment on above: Performed By: #### 4 [id number] #### [facility] [address] [place] [address] RBC Ql (U) 4-20 Abnormal 0-3 [facility] Comment on above: Performed By: #### 4 [id number] #### [facility] [address] [place] [address] Specific gravity (U) [Rel density] 1.005 Invalid Interpretation Code 1.005-1.030 [facility] Comment on above: Performed By: #### 4 [id number] #### [facility] [address] [place] [address] Urobilinogen (U) [Mass/Vol] Negative Normal Negative [facility] Comment on above: Performed By: #### 4 [id number] #### [facility] [address] [place] [address] WBC Auto (Urine sed) [#/Area] 26-30 Abnormal 0-5 [facility] Comment on above: Performed By: #### 4 [id number] #### [facility] [address] [place] [address] Type of Urine collection method Clean Catch Normal [facility] Comment on above: Performed By: #### 4 [id number] #### [facility] [address] [place] [address] URINALYSISOrdered By: SYSTEM SYSTEM on 02-16-2024 Bacteria Auto Ql (U) Trace /HPF Normal Trace/HPF [facility] UA Auto SS Bilirubin Ql (U) Negative Normal Negativemg/ d L [facility] UA Auto SS Clarity (U) Clear (02/16/24 12:22 PM) Normal Clear [facility] UA Auto SS Color (U) Colorless 1 *ABN* (02/16/24 12:22 PM) Invalid Interpretation Code Yellow [facility] UA Auto SS Comment on above: Interpretive Data: M icroscopic readings are only performed on those samples that meet specific criteria set forth by [facility]. Epithelial cells.squamous Auto (Urine sed) [#/Area] 0-2 graded/HPF Invalid Interpretation Code [facility] UA Auto SS Glucose Ql (U) Negative Normal Negativemg/d L [facility] UA Auto SS Hemoglobin Auto test strip (U) [Mass/Vol] 2+ mg/dL Invalid Interpretation Code Negativemg/d L [facility] UA Auto SS Ketones Auto test strip Ql (U) Negative Normal Negativemg/d L [facility] UA Auto SS Leukocyte esterase Auto test strip Ql (U) 250 Carmela/uL Carmela/uL Invalid Interpretation Code NegativeLeu/ uL [facility] UA Auto SS Mucus Auto Ql (U) Negative Normal Negativegr ad ed/LPF [facility] UA Auto SS Nitrite Auto test strip Ql (U) Negative Normal Negativemg/d L [facility] UA Auto SS pH (U) 7.0 *NA* (02/16/24 12:22 PM) Invalid Interpretation Code 5.0 - 9.0 [facility] UA Auto SS Protein Ql (U) Negative Normal Negativemg/d L [facility] UA Auto SS RBC Ql (U) 4-20 graded/HPF Invalid Interpretation Code 0-3graded/HP F [facility] UA Auto SS Specific gravity (U) [Rel density] 1.005 *NA* (02/16/24 12:22 PM) Invalid Interpretation Code 1.005 - 1.030 [facility] UA Auto SS Urobilinogen (U) [Mass/Vol] Negative Normal Negativemg/d L [facility] UA Auto SS WBC Auto (Urine sed) [#/Area] 26-30 graded/HPF Invalid Interpretation Code 0-5graded/HP F [facility] UA Auto SS URINALYSISOrdered By: Faye Ames on 02-16-2024 UA Spec Desc Clean Catch (02/16/24 12:22 PM) Normal [facility] UA Auto SS Ambulatory Visit Summaryon 0 11-20-2023 Ambulatory Visit Summary Ambulatory Visit Summary JYOTI PARKS :1985 Visit Date:11/20/2023 Ambulatory Visit Instructions Your Diagnosis Physical exam Hypothyroidism Migraines Nonsmoker Your Care Team Attending Physician - Uri Gibbs MD Primary Care Physician - Uri Gibbs MD This Is Your Medications List Contact prescribing physician if questions or concerns levothyroxine (levothyroxine 50 mcg (0.05 mg) Tab) rimegepant (Nurtec ODT 75 mg oral tablet, disintegrating) tizanidine (tiZANidine 4 mg Tab) [Image Removed: STOP]Stop taking these medications rimegepant (Nurtec ODT 75 mg oral tablet, disintegrating) Procedures Performed Salpingectomy, Tonsillectomy. Discharge Vitals Temperature (Oral) 36.9 ?C Heart Rate (Peripheral) 64 Respiratory Rate 16 Blood Pressure 106/68 Height 157.5 cm Height 62 in Weight 53.8 kg Weight 118.36 lb BMI 21.69 Medications What How Much When Instructions Unchanged levothyroxine (levothyroxine 50 mcg (0.05 mg) Tab) 30 EA, TAKE 1 TABLET BY MOUTH EVERY DAY IN THE MORNING ON EMPTY STOMACH Contact prescribing physician if questions or concerns Unchanged rimegepant (Nurtec ODT 75 mg oral tablet, disintegrating) See instructions PLACE ONE TABLET BY MOUTH EVERY DAY NEEDED FOR MIGRAINE Contact prescribing physician if questions or concerns Unchanged tizanidine (tiZANidine 4 mg Tab) 1 Tablets By Mouth Every day Contact prescribing physician if questions or concerns What How Much When Comments Stop Taking rimegepant (Nurtec ODT 75 mg oral tablet, disintegrating) 1 Tablets By Mouth Once Allergies Qulipta (Swollen face) Azithromycin 5 Day Dose Pack (Rash) Helen 24 Hour Allergy (Menorrhagia) Augmentin (Dizziness) Biaxin (Dizzy) Eggs (Unknown) Restasis (Vision disorder) Vicodin (Nausea and vomiting) sulfa drugs (Headache) Problems Ongoing - Any problem that you are currently receiving treatment for. BMI 21.0-21.9, adult Hypothyroidism Migraines Patient Survey You may receive a survey via text or e-mail asking about your office visit. Please share your experience with us by completing your survey. We appreciate your feedback and thank you for choosing us for your care. Normal [facility] CBC w/ Auto Diffon 4 Basophils/100 WBC (Bld) 0.6 % Normal 0.0-2.0 [facility] Comment on above: Performed By: #### 2 [id number] #### [facility] [address] [place] [address] Basophils/Leukocytes Auto (Bld) [Pure # fraction] 0.0 E9/L Normal 0.0-0.2 [facility] Comment on above: Performed By: #### 2 [id number] #### [facility] [address] [place] [address] Eosinophils (Bld) [#/Vol] 0.1 E9/L Normal 0.0-0.5 [facility] Comment on above: Performed By: #### 2 [id number] #### [facility] [address] [place] [address] Eosinophils/100 WBC (Bld) 2.0 % Normal 0.0-8.0 [facility] Comment on above: Performed By: #### 2 [id number] #### [facility] [address] [place] [address] Erythrocyte distribution width (RBC) [Ratio] 12.4 % Normal 10.9-14.2 [facility] Comment on above: Performed By: #### 2 [id number] #### [facility] [address] [place] [address] Hematocrit (Bld) [Volume fraction] 38.6 % Normal 34.0-46.0 [facility] Comment on above: Performed By: #### 2 [id number] #### [facility] [address] [place] [address] Hemoglobin (Bld) [Mass/Vol] 13.3 g/dL Normal 12.0-16.0 [facility] Comment on above: Performed By: #### 2 [id number] #### [facility] [address] [place] [address] Lymphocytes (Bld) [#/Vol] 1.0 E9/L Normal 1.0-4.0 [facility] Comment on above: Performed By: #### 2 [id number] #### [facility] [address] [place] [address] Lymphocytes/100 WBC (Bld) 26.3 % Normal 14.0-50.0 [facility] Comment on above: Performed By: #### 2 [id number] #### [facility] [address] [place] [address] MCH (RBC) [Entitic mass] 30.5 pg Normal 27.0-34.0 [facility] Comment on above: Performed By: #### 2 [id number] #### [facility] [address] [place] [address] MCHC (RBC) [Mass/Vol] 34.5 g/dL Normal 31.4-36.0 [facility] Comment on above: Performed By: #### 2 [id number] #### [facility] [address] [place] [address] MCV (RBC) [Entitic vol] 88.3 fL Normal 80.0-100.0 [facility] Comment on above: Performed By: #### 2 [id number] #### [facility] [address] [place] [address] Monocytes (Bld) [#/Vol] 0.2 E9/L Normal 0.2-1.0 [facility] Comment on above: Performed By: #### 2 [id number] #### [facility] [address] [place] [address] Neutrophils (Bld) [#/Vol] 2.4 E9/L Normal 2.0-7.5 [facility] Comment on above: Performed By: #### 2 [id number] #### [facility] [address] [place] [address] Neutrophils/100 WBC (Bld) 65.1 % Normal 36.0-75.0 [facility] Comment on above: Performed By: #### 2 [id number] #### [facility] [address] [place] [address] Platelet 241.0 E9/L Normal 150.0-500.0 [facility] Comment on above: Performed By: #### 2 [id number] #### [facility] [address] [place] [address] Platelet mean volume (Bld) [Entitic vol] 8.4 fL Normal 6.4-10.8 [facility] Comment on above: Performed By: #### 2 [id number] #### [facility] [address] [place] [address] RBC (Bld) [#/Vol] 4.4 E12/L Normal 4.3-5.9 [facility] Comment on above: Performed By: #### 2 [id number] #### [facility] [address] [place] [address] WBC corrected for nucl RBC Auto (Bld) [#/Vol] 3.7 E9/L Low 4.0-11.0 [facility] Comment on above: Performed By: #### 2 [id number] #### [facility] [address] [place] [address] CHEMISTRYOrdered By: SYSTEM SYSTEM on 11-20-2023 Albumin [Mass/Vol] 4.6 g/dL Normal 3.3 - 5.0 gm/dL [facility] Albumin/Globulin [Mass ratio] 1.8 {ratio} Normal 1.1 - 2.2 [facility] ALP [Catalytic activity/Vol] 49 [iU]/d Normal 21 - 98 Int._Unit/L [facility] ALT No additional P-5'-P [Catalytic activity/Vol] 15 [iU]/d Normal 6 - 46 Int._Unit/L [facility] Anion gap [Moles/Vol] 9 mmol/L Normal 6 - 16 mEq/L R emisol Chem AST [Catalytic activity/Vol] 22 [iU]/d Normal 5 - 43 Int._Unit/L [facility] Bilirubin [Mass/Vol] 0.6 mg/dL Normal 0.0 - 1 .1 mg/dL [facility] Calcium [Mass/Vol] 9.0 mg/dL Normal 8.9 - 11. 1 mg/dL [facility] Chloride [Moles/Vol] 104 mmol/L Normal 101 - 1 11 mmol/L [facility] Cholesterol [Mass/Vol] 170 mg/dL Normal 120 - 200 mg/dL [facility] Cholesterol in HDL [Mass/Vol] 54 mg/dL Invalid Interpretation Code [facility] Comment on above: Result Comment: '>= 60 LOW RISK' '<= 40 HIGH RISK' Cholesterol in LDL [Mass/Vol] 114 mg/dL Normal <=129mg/dL [facility] Cholesterol in VLDL [Mass/Vol] 17 mg/dL Normal 7 - 40 mg/dL [facility] CO2 [Moles/Vol] 29 mmol/L Normal 21 - 31 mmol/L [facility] Creatinine [Mass/Vol] 0.7 mg/dL Normal 0.5 - 1.3 mg/dL [facility] eGFR 113 mL/min/1.73 m2 Normal >=59mL/mi n/1 .73 m2 [facility] Globulin (S) [Mass/Vol] 2.5 g/dL Normal 1.4 - 4.0 gm/dL Remisol Chem Glucose [Mass/Vol] 83 mg/dL Normal 55 - 199 mg/dL Remisol Chem Potassium [Moles/Vol] 3.8 mmol/L Normal 3.5 - 5.3 mmol/L Remisol Chem Protein [Mass/Vol] 7.1 g/dL Normal 6.0 - 7.8 gm/dL Remisol Chem Sodium [Moles/Vol] 138 mmol/L Normal 135 - 145 mmol/L Remisol Chem Triglyceride [Mass/Vol] 85 mg/dL Normal <=149mg/dL Remisol Chem TSH Qn 2.46 m[IU]/L Normal 0.34 - 5.60 mcIU/mL Remisol Chem Urea nitrogen [Mass/Vol] 11 mg/dL Normal 5 - 21 mg/dL Remisol Chem Urea nitrogen/Creatinine [Mass ratio] 16 mg/mg Normal 10 - 20 Remisol Chem CMPon 11-20-2023 Albumin [Mass/Vol] 4.6 g/dL Normal 3.3-5.0 [facility] Comment on above: Performed By: #### 2 [id number] #### [facility] [address] [place] [address] Albumin/Globulin (S) [Mass conc ratio] 1.8 Normal 1.1-2.2 [facility] Comment on above: Performed By: #### 2 [id number] #### [facility] [address] [place] [address] ALP [Catalytic activity/Vol] 49 Int._Unit/L Normal 21-98 [facility] Comment on above: Performed By: #### 2 [id number] #### [facility] [address] [place] [address] ALT No additional P-5'-P [Catalytic activity/Vol] 15 Int._Unit/L Normal 6-46 [facility] Comment on above: Performed By: #### 2 [id number] #### [facility] [address] [place] [address] Anion gap [Moles/Vol] 9 mmol/L Normal 6-16 [facility] Comment on above: Performed By: #### 2 [id number] #### [facility] [address] [place] [address] AST [Catalytic activity/Vol] 22 Int._Unit/L Normal 5-43 [facility] Comment on above: Performed By: #### 2 [id number] #### [facility] [address] [place] [address] Bilirubin [Mass/Vol] 0.6 mg/dL Normal 0.0-1.1 [facility] Comment on above: Performed By: #### 2 [id number] #### [facility] [address] [place] [address] Calcium [Mass/Vol] 9.0 mg/dL Normal 8.9-11.1 [facility] Comment on above: Performed By: #### 2 [id number] #### [facility] [address] [place] [address] Chloride [Moles/Vol] 104 mmol/L Normal 101-111 [facility] Comment on above: Performed By: #### 2 [id number] #### [facility] [address] [place] [address] CO2 [Moles/Vol] 29 mmol/L Normal 21-31 [facility] Comment on above: Performed By: #### 2 [id number] #### [facility] [address] [place] [address] Creatinine [Mass/Vol] 0.7 mg/dL Normal 0.5-1.3 [facility] Comment on above: Performed By: #### 2 [id number] #### [facility] [address] [place] [address] Globulin (S) [Mass/Vol] 2.5 g/dL Normal 1.4-4.0 [facility] Comment on above: Performed By: #### 2 [id number] #### [facility] [address] [place] [address] Glucose [Mass/Vol] 83 mg/dL Normal 55-199 [facility] Comment on above: Performed By: #### 2 [id number] #### [facility] [address] [place] [address] Potassium [Moles/Vol] 3.8 mmol/L Normal 3.5-5.3 [facility] Comment on above: Performed By: #### 2 [id number] #### [facility] [address] [place] [address] Protein [Mass/Vol] 7.1 g/dL Normal 6.0-7.8 [facility] Comment on above: Performed By: #### 2 [id number] #### [facility] [address] [place] [address] Sodium [Moles/Vol] 138 mmol/L Normal 135-145 [facility] Comment on above: Performed By: #### 2 [id number] #### [facility] [address] [place] [address] Urea nitrogen [Mass/Vol] 11 mg/dL Normal 5-21 [facility] Comment on above: Performed By: #### 2 [id number] #### [facility] [address] [place] [address] Urea nitrogen/Creatinine [Mass ratio] 16 No Units Normal 10-20 [facility] Comment on above: Performed By: #### 2 [id number] #### [facility] [address] [place] [address] Family Medicine Office/Clini c Noteon 11-20-2023 Family Medicine Office/Clinic Note Family Medicine Office/Clinic Note HPI Staff Jyoti is a 38 year old female presenting for wellness PE and labs ([facility]) Health Maintenance: Colonoscopy: none Dexa: none Mammo: none Pap: UTD Last Labs: year ago History of Present Illness - Pt here for CPE - Has been having times where her periods are not regular. - Concern for perimenopause - NO other issues. Review of Systems PHQ Score Initial Depression Screen Score: 0 SCORE Physical Exam Vitals & Measurements T: 36.9 ?C(Oral) HR: 64(Peripheral) RR: 16 BP: 106/68 SpO2: 97% HT: 62 in HT: 157.5 cm WT: 53.8 kg WT: 118.36 lb BMI: 21.69 General: alert, no acute distress ENMT: oral mucosa moist, Cardiovascular: regular rate and rhythm, normal peripheral perfusion Respiratory: Lungs CTA, respirations non labored Extremities: no deformity, no trauma Neurological: oriented x 4, LOC appropriate for age, CN II-XII intact, motor strength equal & normal bilaterally, speech normal Abdomen: Soft, Nontender, Non-distended, + BS Assessment/Plan 1. Physical exam (Z00.00: Encounter for general adult medical examination without abnormal findings) Anticipatory guidance given. Discussed diet and exercise. Discussed immunizations. Ordered: CBC w/ Auto Diff Comprehensive Metabolic Panel Est Preventative 18 to 39 years [address] Lipid Panel TSH With T4fr Reflex 2. Hypothyroidism (E03.9: Hypothyroidism, unspecified) Will check labs today Ordered: CBC w/ Auto Diff Comprehensive Metabolic Panel Est Preventative 18 to 39 years [address] Lipid Panel TSH With T4fr Reflex 3. Migraines (G43.909: Migraine, unspecified, not intractable, without status migrainosus) Better controlled at this time with the muscle relaxer - Continue to monitor Ordered: CBC w/ Auto Diff Comprehensive Metabolic Panel Est Preventative 18 to 39 years [address] Lipid Panel TSH With T4fr Reflex 4. Nonsmoker (Z78.9: Other specified health status) - Please continue to not smoke Ordered: CBC w/ Auto Diff Comprehensive Metabolic Panel Est Preventative 18 to 39 years [address] Lipid Panel TSH With T4fr Reflex - Pt had a pap with OBGYN. Follow-up No qualifying data available Problem List/Past Medical History Ongoing BMI 21.0-21.9, adult Hypothyroidism Migraines Historical No qualifying data Procedure/Surgical History Salpingectomy, Tonsillectomy. Medications levothyroxine 50 mcg (0.05 mg) Tab Nurtec ODT 75 mg oral tablet, disintegrating, See Instructions tiZANidine 4 mg Tab, 4 mg= 1 tab(s), Oral, Daily Allergies Qulipta (Swollen face) Azithromycin 5 Day Dose Pack (Rash) Helen 24 Hour Allergy (Menorrhagia) Augmentin (Dizziness) Biaxin (Dizzy) Eggs (Unknown) Restasis (Vision disorder) Vicodin (Nausea and vomiting) sulfa drugs (Headache) Social History Tobacco Never (less than 100 in lifetime) Tobacco Use:. Never Smokeless Tobacco Use:. Household tobacco concerns: No., 11/20/2023 Family History Acute myocardial infarction: Father. Diabetes mellitus type 1: Grandparent. Immunizations Vaccine Date Status Comments influenza virus vaccine, inactivated - Not Given Patient Refuses Normal [facility] Comment on above: Result Comment: Elec tronically Signed By: Eric JUAREZ, Uri Jean.jaclyn\Date and Time Signed: 11/20/23 08:54 EDT HEMATOLOGYOrdered By: SYSTEM SYSTEM on 11-20-2023 Basophils/100 WBC (Bld) 0.6 % Normal 0.0 - 2.0 % Remisol Heme Basophils/Leukocytes Auto (Bld) [Pure # fraction] 0.0 E9/L Normal 0.0 - 0.2 E9/L Remisol Heme Eosinophils (Bld) [#/Vol] 0.1 E9/L Normal 0.0 - 0.5 E9/L Remisol Heme Eosinophils/100 WBC (Bld) 2.0 % Normal 0.0 - 8.0 % Remisol Heme Erythrocyte distribution width (RBC) [Ratio] 12.4 % Normal 10.9 - 14.2 % Remisol Heme Hematocrit (Bld) [Volume fraction] 38.6 % Normal 34.0 - 46.0 % Remisol Heme Hemoglobin (Bld) [Mass/Vol] 13.3 g/dL Normal 12.0 - 16.0 gm/dL Remisol Heme Lymphocytes (Bld) [#/Vol] 1.0 E9/L Normal 1.0 - 4.0 E9/L Remisol Heme Lymphocytes/100 WBC (Bld) 26.3 % Normal 14.0 - 50.0 % Remisol Heme MCH (RBC) [Entitic mass] 30.5 pg Normal 27.0 - 34.0 pg Remisol Heme MCHC (RBC) [Mass/Vol] 34.5 g/dL Normal 31.4 - 36.0 gm/dL Remisol Heme MCV (RBC) [Entitic vol] 88.3 fL Normal 80.0 - 100.0 fL Remisol Heme Monocytes (Bld) [#/Vol] 0.2 E9/L Normal 0.2 - 1.0 E9/L Remisol Heme Monocytes/100 WBC (Bld) 6.0 % Normal 4.0 - 14.0 % Remisol Heme Neutrophils (Bld) [#/Vol] 2.4 E9/L Normal 2.0 - 7.5 E9/L Remisol Heme Neutrophils/100 WBC (Bld) 65.1 % Normal 36.0 - 75.0 % Remisol Heme Platelet 241.0 E9/L Normal 150.0 - 500.0 E9/L Remisol Heme Platelet mean volume (Bld) [Entitic vol] 8.4 fL Normal 6.4 - 10.8 fL Remisol Heme RBC (Bld) [#/Vol] 4.4 E12/L Normal 4.3 - 5.9 E12/L Remisol Heme WBC corrected for nucl RBC Auto (Bld) [#/Vol] 3.7 E9/L Low 4.0 - 11.0 E9/L Remisol Heme Lipid Panelon 11-20-2023 Cholesterol [Mass/Vol] 170 mg/dL Normal 120-200 [facility] Comment on above: Performed By: #### 2 [id number] #### [facility] [address] [place] [address] Cholesterol in HDL [Mass/Vol] 54 mg/dL Invalid Interpretation Code [facility] Comment on above: Result Comment: '>= 60 LOW RISK' '<= 40 HIGH RISK' Performed By: #### 2 [id number] #### [facility] [address] [place] [address] Cholesterol in LDL [Mass/Vol] 114 mg/dL Normal <=129 [facility] Comment on above: Performed By: #### 2 [id number] #### [facility] [address] [place] [address] Cholesterol in VLDL [Mass/Vol] 17 mg/dL Normal 7-40 [facility] Comment on above: Performed By: #### 2 [id number] #### [facility] [address] [place] [address] Triglyceride [Mass/Vol] 85 mg/dL Normal <=149 [facility] Comment on above: Performed By: #### 2 [id number] #### [facility] [address] [place] [address] TSH With T4fr Reflexon 11-19 TSH Qn 2.46 m[IU]/L Normal 0.34-5.60 [facility] Comment on above: Performed By: #### 1 [id number] #### [facility] [address] [place] [address] eGFRon 11-20-2023 eGFR 113 mL/min/1.73 m2 Normal >=59 [facility] Comment on above: Order Comment: Order added by Discern Expert. Performed By: #### 1 [id number] #### [facility] [address] [place] [address] T3 Freeon 08-15-2023 Free T3 [Mass/Vol] 3.1 pg/mL Invalid Interpretation Code 2.0-4.4 [facility] Comment on above: Result Comment: Perf ormed at: [facility] [address] [id number] PhD Brian Arthur Performed By: #### 2 [id number] #### [facility] [address] [place] [address] CHEMISTRYOrdered By: SYSTEM SYSTEM on 08-14-2023 25-hydroxyvitamin D3 [Mass/Vol] 33.7 ng/mL Normal 30.0 - 100.0 ng/mL Remisol Chem Free T4 [Mass/Vol] 0.91 ng/dL Normal 0.58 - 1. 64 ng/dL Remisol Chem TSH Qn 3.34 m[IU]/L Normal 0.34 - 5.60 mcIU/mL Remisol Chem Consent for Treatmenton 07-29 Consent for Treatment [id number] #1.00TIFF Normal [facility] Consultation Noteon 08-14-19 24 Consultation Note [id number] #1.00TIFF Normal [facility] Free T4on 08-14-2023 Free T4 [Mass/Vol] 0.91 ng/dL Normal 0.58-1.64 [facility] Comment on above: Performed By: #### 2 [id number] #### [facility] [address] [place] [address] Physician Orderon 08-14-2023 Physician Order [id number] 1#1.00TIFF Normal [facility] TSHon 08-14-2023 TSH Qn 3.34 m[IU]/L Normal 0.34-5.60 [facility] Comment on above: Performed By: #### 2 [id number] #### [facility] [address] [place] [address] Vitamin D 25 Hydroxyon 08-13 25-hydroxyvitamin D3 [Mass/Vol] 33.7 ng/mL Normal 30.0-100.0 [facility] Comment on above: Performed By: #### 5 [id number] #### [facility] [address] [place] [address] Physician Referralon 024 Physician Referral [id number] #1.00TIFF Normal [facility] Family Medicine Office/Clini c Noteon 07-04-2023 Family Medicine Office/Clinic Note HPI Staff Jyoti is a 37 year old female presenting acute visit Migraines - Migraines are getting more frequent they use to come once a week now they are every other day if not every 3 days. woke up with a migraine this morning and did take a Nurtec it did take some of the pain but still continues to have a lingering headache. Was given a sample of a medication to take daily had to stop that due to eye lids would swell. History of Present Illness pt presents today for worsening migranes Physical Exam Vitals & Measurements HR: 76(Peripheral) RR: 16 BP: 110/78 SpO2: 98% HT: 62 in HT: 157.5 cm WT: 54.8 kg WT: 120.56 lb BMI: 22.09 General: alert, no acute distress ENMT: oral mucosa moist, no pharyngeal erythema or exudate Cardiovascular: regular rate and rhythm, normal peripheral perfusion Respiratory: Lungs CTA, respirations non labored Extremities: no deformity, no trauma Neurological: oriented x 4, LOC appropriate for age, CN II-XII intact, motor strength equal & normal bilaterally, speech normal Assessment/Plan 1. Migraines (G43.909: Migraine, unspecified, not intractable, without status migrainosus) mirgrianes 3-4 times per week. worsening. tried [facility] and had [facility]. has tried Topamax and triptans. will refer to neuro for further evaluation Ordered: [facility] External Ambulatory Referral 2. BMI 22.0-22.9, adult (Z68.22: Body mass index [BMI] 22.0-22.9, adult) BMI education complete Ordered: promethazine, 25 mg = 1 tab(s), Oral, Once, PRN Migraine headache, # 30 tab(s), Refills(s) 0, Pharmacy: [facility], 157.5, cm, 07/03/23 15:37:00 EDT, Height/Length Dosing, 54.8, kg, 07/03/23 15:37:00 EDT, Weight Dosing [facility] External Ambulatory Referral Orders: rimegepant, 75 mg = 1 tab(s), Oral, Once, # 16 tab(s), Refills(s) 1, Pharmacy: [facility], 157.5, cm, 07/03/23 15:37:00 EDT, Height/Length Dosing, 54.8, kg, 07/03/23 15:37:00 EDT, Weight Dosing Follow-up No qualifying data available Problem List/Past Medical History Ongoing BMI 21.0-21.9, adult Hypothyroidism Migraines Historical No qualifying data Procedure/Surgical History Salpingectomy, Tonsillectomy. Medications levothyroxine 50 mcg (0.05 mg) Tab Nurtec ODT 75 mg oral tablet, disintegrating, See Instructions Nurtec ODT 75 mg oral tablet, disintegrating, 75 mg= 1 tab(s), Oral, Once, 1 refills promethazine 25 mg Tab, 25 mg= 1 tab(s), Oral, Once, PRN Allergies Qulipta (Swollen face) Azithromycin 5 Day Dose Pack (Rash) Helen 24 Hour Allergy (Menorrhagia) Augmentin (Dizziness) Biaxin (Dizzy) Eggs (Unknown) Restasis (Vision disorder) Vicodin (Nausea and vomiting) sulfa drugs (Headache) Social History Tobacco Never (less than 100 in lifetime) Tobacco Use:. Never Smokeless Tobacco Use:. Household tobacco concerns: No., 07/03/2023 Family History Acute myocardial infarction: Father. Diabetes mellitus type 1: Grandparent. Immunizations Vaccine Date Status Comments influenza virus vaccine, inactivated - Not Given Patient Refuses Normal [facility] Comment on above: Result Comment: Elec tronically Signed By: Eloisa Rivas\.jaclyn\Date and Time Signed: 07/04/23 14:45 EDT Ambulatory Visit Summaryon 0 07-03-2023 Ambulatory Visit Summary JYOTI PARKS :1985 Visit Date:07/03/2023 Ambulatory Visit Instructions Your Diagnosis BMI 22.0-22.9, adult Your Care Team Attending Physician - Eloisa Rivas Primary Care Physician - Uri Gibbs MD This Is Your Medications List levothyroxine (levothyroxine 50 mcg (0.05 mg) Tab) rimegepant (Nurtec ODT 75 mg oral tablet, disintegrating) Procedures Performed Salpingectomy, Tonsillectomy. Discharge Vitals Heart Rate (Peripheral) 76 Respiratory Rate 16 Blood Pressure 110/78 Height 157.5 cm Height 62 in Weight 54.8 kg Weight 120.56 lb BMI 22.09 What to do next Scheduled Follow-Up Appointments Friday 8:15 AM EDT With: Uri Gibbs MD Where: [facility] Ambulatory Visit Summaryon 0 05-22-2023 Ambulatory Visit Summary JYOTI PARKS :1985 Visit Date:05/22/2023 Ambulatory Visit Instructions Your Diagnosis BMI 21.0-21.9, adult Your Care Team Attending Physician - PAIGE CRATER CNP Primary Care Physician - Uri Gibbs MD This Is Your Medications List atogepant (Qulipta 60 mg oral tablet) levothyroxine (levothyroxine 50 mcg (0.05 mg) Tab) rimegepant (Nurtec ODT 75 mg oral tablet, disintegrating) Procedures Performed Salpingectomy, Tonsillectomy. Discharge Vitals Heart Rate (Peripheral) 77 Blood Pressure 100/60 Height 157.5 cm Height 62 in Weight 53.2 kg Weight 117.04 lb BMI 21.45 What to do next Scheduled Follow-Up Appointments Friday 8:15 AM EDT With: Uri Gibbs MD Where: [facility] Family Medicine Office/Clini c Noteon 05-22-2023 Family Medicine Office/Clinic Note Chief Complaint right eye swollen HPI Staff Patient of Dr. Gibbs presents for swollen eye after starting Qulipta. complaints of right eyelid swollen Onset: over the weekend Characteristics: swelling, itchy, skin was red (irritated) OTC tried: zyrtec, benadryl -has improved. I have reviewed and verified the staff HPI to be accurate for this encounter. History of Present Illness 37 year old female patient of Dr. Gibbs presents today for evaluation of right eyelid edema. She reports she noticed the edema in the right upper eyelid over the weekend and thought is might be due to the Qulipta. She reports she stopped the Qulipta on Friday and today she woke up with a migraine. She reports the edema did not subside after stopping the Qulipta. She did take some benadryl which did help with the edema. She denies and redness, drainage, or injury to the right eye. She reports her nor her son can see what she is talking about. She wants to make sure she does not have pinkeye as she will be leaving on vacation next week. Review of Systems PHQ Score Initial Depression Screen Score: 0 SCORE Constitutional: no fever, no chills, no sweats, no weakness Skin: no Jaundice, no rash, no lesions, nopetechiae ENMT: no ear pain, no sore throat, no congestion, no hoarseness; right eyelid edema Respiratory: no shortness of breath, no cough, no orthopnea, no wheezing Cardiovascular: no chest pain, no palpitations, no edema Additional ROS info: Except as noted in the above Review of Systems and in the History of Present Illness all other systems have been reviewed and are negative or noncontributory. Physical Exam Vitals & Measurements HR: 77(Peripheral) BP: 100/60 SpO2: 97% HT: 62 in HT: 157.5 cm WT: 53.2 kg WT: 117.04 lb BMI: 21.45 General: alert, no acute distress Skin: warm, dry Head: no trauma, normocephalic Neck: Trachea midline, no adenopathy, no tenderness Eye: normal conjunctiva, sclera clear, no drianage, no erythema, no edema of the right or left eyelid(s) Cardiovascular: regular rate and rhythm, normal peripheral perfusion Respiratory: Lungs CTA, respirations non labored Neurological: oriented x 4, LOC appropriate for age speech normal Psychiatric: cooperative, affect appropriate for age, normal judgement, normal psychiatric thoughts. Assessment/Plan 1. Edema of right eyelid (H02.843: Edema of right eye, unspecified eyelid) Resolving Continue with antihistamine as needed f/u if symptoms increase or edema increases 2. BMI 21.0-21.9, adult (Z68.21: Body mass index [BMI] 21.0-21.9, adult) BMI 21.45 WNL Stable Follow-up No qualifying data available Problem List/Past Medical History Ongoing BMI 21.0-21.9, adult Hypothyroidism Migraines Historical No qualifying data Procedure/Surgical History Salpingectomy, Tonsillectomy. Medications levothyroxine 50 mcg (0.05 mg) Tab Nurtec ODT 75 mg oral tablet, disintegrating, See Instructions Qulipta 60 mg oral tablet, 60 mg= 1 tab(s), Oral, Daily, Not taking: due to possible side effect Allergies Azithromycin 5 Day Dose Pack (Rash) Helen 24 Hour Allergy (Menorrhagia) Augmentin (Dizziness) Biaxin (Dizzy) Eggs (Unknown) Restasis (Vision disorder) Vicodin (Nausea and vomiting) sulfa drugs (Headache) Social History Tobacco Never (less than 100 in lifetime) Tobacco Use:. Never Smokeless Tobacco Use:. Household tobacco concerns: No., 05/22/2023 Family History Acute myocardial infarction: Father. Diabetes mellitus type 1: Grandparent. Immunizations Vaccine Date Status Comments influenza virus vaccine, inactivated - Not Given Patient Refuses Normal [facility] Comment on above: Result Comment: Elec tronically Signed By: PAIGE CARTER CNP\.br\Date and Time Signed: 05/22/23 15:31 EST Ambulatory Visit Summaryon 0 05-05-2023 Ambulatory Visit Summary JYOTI PARKS :1985 Visit Date:05/05/2023 Ambulatory Visit Instructions Your Diagnosis Hypothyroidism Migraines BMI 21.0-21.9, adult Nonsmoker Your Care Team Attending Physician - Uri Gibbs MD Primary Care Physician - Uri Gibbs MD This Is Your Medications List atogepant (Qulipta 60 mg oral tablet) rimegepant (Nurtec ODT 75 mg oral tablet, disintegrating) Contact prescribing physician if questions or concerns levothyroxine (levothyroxine 50 mcg (0.05 mg) Tab) Procedures Performed Salpingectomy, Tonsillectomy. Discharge Vitals Temperature (Oral) 36.8 ?C Heart Rate (Peripheral) 58 Respiratory Rate 14 Blood Pressure 112/70 Height 157.5 cm Height 62 in Weight 53.7 kg Weight 118.14 lb BMI 21.65 What to do next Scheduled Follow-Up Appointments Friday 8:15 AM EDT With: Eric JUAREZ, Uri Leung Where: [facility] Medicine Jacinta Normal [facility] Family Medicine Office/Clini c Noteon 05-05-2023 Family Medicine Office/Clinic Note HPI Staff Jyoti is a 37 year old female presenting for 6 month follow up migraines and thyroid Headaches: Time of Onset: last migraine Location: around the right eye typically _ _ _ Typical headache frequency: used to be once a week has bumped up to twice a week Prior headache work-up: saw ENT couple years ago and had ct sinuses at [facility] _ Patient is here for follow up on Thyroid Disease. Do you have any of the following symptoms? Change in energy level? no Weight change? has gained a little weight Heat/cold intolerance? no Hair/skin/nail changes? no Change in bowels? no Last TSH: TSH: 3.17 mcIU/mL (09/02/22 12:07:00) flu: refused questions/concerns: probably needs refill of nurteq but wants to discuss, as she's needing it more often History of Present Illness Pt here for follow up. Now having migraines about twice a week. Using Nurtec which works. Would like to talk about other options. No issues with her thyroid. Seeing Endo. Review of Systems PHQ Score Initial Depression Screen Score: 0 SCORE Physical Exam Vitals & Measurements T: 36.8 ?C(Oral) HR: 58(Peripheral) RR: 14 BP: 112/70 SpO2: 99% HT: 62 in HT: 157.5 cm WT: 53.7 kg WT: 118.14 lb BMI: 21.65 General: alert, no acute distress ENMT: oral mucosa moist, Cardiovascular: regular rate and rhythm, normal peripheral perfusion Respiratory: Lungs CTA, respirations non labored Extremities: no deformity, no trauma Neurological: oriented x 4, LOC appropriate for age, CN II-XII intact, motor strength equal & normal bilaterally, speech normal Abdomen: Soft, Nontender, Non-distended, + BS Assessment/Plan 1. Hypothyroidism (E03.9: Hypothyroidism, unspecified) Continue following up with Endo. No symptoms Labs to be done before endo 2. Migraines (G43.909: Migraine, unspecified, not intractable, without status migrainosus) Will give sample of Quilipta and refill nurtec. Pt will look into emgality. 3. BMI 21.0-21.9, adult (Z68.21: Body mass index [BMI] 21.0-21.9, adult) BMI education given. 4. Nonsmoker (Z78.9: Other specified health status) Please continue to not smoke Orders: atogepant, 60 mg = 1 tab(s), Oral, Daily, # 1 tab(s), Refills(s) 0, samples given to patient (Rx) rimegepant, See Instructions, PLACE ONE TABLET BY MOUTH EVERY DAY NEEDED FOR MIGRAINE, # 12 tab(s), Refills(s) 0, Pharmacy: [facility], 157.5, cm, 05/05/23 7:25:00 EST, Height/Length Dosing, 53.7, kg, 05/05/23 7:25:00 EST, Weight Dosing Follow-up No qualifying data available Patient Education Hypothyroidism Problem List/Past Medical History Ongoing Hypothyroidism Migraines Historical No qualifying data Procedure/Surgical History Salpingectomy, Tonsillectomy. Medications levothyroxine 50 mcg (0.05 mg) Tab Nurtec ODT 75 mg oral tablet, disintegrating, See Instructions Qulipta 60 mg oral tablet, 60 mg= 1 tab(s), Oral, Daily Allergies Azithromycin 5 Day Dose Pack (Rash) Helen 24 Hour Allergy (Menorrhagia) Augmentin (Dizziness) Biaxin (Dizzy) Eggs (Unknown) Restasis (Vision disorder) Vicodin (Nausea and vomiting) sulfa drugs (Headache) Social History Tobacco Never (less than 100 in lifetime) Tobacco Use:. Never Smokeless Tobacco Use:. Household tobacco concerns: No., 05/05/2023 Family History Acute myocardial infarction: Father. Diabetes mellitus type 1: Grandparent. Immunizations Vaccine Date Status Comments influenza virus vaccine, inactivated - Not Given Patient Refuses Normal [facility] Comment on above: Result Comment: Elec tronically Signed By: Eric JUAREZ, Uri Leung\.br\Date and Time Signed: 05/05/23 07:49 EST Patient Educationon 05-05-19 Patient Education Endocrinology Hypothyroidism Hypothyroidism is when the thyroid gland does not make enough of certain hormones. This is called an underactive thyroid. The thyroid gland is a small gland located in the lower front part of the neck, just in front of the windpipe (trachea). This gland makes hormones that help control how the body uses food for energy (metabolism) as well as how the heart and brain function. These hormones also play a role in keeping your bones strong. When the thyroid is underactive, it produces too little of the hormones thyroxine (T4) and triiodothyronine (T3). What are the causes? This condition may be caused by: ? Essie's disease. This is a disease in which the body's disease-fighting system (immune system) attacks the thyroid gland. This is the most common cause. ? Viral infections. ? . ? Certain medicines. ? defects. ? Problems with a gland in the center of the brain (pituitary gland). ? Lack of enough iodine in the diet. Other causes may include: ? Past radiation treatments to the head or neck for cancer. ? Past treatment with radioactive iodine. ? Past exposure to radiation in the environment. ? Past surgical removal of part or all of the thyroid. What increases the risk? You are more likely to develop this condition if: ? You are female. ? You have a family history of thyroid conditions. ? You use a medicine called lithium. ? You take medicines that affect the immune system (immunosuppressants) . What are the signs or symptoms? Common symptoms of this condition include: ? Not being able to tolerate cold. ? Feeling as though you have no energy (lethargy). ? Lack of appetite. ? Constipation. ? Sadness or depression. ? Weight gain that is not explained by a change in diet or exercise habits. ? Menstrual irregularity. ? Dry skin, coarse hair, or brittle nails. Other symptoms may include: ? Muscle pain. ? Slowing of thought processes. ? Poor memory. How is this diagnosed? This condition may be diagnosed based on: ? Your symptoms, your medical history, and a physical exam. ? Blood tests. You may also have imaging tests, such as an ultrasound or MRI. How is this treated? This condition is treated with medicine that replaces the thyroid hormones that your body does not make. After you begin treatment, it may take several weeks for symptoms to go away. Follow these instructions at home: ? Take [id number] and prescription medicines only as told by your health care provider. ? If you start taking any new medicines, tell your health care provider. ? Keep all follow-up visits as told by your health care provider. This is important. ? As your condition improves, your dosage of thyroid hormone medicine may change. ? You will need to have blood tests regularly so that your health care provider can monitor your condition. Contact a health care provider if: ? Your symptoms do not get better with treatment. ? You are taking thyroid hormone replacement medicine and you: ? Sweat a lot. ? Have tremors. ? Feel anxious. ? Lose weight rapidly. ? Cannot tolerate heat. ? Have emotional swings. ? Have diarrhea. ? Feel weak. Get help right away if: ? You have chest pain. ? You have an irregular heartbeat. ? You have a rapid heartbeat. ? You have difficulty breathing. These symptoms may be an emergency. Get help right away. Call 911. ? Do not wait to see if the symptoms will go away. ? Do not drive yourself to the hospital. Summary ? Hypothyroidism is when the thyroid gland does not make enough of certain hormones (it is underactive). ? When the thyroid is underactive, it produces too little of the hormones thyroxine (T4) and triiodothyronine (T3). ? The most common cause is Essie's disease, a disease in which the body's disease-fighting system (immune system) attacks the thyroid gland. The condition can also be caused by viral infections, medicine, , or past radiation treatment to the head or neck. ? Symptoms may include weight gain, dry skin, constipation, feeling as though you do not have energy, and not being able to tolerate cold. ? This condition is treated with medicine to replace the thyroid hormones that your body does not make. This information is not intended to replace advice given to you by your health care provider. Make sure you discuss any questions you have with your health care provider. Document Revised: 03/19/2022 Document Reviewed: 03/19/2022 [employer] Patient Education ? 2022 [employer]. [facility] CHEMISTRYOrdered By: SYSTEM SYSTEM on 11-13-2022 Albumin [Mass/Vol] 4.3 g/dL Normal 3.3 - 5.0 gm/dL [facility] Albumin/Globulin [Mass ratio] 1.4 {ratio} Normal 1.1 - 2.2 [facility] ALP [Catalytic activity/Vol] 46 [iU]/d Normal 21 - 98 Int._Unit/L [facility] ALT No additional P-5'-P [Catalytic activity/Vol] 13 [iU]/d Normal 6 - 46 Int._Unit/L [facility] Anion gap [Moles/Vol] 12 mmol/L Normal 6 - 16 mEq/L [facility] AST [Catalytic activity/Vol] 20 [iU]/d Normal 5 - 43 Int._Unit/L [facility] Bilirubin [Mass/Vol] 0.6 mg/dL Normal 0.0 - 1 .1 mg/dL [facility] Calcium [Mass/Vol] 8.8 mg/dL Low 8.9 - 11. 1 mg/dL [facility] Chloride [Moles/Vol] 105 mmol/L Normal 101 - 1 11 mmol/L [facility] Cholesterol [Mass/Vol] 188 mg/dL Normal 120 - 200 mg/dL [facility] Cholesterol in HDL [Mass/Vol] 53 mg/dL Invalid Interpretation Code [facility] Cholesterol in LDL [Mass/Vol] 112 mg/dL Normal <=129mg/dL [facility] Cholesterol in VLDL [Mass/Vol] 23 mg/dL Normal 7 - 40 mg/dL [facility] CO2 [Moles/Vol] 25 mmol/L Normal 21 - 31 mmol/L [facility] Creatinine [Mass/Vol] 0.7 mg/dL Normal 0.5 - 1.3 mg/dL [facility] GFR/1.73 sq M.predicted among non-blacks MDRD (S/P/Bld) [Vol rate/Area] 113 mL/min/1.73 m2 Normal >=59mL/min/1 .73 m2 [facility] Chem S Globulin (S) [Mass/Vol] 3.0 g/dL Normal 1.4 - 4.0 gm/dL [facility] Glucose [Mass/Vol] 87 mg/dL Normal 55 - 199 mg/dL [facility] Potassium [Moles/Vol] 3.6 mmol/L Normal 3.5 - 5.3 mmol/L [facility] Protein [Mass/Vol] 7.3 g/dL Normal 6.0 - 7.8 gm/dL [facility] Sodium [Moles/Vol] 138 mmol/L Normal 135 - 145 mmol/L [facility] Triglyceride [Mass/Vol] 114 mg/dL Normal <=149mg/dL [facility] Urea nitrogen [Mass/Vol] 10 mg/dL Normal 5 - 21 mg/dL [facility] Urea nitrogen/Creatinine [Mass ratio] 14 mg/mg Normal 10 - 20 [facility] HEMATOLOGYOrdered By: SYSTEM SYSTEM on 11-13-2022 Basophils/100 WBC (Bld) 0.4 % Normal 0.0 - 2.0 % [facility] Basophils/Leukocytes Auto (Bld) [Pure # fraction] 0.0 E9/L Normal 0.0 - 0.2 E9/L [facility] Eosinophils/100 WBC (Bld) 2.0 % Normal 0.0 - 8.0 % [facility] Eosinophils/Leukocyte s Auto (Bld) [Pure # fraction] 0.1 E9/L Normal 0.0 - 0.5 E9/L [facility] Lymphocytes/100 WBC (Bld) 30.0 % Normal 14.0 - 50.0 % [facility] Lymphocytes/Leukocyte s Auto (Bld) [Pure # fraction] 1.3 E9/L Normal 1.0 - 4.0 E9/L [facility] Monocytes/100 WBC (Bld) 8.1 % Normal 4.0 - 14.0 % [facility] Monocytes/Leukocytes Auto (Bld) [Pure # fraction] 0.4 E9/L Normal 0.2 - 1.0 E9/L [facility] Neutrophils/100 WBC (Bld) 59.5 % Normal 36.0 - 75.0 % [facility] Neutrophils/Leukocyte s Auto (Bld) [Pure # fraction] 2.6 E9/L Normal 2.0 - 7.5 E9/L [facility] HEMATOLOGYOrdered By: Alonzo Loredo on 11-13-2022 Erythrocyte distribution width (RBC) [Ratio] 13.0 % Normal 10.9 - 14.2 % [facility] Hematocrit (Bld) [Volume fraction] 39.0 % Normal 34.0 - 46.0 % [facility] Hemoglobin (Bld) [Mass/Vol] 13.4 g/dL Normal 12.0 - 16.0 gm/dL [facility] MCH (RBC) [Entitic mass] 29.7 pg Normal 27.0 - 34.0 pg [facility] MCHC (RBC) [Mass/Vol] 34.4 g/dL Normal 31.4 - 36.0 gm/dL [facility] MCV (RBC) [Entitic vol] 86.3 fL Normal 80.0 - 100.0 fL [facility] Platelet mean volume (Bld) [Entitic vol] 8.2 fL Normal 6.4 - 10.8 fL [facility] Platelets (Bld) [#/Vol] 189.0 E9/L Normal 150.0 - 500.0 E9/L [facility] RBC (Bld) [#/Vol] 4.5 E12/L Normal 4.3 - 5.9 E12/L [facility] WBC corrected for nucl RBC Auto (Bld) [#/Vol] 4.4 E9/L Normal 4.0 - 11.0 E9/L [facility] CHEMISTRYOrdered By: SYSTEM SYSTEM on 09-02-2022 Free T4 [Mass/Vol] 1.03 ng/dL Normal 0.58 - 1. 64 ng/dL [facility] TSH Qn 3.17 m[IU]/L Normal 0.34 - 5.60 mcIU/mL [facility] CHEMISTRYOrdered By: SYSTEM SYSTEM on 12-21-2021 Cholesterol [Mass/Vol] 165 mg/dL Normal 120 - 200 mg/dL [facility] Cholesterol in HDL [Mass/Vol] 54 mg/dL Invalid Interpretation Code [facility] Cholesterol in LDL [Mass/Vol] 100 mg/dL Normal <=129mg/dL [facility] Cholesterol in VLDL [Mass/Vol] 12 mg/dL Normal 7 - 40 mg/dL [facility] Triglyceride [Mass/Vol] 60 mg/dL Normal <=149mg/dL [facility] CHEMISTRYOrdered By: Cathie Foster on 12-21-2021 HbA1c (Bld) [Mass fraction] 5.1 % Normal <=5.9% [facility] ChemAutoSS CHEMISTRYOrdered By: SYSTEM SYSTEM on 09-07-2021 25-hydroxyvitamin D3 [Mass/Vol] 37.8 ng/mL Normal 30.0 - 100.0 ng/mL [facility] Free T4 [Mass/Vol] 1.05 ng/dL Normal 0.58 - 1. 64 ng/dL [facility] TSH Qn 2.58 m[IU]/L Normal 0.34 - 5.60 mcIU/mL [facility] Remisol HEMOGLOBIN A1con 09-23-2019 HbA1c (Bld) [Mass fraction] 4.9 % of total Hgb Normal <5.7 [facility] Comment on above: Result Comment: For the purpose of screening for the presence of diabetes: <5.7% Consistent with the absence of diabetes 5.7-6.4% Consistent with increased risk for diabetes (prediabetes) > or =6.5% Consistent with diabetes This assay result is consistent with a decreased risk of diabetes. Currently, no consensus exists regarding use of hemoglobin A1c for diagnosis of diabetes in children. According to [place] Diabetes Association (ADA) guidelines, hemoglobin A1c <7.0% represents optimal control in non- diabetic patients. Different metrics may apply to specific patient populations. Standards of Medical Care in Diabetes(ADA). Performed By: #### 1 [id number], [id number] #### [facility]-[address], [address] [place], [place] [id number] [employer] Helper: Manuel Law MD LIPID PANEL WITH REFLEX TO D IRECT LDLon 09-23-2019 Cholesterol [Mass/Vol] 174 mg/dL Normal <200 [facility] Comment on above: Order Comment: FASTI NG: UNKNOWN Performed By: #### 1 [id number], 496 #### [facility], [address] [place] [id number] [employer] Helper: Manuel Law MD Cholesterol in HDL [Mass/Vol] 57 mg/dL Normal > OR = 50 [facility] Comment on above: Order Comment: FASTI NG: UNKNOWN Performed By: #### 1 6022, 496 #### [facility], [address] [place] [address] [employer] Helper: Manuel Law MD Cholesterol in LDL [Mass/Vol] 97 mg/dL (calc) Normal [facility] Comment on above: Order Comment: FASTI NG: UNKNOWN Result Comment: Refe rence range: <100 Desirable range <100 mg/dL for primary prevention; <70 mg/dL for patients with CHD or diabetic patients with > or = 2 CHD risk factors. LDL-C is now calculated using the Azalia calculation, which is a validated novel method providing better accuracy than the Friedewald equation in the estimation of LDL-C. Claude SS et al. RACHANA. 2013;310(19): 4325-5103 (http://education.FAGUO/faq/LKY597) Performed By: #### 1 4852, 496 #### [facility], [address] [place] [address] Mill[place] Helper: Manuel Law MD Cholesterol.total/Cho lesterol in HDL [Mass ratio] 3.1 (calc) Normal <5.0 [facility] Comment on above: Order Comment: FASTI NG: UNKNOWN Performed By: #### 1 485, 496 #### [facility] [place] [address] [place] Helper: Manuel Law MD NON HDL CHOLESTEROL 117 mg/dL (calc) Normal <130 [facility] Comment on above: Order Comment: FASTI NG: UNKNOWN Result Comment: For patients with diabetes plus 1 major ASCVD risk factor, treating to a non-HDL-C goal of <100 mg/dL (LDL-C of <70 mg/dL) is considered a therapeutic option. Performed By: #### 1 [id number], 496 #### [facility], [address] [place] [address] [employer] Helper: Manuel Law MD Triglyceride [Mass/Vol] 104 mg/dL Normal <150 [facility] Comment on above: Order Comment: FASTI NG: UNKNOWN Performed By: #### 1 [id number], 496 #### [facility], [address] [place] [address] [employer] Helper: Manuel Law MD Vital Signs Date Time Vital Sign Value Performing Clinician Facility 11-11-2024 10:47-0400 Body mass index (BMI) [Ratio] 21.73 kg/m2 Kobi Rik DO Work Phone: [facility] 11-11-2024 10:47-0400 Body weight 53.89 kg Kobi Rik DO Work Phone: [facility] 11-11-2024 10:47-0400 Diastolic blood pressure 68 mm[Hg] Kobi Rik DO Work Phone: [facility] 11-11-2024 10:47-0400 Systolic blood pressure 100 mm[Hg] Kobi Rik DO Work Phone: [facility] 10-14-2024 09:56-0400 Body mass index (BMI) [Ratio] 21.77 kg/m2 Kobi Rik DO Work Phone: [facility] 10-14-2024 09:56-0400 Body weight 53.98 kg Kobi Rik DO Work Phone: [facility] 10-14-2024 09:56-0400 Diastolic blood pressure 86 mm[Hg] Kobi Rik DO Work Phone: [facility] 10-14-2024 09:56-0400 Systolic blood pressure 114 mm[Hg] Kobi Rik DO Work Phone: [facility] 08-04-2024 16:15-0400 Body height 157.5 cm Bernadette East [employer] Work Phone: [facility] 08-04-2024 16:15-0400 Body mass index (BMI) [Ratio] 21.95 kg/m2 Bernadette East [employer] Work Phone: [facility] 08-04-2024 16:15-0400 Body weight 54.43 kg Bernadette East [employer] Work Phone: [facility] 08-04-2024 16:15-0400 Diastolic blood pressure 75 mm[Hg] Bernadette Hillr [employer] Work Phone: [facility] 08-04-2024 16:15-0400 Heart rate 67 /min Bernadette Hillr [employer] Work Phone: [facility] 08-04-2024 16:15-0400 Systolic blood pressure 109 mm[Hg] Bernadette Hillr [employer] Work Phone: [facility] 02-22-2024 12:23-0500 Blood Pressure Location [facility] 02-22-2024 12:23-0500 Body temperature 99.86 [degF] [facility] 02-22-2024 12:23-0500 Diastolic blood pressure 68 mm[Hg] [facility] 02-22-2024 12:23-0500 Heart rate 71 /min [facility] 02-22-2024 12:23-0500 SaO2% (BldA) [Mass fraction] 100 % [facility] 02-22-2024 12:23-0500 Systolic blood pressure 110 mm[Hg] [facility] 02-17-2024 16:23-0500 Body height 157.5 cm Jeff Yolie DO Work Phone: [facility] 02-17-2024 16:23-0500 Body mass index (BMI) [Ratio] 21.58 kg/m2 Jeff Yolie DO Work Phone: [facility] 02-17-2024 16:23-0500 Body weight 53.52 kg Jeff Yolie DO Work Phone: [facility] 02-17-2024 16:23-0500 Diastolic blood pressure 62 mm[Hg] Jeff Yolie DO Work Phone: [facility] 02-17-2024 16:23-0500 Heart rate 57 /min Jeff Yolie DO Work Phone: [facility] 02-17-2024 16:23-0500 SaO2% (BldA) [Mass fraction] 100 % Jeff Yolie DO Work Phone: [facility] 02-17-2024 16:23-0500 Systolic blood pressure 110 mm[Hg] Jeff Yolie DO Work Phone: [facility] Healthcare Encounters Encounter Date Encounter Type Care Provider Facility Start: 12-08-2024 ambulatory Eloisa Dahl Facility: [facility] Start: 11-11-2024 End: 11-11-2024 Patient encounter procedure Kobi Rik DO Work Phone: [facility] Comment on above: Pre-op examination; Menorrhagia with regular cycle; Abnormal uterine bleeding (AUB); Pelvic pain Start: 11-11-2024 End: 11-11-2024 Preprocedural examination done Kobi Rik DO Work Phone: [facility] Start: 11-11-2024 End: 11-11-2024 ambulatory KOBI RIK Not Available Start: 10-20-2024 End: 10-20-2024 ambulatory Kobi R RIK Facility:[facility] Start: 10-19-2024 End: 10-19-2024 ambulatory Kobi R RIK Facility:[facility] Start: 10-14-2024 End: 10-14-2024 Bamboo flowsheet Kobi Rik DO Work Phone: [facility] Start: 10-14-2024 End: 10-15-2024 Bamboo flowsheet Kobi Rik DO Work Phone: [facility] Start: 10-14-2024 End: 10-15-2024 External Result Encounter Kobi Rik DO Work Phone: [facility] External Department Unsolicited Start: 10-14-2024 End: 10-14-2024 Office outpatient visit 15 minutes Kobi Rik DO Work Phone: [facility] Comment on above: Pelvic pain in femal e Start: 10-14-2024 End: 10-14-2024 ambulatory KOBI RIK Not Available Start: 10-05-2024 End: 10-05-2024 ambulatory Raul CERDA Facility:[facility] Start: 10-05-2024 End: 10-05-2024 Patient encounter procedure Raul CERDA [facility] Start: 09-27-2024 End: 09-27-2024 ambulatory Raul CERDA Facility:[facility] Start: 09-27-2024 End: 09-27-2024 Lab Drop off Raul CERDA [facility] Start: 09-27-2024 End: 09-27-2024 ambulatory Raul CERDA Facility:[facility] Start: 09-27-2024 End: 09-27-2024 Patient encounter procedure Raul CERDA [facility] Start: 09-24-2024 ambulatory Raul CERDA Facility :[facility] Start: 09-10-2024 End: 09-10-2024 Bamboo flowsheet Leonel Rowe MD Work Phone: [facility] Start: 09-10-2024 End: 09-10-2024 Bamboo flowsheet Leonel Rowe MD Work Phone: [facility] Start: 09-10-2024 End: 09-10-2024 Office outpatient visit 25 minutes Leonel Rowe MD Work Phone: [facility] Comment on above: Essie's disease (Primary Dx); Thyroid nodule Start: 09-10-2024 End: 09-10-2024 ambulatory LEONEL ROWE Not Available Start: 08-31-2024 End: 08-31-2024 Emergency department patient visit Mj Shell Facility:[facility] Start: 08-31-2024 End: 08-31-2024 Lab Drop off Uri Gibbs [facility] Start: 08-31-2024 End: 08-31-2024 ambulatory MD Uri Gibbs Facility:[facility] Start: 08-25-2024 End: 08-25-2024 ambulatory LEONEL ROWE Facility:[facility] Start: 08-25-2024 End: 08-25-2024 Patient encounter procedure VALDEMARKRISH Effie CORREAGH [facility] Start: 08-12-2024 End: 08-12-2024 ambulatory Uri Gibbs Facility:[facility] Start: 08-12-2024 End: 08-12-2024 Patient encounter procedure Uri Gibbs [facility] Start: 08-04-2024 End: 08-04-2024 Office outpatient visit 15 minutes Bernadette East [employer] Work Phone: [facility] Comment on above: Nausea (Primary Dx); Migraine without aura and without status migrainosus, not intractable ([facility]) Start: 08-04-2024 End: 08-04-2024 ambulatory BERNADETTE EAST Not Available Start: 08-04-2024 End: 08-04-2024 Bamboo flowsheet Bernadette East [employer] Work Phone: [facility] Start: 08-04-2024 End: 08-04-2024 Bamboo flowsheet Bernadette East [employer] Work Phone: [facility] Start: 02-23-2024 End: 02-23-2024 ambulatory Joo Carmen Facility:[facility] Start: 02-23-2024 End: 02-23-2024 Patient encounter procedure Joo Carmen [facility] Start: 02-22-2024 End: 02-22-2024 Lab Drop off Joo Carmen [facility] Start: 02-22-2024 End: 02-22-2024 ambulatory Joo Carmen Facility:[facility] Start: 02-22-2024 End: 02-22-2024 Patient encounter procedure Joo [facility] Start: 02-17-2024 End: 02-17-2024 Office outpatient visit 15 minutes Jeff Parada DO Work Phone: [facility] [employer] [facility] Comment on above: Nausea (Primary Dx); Migraine without aura and without status migrainosus, not intractable ([facility]) Start: 02-17-2024 End: 02-17-2024 ambulatory JEFF PARADA Not Available Start: 02-17-2024 End: 02-17-2024 Bamboo flowsheet Jeff Yolie DO Work Phone: [facility] [employer] [facility] Start: 02-17-2024 End: 02-17-2024 Bamboo flowsheet Jeff Yolie DO Work Phone: [facility] [employer] [facility] Start: 02-16-2024 End: 02-16-2024 ambulatory Uri Gibbs Facility:[facility] Start: 02-16-2024 End: 02-16-2024 Patient encounter procedure Uri Gibbs [facility] Start: 11-20-2023 End: 11-20-2023 Lab Drop off Uri Gibbs [facility] Start: 11-20-2023 End: 11-20-2023 ambulatory MD Uri Gibbs Facility:[facility] Katt venturae Start: 08-14-2023 End: 08-15-2023 ambulatory LEONEL ROWE Facility:[facility] Start: 08-14-2023 ambulatory LEONEL ROWE Facilit y:[facility] Start: 08-14-2023 End: 08-14-2023 Patient encounter procedure LEONEL ROWE [facility] Start: 07-03-2023 End: 07-03-2023 ambulatory Eloisa Dahl Facility:[facility] Start: 05-22-2023 End: 05-22-2023 ambulatory PAIGE John CARTER Facility:[facility] Start: 05-05-2023 End: 05-05-2023 ambulatory MD Uri Gibbs Facility: [facility] Start: 11-13-2022 End: 11-13-2022 Patient encounter procedure Uri Gibbs [facility] Start: 09-02-2022 End: 09-02-2022 Patient encounter procedure LEONEL ROWE [facility] Start: 05-22-[address] ESEQUIEL Zuluaga y:[facility] Start: 12-21-2021 ambulatory GARCIA LAWSON Facility: [facility] Start: 12-21-2021 End: 12-21-2021 Patient encounter procedure GARCIA LAWSON [facility] Start: 09-07-2021 End: 09-07-2021 Patient encounter procedure LEONEL ROWE [facility] Start: 09-07-2021 End: 09-13-2021 Pre-admission assessment LEONEL ROWE [facility] Start: 06-22-2021 End: 06-22-2021 Patient encounter procedure Karlene Neil [facility] Start: 05-24-2021 End: 09-30-[address] ESEQUIEL CARLISLE Facility: Start: 06-04-2018 End: 06-05-2018 Patient encounter procedure [facility] Procedures Date Procedure Procedure Detail Performing Clinician Start: 11-11-2024 ENDOMETRIAL BIOPSY Core y Rik DO Work Phone: Start: 11-11-2024 Urine test visual color cmprsn meths Kobi Rik DO Work Phone: Start: 10-14-2024 RECURRENT VAGINITIS (HTRX) Kobi Rik DO Work Phone: Start: 10-14-2024 End: 10-14-2024 Urnls dip stick/tablet rgnt non-auto w/o micrscp Kobi Rik DO Work Phone: Fallopian tube excision Gissel Gibbs Comment on above: right 2014 Tonsillectomy Uri Gibbs Comment on above: 2011 Plan of Treatment Date Care Activity Detail Author Start: 09-08-2025 End: 09-08-2025 Telemedicine consultation with patient [facility] Start: 02-14-2025 End: 02-14-2025 Patient encounter procedure 02/14/2025 4:30 PM EST Office Visit [facility] [address] [place] [address] Jeff Parada DO [address] [place] [id number] [facility] Start: 11-11-2024 End: 11-11-2024 Patient encounter procedure 11/11/2024 10:30 AM EDT Procedure Visit [facility] [address] [place] [address] Kobi Jolly DO [address] [place] [address] [facility] Start: 10-14-2024 End: 10-14-2025 DHEA DHEA Lab Routine Pelvic pain in female Expected: 10/14/2024 (Approximate), Expires: 10/14/2025 [facility] Comment on above: Expected: 10/14/2024 (Approximate), Expi res: 10/14/2025 Start: 10-14-2024 End: 10-14-2025 US Pelvis US Pelvis w/ TV Imaging Routine Pelvic pain in female Expected: 10/14/2024, Expires: 10/14/2025 [facility] Comment on above: Expected: 10/14/2024, Expires: Start: 10-14-2024 End: 10-14-2024 Patient encounter procedure 10/14/2024 9:50 AM EDT Office Visit [facility] [address] [place] [id number] Kobi Jolly DO [address] [place] [address] Arrived [facility] Comment on above: Arrived Start: 09-10-2024 End: 09-10-2025 Thyrotropin [Units/volume] in Serum or Plasma TSH Lab Routine Essie's disease Expected: 09/10/2024 (Approximate), Expires: 09/10/2025 [facility] Comment on above: Expected: 09/10/2024 (Approximate), Expi res: 09/10/2025 Start: 09-10-2024 End: 09-10-2025 Thyroxine (T4) free [Mass/volume] in Serum or Plasma T4, free Lab Routine Essie's disease Expected: 09/10/2024 (Approximate), Expires: 09/10/2025 [facility] Comment on above: Expected: 09/10/2024 (Approximate), Expi res: 09/10/2025 Start: 09-10-2024 End: 09-10-2025 Triiodothyronine (T3) Free [Mass/volume] in Serum or Plasma T3, free Lab Routine Essie's disease Expected: 09/10/2024 (Approximate), Expires: 09/10/2025 [facility] Work Phone: Comment on above: Expected: 09/10/2024 (Approximate), Expi res: 09/10/2025 Start: 09-10-2024 End: 09-10-2024 Telemedicine consultation with patient 09/10/2024 11:30 AM EDT Telemedicine LOCATED [facility]IN [facility] [address] [place] [id number] Leonel Rowe MD [address] [place] [address] Arrived [facility] Comment on above: Arrived Start: 09-10-2024 End: 09-10-2024 Patient encounter procedure 09/10/2024 9:30 AM EDT Office Visit LOCATED [facility] [address] [place] [id number] Leonel Rowe MD [address] [place] [address] LOCATED [facility]IN [facility] Start: 08-04-2024 End: 08-04-2024 [facility] Comment on above: Arrived Start: 02-17-2024 End: 02-17-2024 Patient encounter procedure 02/17/2024 4:45 PM EST Office Visit [facility] [place] [place] [address] Jeff Parada, [address] [place] [address] Arrived [facility] [address] Comment on above: Arrived CBC W Auto Different ial panel - Blood CBC and differential Lab Routine Pelvic pain in female Ordered: 10/14/2024 [facility] Comment on above: Ordered: 10/14/2024 CHLAMYDIA TRACHOMATI S (GENITO/STI) CHLAMYDIA TRACHOMATIS (GENITO/STI) Lab Routine Pelvic pain in female Ordered: 10/14/2024 [facility] Comment on above: Ordered: 10/14/2024 DHEA-sulfate DHEA-sulfate Lab Routine Pelvic pain in female Ordered: 10/14/2024 [facility] Comment on above: Ordered: 10/14/2024 Estradiol Estradiol Lab Ro utine Pelvic pain in female Ordered: 10/14/2024 [facility] Comment on above: Ordered: 10/14/2024 Follicle stimulating hormone Follicle stimulating hormone Lab Routine Pelvic pain in female Ordered: 10/14/2024 [facility] Comment on above: Ordered: 10/14/2024 hCG, quantitative, hCG, quantitative, Lab Routine Pelvic pain in female Ordered: 10/14/2024 [facility] Comment on above: Ordered: 10/14/2024 Hemoglobin A1c/Hemoglobin.total in Blood Hemoglobin A1c Lab Routine Pelvic pain in female Ordered: 10/14/2024 [facility] Comment on above: Ordered: 10/14/2024 Luteinizing hormone Luteinizing hormone Lab Routine Pelvic pain in female Ordered: 10/14/2024 [facility] Comment on above: Ordered: 10/14/2024 Neisseria gonorrhoea e DNA [Presence] in Unspecified specimen by ANANTH with probe detection Neisseria gonorrhea DNA probe, direct Lab Routine Pelvic pain in female Ordered: 10/14/2024 [facility] Comment on above: Ordered: 10/14/2024 Progesterone Progesterone Lab Routine Pelvic pain in female Ordered: 10/14/2024 [facility] Comment on above: Ordered: 10/14/2024 SURESWAB(R) ADVANCED VAGINITIS PLUS, TMA SURESWAB(R) ADVANCED VAGINITIS PLUS, TMA Pathology and Cytology Routine Pelvic pain in female Ordered: 10/14/2024 [facility] Work Phone: Comment on above: Ordered: 10/14/2024 Thyrotropin [Units/volume] in Serum or Plasma TSH Lab Routine Pelvic pain in female Ordered: 10/14/2024 [facility] Comment on above: Ordered: 10/14/2024 Thyroxine (T4) free [Mass/volume] in Serum or Plasma T4, free Lab Routine Pelvic pain in female Ordered: 10/14/2024 [facility] Comment on above: Ordered: 10/14/2024 Tissue exam Tissue exam Path ology and Cytology Routine Pre-op examination Menorrhagia with regular cycle Abnormal uterine bleeding (AUB) Pelvic pain Ordered: 11/11/2024 [facility] Work Phone: Comment on above: Ordered: 11/11/2024 Immunizations Immunization Date Immunization Notes Care Provider Jennifer almanzar NEGATED: Highlighted row has not occurred!05-05-2023 influenza virus vaccine, unspecified formulation LEONEL ROWE [facility] [place] Payers Date Payer Category Payer Unknown [id number] 2023 Private Health Insurance [id number] 2021 Unknown [id number] 2018 Unknown [id number] 1984 Unknown [id number] 2.16.8 40.1.637319.3.579.2.173 1984 Unknown [id number] 2.16.84 0.1.868176.3.579.2.593 1984 Unknown [id number] 2.16.84 0.1.392194.3.579.2.593 1984 Unknown [id number] 2.16.84 0.1.624941.3.579.2.593 1984 Unknown [id number] 2.16.8 40.1.597944.3.579.2.727 1984 Unknown [id number] 2.16.8 40.1.292422.3.579.2.727 1984 Unknown [id number] 2.16.8 40.1.276345.3.579.2.727 1984 Unknown [id number] 2.16.8 40.1.840431.3.579.2.727 1984 Unknown [id number] 2.16.8 40.1.880834.3.579.2.727 1984 Unknown [id number] 2.16.8 40.1.406919.3.579.2.727 1984 Unknown [id number] 2.16.8 40.1.396855.3.579.2 1984 Unknown [id number] 2.16.8 40.1.744476.3.579.2. 1984 Unknown [id number] 2.16.8 40.1.418463.3.579.2 1984 Unknown [id number] 2.16.8 40.1.892637.3.579.2 1984 Unknown [id number] 2.16.8 40.1.506678.3.579.2 1984 Unknown [id number] 2.16.8 40.1.156100.3.579.2 1984 Unknown [id number] 2.16.8 40.1.870739.3.579.2 1984 Unknown [id number] 2.16.8 40.1.774054.3.579.2 1984 Unknown [id number] 2.16.8 40.1.926587.3.579.2 1984 Unknown [id number] 2.16.8 40.1.578290.3.579.2 1984 Unknown [id number] 2.16.8 40.1.338611.3.579.2 1984 Unknown [id number] 2.16.8 40.1.199213.3.579.2 1984 Unknown [id number] 2.16.8 40.1.270262.3.579.2 1984 Unknown [id number] 2.16.8 40.1.854137.3.579.2.72 1984 Unknown [id number] 2.16.8 40.1.560526.3.579.2.1259 1984 Unknown [id number] 2.16.8 40.1.985459.3.579.2.1259 1984 Unknown [id number] 2.16.8 40.1.391174.3.579.2.9 1984 Unknown [id number] 2.16.84 0.1.014220.3.579.2.9 1984 Unknown [id number] 2.16.84 0.1.318199.3.579.2.9 1984 Unknown [id number] 2.16.8 40.1.112060.3.579.2.727 1984 Unknown [id number] 2.16.8 40.1.541412.3.579.2.727 1984 Unknown [id number] 2.16.8 40.1.124352.3.579.2.727 1959 Self-pay Social History Date Type Detail Facility Tobacco smoking status Never smoker [facility] Start: 04-15-2023 End: 08-04-2024 Sex Assigned At Female [facility] Tobacco smoking status No Smokin g Status Entered [facility] Tobacco smoking status [facility] Start: 11-04-2022 End: 08-06-2023 Tobacco smoking status Never smoked tobacco (finding) [facility] Tobacco smoking status Never [facility] Start: 08-06-2023 Tobacco use and exposure Smokeless tobacco non-user [facility] Start: 08-06-2023 End: 11-11-2024 Alcoholic beverage intake Current drinker of alcohol (finding) [facility] Start: 08-06-2023 End: 08-04-2024 Alcoholic beverage intake [facility] How often to you hav e a drink containing alcohol? Monthly or less [facility] How many standard drinks containing alcohol do you have on a typical day? 1 or 2 [facility] How often do you hav e 6 or more drinks on 1 occasion? Never [facility] Start: 04-15-2023 Alcohol Comment Caffeine intak e: 1-2 cups per day [facility] Start: 1984 Sex assigned at Not on file [facility] Start: 07-12-2009 Sex Female (finding) [facility] Functional Status Date Assessment Result Facility 02-22-2024 Functional Status N/A [facility] Clinical Notes 02-16-2024 to 11-11-2024 Taylor Chaney - 11/11/2024 10:30 AM Dolly Granados LPN - 10/14/2024 9:50 AM Charles Rowe MD - 09/10/2024 11:30 AM EDT Note Date & Type Note Facility 11-11-2024 History of Present illness Narrative Associated Order(s): Endometrial biopsy Post-Procedure Diagnose(s): Pre-op examination; Menorrhagia with regular cycle; Pelvic pain; Abnormal uterine bleeding (AUB) Reason for Appointment: Patient ID: Jyoti Parks is a 39 y.o. female who presents for Pre-op Visit and EMBX Patient presents today for a Pre Op/Endometrial Biopsy appointment. Patient is scheduled to undergo Endometrial Ablation with Sosa on 12-10-[address] Jolly at [facility]. appointment. MEDICATIONS Current Outpatient Medications Medication [...] nursing note reviewed. Exam conducted with a railroad wheels and axle inspector present. Vitals: Estimated body mass index is 21.77 kg/m as calculated from the following: Height as [...] of abnormal uterine bleeding, menorrhagia and pelvic pain. I have discussed conservative management vs. surgical management with the patient in detail and patient desires surgical management at this time. Patient will undergo Endometrial Ablation with Sosa on . Surgical consents were signed, mmc was reviewed, and patient is to proceed to [facility] OR. Follow Up: Patient is to follow up between 1-2 weeks post operative to assess proper healing and recovery from procedure. Documented by Sweta Granados LPN on behalf of: Kobi Jolly DO documented in this encounter [facility] 10-14-2024 History of Present illness Narrative Reason for Appointment: Patient ID: Jyoti Parks is a 39 y.o. female who presents for Pelvic Pain Patient presents today for Consult appointment. MEDICATIONS Current Outpatient Medications Medication Instructions [...] SYSTEMS Review of Systems: Review of Systems Constitutional: Negative. HENT: Negative. Eyes: Negative. Respiratory: Negative. Cardiovascular: Negative. Gastrointestinal: Negative. Genitourinary: Positive for pelvic pain. Musculoskeletal: Negative. Skin: Negative. Neurological: Negative. All other systems reviewed and are negative. Hematological: Negative. Endocrine: Negative. Allergic/Immunologic: Negative. OBJECTIVE Objective: Physical Exam Constitutional: Appearance: Normal [...] nursing note reviewed. Exam conducted with a railroad wheels and axle inspector present. Vitals: Estimated body mass index is 21.77 kg/m as calculated from the following: Height as of 08/04/24: 5' 2 . Weight as of this encounter: 119 lb. BP: 114/86 Patient's last menstrual period was 09/23/2024 (approximate). ASSESSMENT & PLAN ICD-10-CM 1. Pelvic pain in female R10.2 SURESWAB(R) ADVANCED VAGINITIS PLUS, TMA CHLAMYDIA TRACHOMATIS (GENITO/STI) Neisseria gonorrhea DNA probe, direct POCT urinalysis dipstick manually resulted POCT , urine manually resulted Patient presents to office today to discuss pelvic pain. Discussed management with hormones (IUD) or surgical management with Endometrial Ablation as patients partner has a vasectomy. Patient will have labs drawn and ultrasound obtained. Patient desires to proceed to OR for ablation. Patient to reschedule Pre-op/Endometrial Bx. Documented by Sweta Granados LPN on behalf of: Kobi Jolly DO documented in this encounter [facility] 10-05-2024 Hospital Discharge instructions Patient Education 10/05/2024 09:38:58 EU - Cystoscopy Discharge Instructions (CUSTOM) Cystoscopy Voiding after the procedure: there may be some pain, burning, urgency, frequency and blood tinged urine following the procedure. These symptoms usually resolve within 2-5 days. Drink the amount of fluid it takes to keep the urine pink to yellow or clear in color. Drinking enough water and fluids will help to ease any discomfort after your procedure. If you are having problems that seem out of the ordinary, please call. If unable to contact your physician and you feel it is an emergency, go to the nearest emergency room or call 911 Diet you may resume your normal diet. Activity you may resume your normal activities Call if you have a fever over 100 degrees. Follow Up Care 09/27/2024 10:12:40 With:Raul CERDA Address: [address] [place] [id number] Business (1) When: Unknown Comments:Call for any problems. [facility] 10-05-2024 Note Patient Education Custom Cystoscopy ??? Voiding after the procedure: there may be some pain, burning, urgency, frequency and blood tinged urine following the procedure. These symptoms usually resolve within 2-5 days. Drink the amount of fluid it takes to keep the urine pink to yellow or clear in color. Drinking enough water and fluids will help to ease any discomfort after your procedure. ??? If you are having problems that seem out of the ordinary, please call. ??? If unable to contact your physician and you feel it is an emergency, go to the nearest emergency room or call 911 ??? Diet ??? you may resume your normal diet. ??? Activity ??? you may resume your normal activities ??? Call if you have a fever over 100 degrees. [facility] 09-27-2024 Hospital Discharge instructions Patient Education 09/27/2024 09:44:36 Cystoscopy Cystoscopy Cystoscopy is a procedure that is used to help diagnose and sometimes treat conditions that affect the lower urinary tract. The lower urinary tract includes the bladder and the urethra. The urethra is the tube that drains urine from the bladder. Cystoscopy is done using a thin, tube-shaped instrument with a light and camera at the end (cystoscope). The cystoscope may be hard or flexible, depending on the goal of the procedure. The cystoscope is inserted through the urethra, into the bladder. Cystoscopy may be recommended if you have: Urinary tract infections that keep coming back. Blood in the urine (hematuria). An inability to control when you urinate (urinary incontinence) or an overactive bladder. Unusual cells found in a urine sample. A blockage in the urethra, such as a urinary stone. Painful urination. An abnormality in the bladder found during an intravenous pyelogram (IVP) or CT scan. Cystoscopy may also be done to remove a sample of tissue to be examined under a microscope (biopsy). Tell a health care provider about: Any allergies you have. All medicines you are taking, including vitamins, herbs, eye drops, creams, and yrts-pqf-hfsmnza medicines. Any problems you or family members have had with anesthetic medicines. Any blood disorders you have. Any surgeries you have had. Any medical conditions you have. Whether you are or may be . What are the risks? Generally, this is a safe procedure. However, problems may occur, including: Infection. Bleeding. Allergic reactions to medicines. Damage to other structures or organs. What happens before the procedure? Medicines Ask your health care provider about: Changing or stopping your regular medicines. This is especially important if you are taking diabetes medicines or blood thinners. Taking medicines such as aspirin and ibuprofen. These medicines can thin your blood. Do not take these medicines unless your health care provider tells you to take them. Taking zodr-gdw-oewhakn medicines, vitamins, herbs, and supplements. Tests You may have an exam or testing, such as: X-rays of the bladder, urethra, or kidneys. CT scan of the abdomen or pelvis. Urine tests to check for signs of infection. General instructions Follow instructions from your health care provider about eating or drinking restrictions. Ask your health care provider what steps will be taken to help prevent infection. These steps may include: ?Washing skin with a germ-killing soap. ?Taking antibiotic medicine. Plan to have a responsible adult take you home from the hospital or clinic. What happens during the procedure? You will be given one or more of the following: ?A medicine to help you relax (sedative). ?A medicine to numb the area (local anesthetic). The area around the opening of your urethra will be cleaned. The cystoscope will be passed through your urethra into your bladder. Germ-free (sterile) fluid will flow through the cystoscope to fill your bladder. The fluid will stretch your bladder so that your health care provider can clearly examine your bladder tobias. Your doctor will look at the urethra and bladder. Your doctor may take a biopsy or remove stones. The cystoscope will be removed, and your bladder will be emptied. The procedure may vary among health care providers and hospitals. What can I expect after the procedure? After the procedure, it is common to have: Some soreness or pain in your abdomen and urethra. Urinary symptoms. These include: ?Mild pain or burning when you urinate. Pain should stop within a few minutes after you urinate. This may last for up to 1 week. ?A small amount of blood in your urine for several days. ?Feeling like you need to urinate but producing only a small amount of urine. Follow these instructions at home: Medicines Take jeno-lsd-edsfmde and prescription medicines only as told by your health care provider. If you were prescribed an antibiotic medicine, take it as told by your health care provider. Do not stop taking the antibiotic even if you start to feel better. General instructions Return to your normal activities as told by your health care provider. Ask your health care provider what activities are safe for you. If you were given a sedative during the procedure, it can affect you for several hours. Do not drive or operate machinery until your health care provider says that it is safe. Watch for any blood in your urine. If the amount of blood in your urine increases, call your health care provider. Follow instructions from your health care provider about eating or drinking restrictions. If a tissue sample was removed for testing (biopsy) during your procedure, it is up to you to get your test results. Ask your health care provider, or the department that is doing the test, when your results will be ready. Drink enough fluid to keep your urine pale yellow. Keep all follow-up visits. This is important. Contact a health care provider if: You have pain that gets worse or does not get better with medicine, especially pain when you urinate. You have trouble urinating. You have more blood in your urine. Get help right away if: You have blood clots in your urine. You have abdominal pain. You have a fever or chills. You are unable to urinate. Summary Cystoscopy is a procedure that is used to help diagnose and sometimes treat conditions that affect the lower urinary tract. Cystoscopy is done using a thin, tube-shaped instrument with a light and camera at the end. After the procedure, it is common to have some soreness or pain in your abdomen and urethra. Watch for any blood in your urine. If the amount of blood in your urine increases, call your health care provider. If you were prescribed an antibiotic medicine, take it as told by your health care provider. Do not stop taking the antibiotic even if you start to feel better. This information is not intended to replace advice given to you by your health care provider. Make sure you discuss any questions you have with your health care provider. Document Revised: 11/28/2021 Document Reviewed: 10/27/2020 [employer] Patient Education 2023 [employer]. 09/27/2024 09:35:52 Hematuria, Adult Hematuria, Adult Hematuria is blood in the urine. Blood may be visible in the urine, or it may be identified with a test. This condition can be caused by infections of the bladder, urethra, kidney, or prostate. Other possible causes include: Kidney stones. Cancer of the urinary tract. Too much calcium in the urine. Conditions that are passed from parent to child (inherited conditions). Exercise that requires a lot of energy. Infections can usually be treated with medicine, and a kidney stone usually will pass through your urine. If neither of these is the cause of your hematuria, more tests may be needed to identify the cause of your symptoms. It is very important to tell your health care provider about any blood in your urine, even if it is painless or the blood stops without treatment. Blood in the urine, when it happens and then stops and then happens again, can be a symptom of a very serious condition, including cancer. There is no pain in the initial stages of many urinary cancers. Follow these instructions at home: Medicines Take ejmh-tzh-qiobsqp and prescription medicines only as told by your health care provider. If you were prescribed an antibiotic medicine, take it as told by your health care provider. Do not stop taking the antibiotic even if you start to feel better. Eating and drinking Drink enough fluid to keep your urine pale yellow. It is recommended that you drink 3 4 quarts (2.8 3.8 L) a day. If you have been diagnosed with an infection, drinking cranberry juice in addition to large amounts of water is recommended. Avoid caffeine, tea, and carbonated beverages. These tend to irritate the bladder. Avoid alcohol because it may irritate the prostate (in males). General instructions If you have been diagnosed with a kidney stone, follow your health care provider's instructions about straining your urine to catch the stone. Empty your bladder often. Avoid holding urine for long periods of time. If you are female: ?After a bowel movement, wipe from front to back and use each piece of toilet paper only once. ?Empty your bladder before and after sex. Pay attention to any changes in your symptoms. Tell your health care provider about any changes or any new symptoms. It is up to you to get the results of any tests. Ask your health care provider, or the department that is doing the test, when your results will be ready. Keep all follow-up visits. This is important. Contact a health care provider if: You develop back pain. You have a fever or chills. You have nausea or vomiting. Your symptoms do not improve after 3 days. Your symptoms get worse. Get help right away if: You develop severe vomiting and are unable to take medicine without vomiting. You develop severe pain in your back or abdomen even though you are taking medicine. You pass a large amount of blood in your urine. You pass blood clots in your urine. You feel very weak or like you might faint. You faint. Summary Hematuria is blood in the urine. It has many possible causes. It is very important that you tell your health care provider about any blood in your urine, even if it is painless or the blood stops without treatment. Take niyi-mhl-jgwmshw and prescription medicines only as told by your health care provider. Drink enough fluid to keep your urine pale yellow. This information is not intended to replace advice given to you by your health care provider. Make sure you discuss any questions you have with your health care provider. Document Revised: 11/15/2020 Document Reviewed: 11/15/2020 [employer] Patient Education 2023 [employer]. Follow Up Care 09/06/2024 16:06:13 With:LEXIS JUAREZ, Raul Olvera, URL Address: [facility] [address] , [place] [address] [phone] When: Unknown Comments:sched cysto [facility] 09-27-2024 Note Patient Education Urology Cystoscopy Cystoscopy is a procedure that is used to help diagnose and sometimes treat conditions that affect the lower urinary tract. The lower urinary tract includes the bladder and the urethra. The urethra is the tube that drains urine from the bladder. Cystoscopy is done using a thin, tube-shaped instrument with a light and camera at the end (cystoscope). The cystoscope may be hard or flexible, depending on the goal of the procedure. The cystoscope is inserted through the urethra, into the bladder. Cystoscopy may be recommended if you have: ??? Urinary tract infections that keep coming back. ??? Blood in the urine (hematuria). ??? An inability to control when you urinate (urinary incontinence) or an overactive bladder. ??? Unusual cells found in a urine sample. ??? A blockage in the urethra, such as a urinary stone. ??? Painful urination. ??? An abnormality in the bladder found during an intravenous pyelogram (IVP) or CT scan. Cystoscopy may also be done to remove a sample of tissue to be examined under a microscope (biopsy). Tell a health care provider about: ??? Any allergies you have. ??? All medicines you are taking, including vitamins, herbs, eye drops, creams, and ivbd-ixl-tbazepw medicines. ??? Any problems you or family members have had with anesthetic medicines. ??? Any blood disorders you have. ??? Any surgeries you have had. ??? Any medical conditions you have. ??? Whether you are or may be . What are the risks? Generally, this is a safe procedure. However, problems may occur, including: ??? Infection. ??? Bleeding. ??? Allergic reactions to medicines. ??? Damage to other structures or organs. What happens before the procedure? Medicines Ask your health care provider about: ??? Changing or stopping your regular medicines. This is especially important if you are taking diabetes medicines or blood thinners. ??? Taking medicines such as aspirin and ibuprofen. These medicines can thin your blood. Do not take these medicines unless your health care provider tells you to take them. ??? Taking nrfk-zkm-xdzlcvw medicines, vitamins, herbs, and supplements. Tests You may have an exam or testing, such as: ??? X-rays of the bladder, urethra, or kidneys. ??? CT scan of the abdomen or pelvis. ??? Urine tests to check for signs of infection. General instructions ??? Follow instructions from your health care provider about eating or drinking restrictions. ??? Ask your health care provider what steps will be taken to help prevent infection. These steps may include: ? Washing skin with a germ-killing soap. ? Taking antibiotic medicine. ??? Plan to have a responsible adult take you home from the hospital or clinic. What happens during the procedure? You will be given one or more of the following: ? A medicine to help you relax (sedative). ? A medicine to numb the area (local anesthetic). ??? The area around the opening of your urethra will be cleaned. ??? The cystoscope will be passed through your urethra into your bladder. ??? Germ-free (sterile) fluid will flow through the cystoscope to fill your bladder. The fluid will stretch your bladder so that your health care provider can clearly examine your bladder tobias. ??? Your doctor will look at the urethra and bladder. Your doctor may take a biopsy or remove stones. ??? The cystoscope will be removed, and your bladder will be emptied. The procedure may vary among health care providers and hospitals. What can I expect after the procedure? After the procedure, it is common to have: ??? Some soreness or pain in your abdomen and urethra. ??? Urinary symptoms. These include: ? Mild pain or burning when you urinate. Pain should stop within a few minutes after you urinate. This may last for up to 1 week. ? A small amount of blood in your urine for several days. ? Feeling like you need to urinate but producing only a small amount of urine. Follow these instructions at home: Medicines ??? Take qluw-agk-bjnjgqa and prescription medicines only as told by your health care provider. ??? If you were prescribed an antibiotic medicine, take it as told by your health care provider. Do not stop taking the antibiotic even if you start to feel better. General instructions ??? Return to your normal activities as told by your health care provider. Ask your health care provider what activities are safe for you. ??? If you were given a sedative during the procedure, it can affect you for several hours. Do not drive or operate machinery until your health care provider says that it is safe. ??? Watch for any blood in your urine. If the amount of blood in your urine increases, call your health care provider. ??? Follow instructions from your health care provider about eating or drinking restrictions. ??? If a tissue sample was removed for testing (biopsy) during your (more content not included)... [facility] 09-10-2024 History of Present illness Narrative Jyoti Parks is a 38 y.o. female No ref. provider found presents with chief complaint of No chief complaint on file. HPI: Interim History 08/2024 Followup visit on 09/10/2024, She is on levothyroxine 50 mcg daily. Labs on 07/2024 TSH 2.59, free T4 within normal limits at 0.88 (0.58-1.64), free T3 3.1 (2-4.4), vit d 22 on MVI. we saw her with tele Interim History 08/2023 Followup visit on 09/05/2023, She is on levothyroxine 50 mcg daily. Labs on 07/2023 TSH 3.31, free T4 within normal limits at 0.91 (0.58-1.64), free T3 3.1 (2-4.4), vit d 33 on MVI. Interim History 08/2022. Followup visit on 09/23/2022, She is on levothyroxine 50 mcg daily. Labs on 08/2022 TSH 2.8, free T4 within normal limits at 1.03 (0.58-1.64), free T3 on the low side at 2.8 (2-4.4), thinks that her snoring is related to her goiter Interim History 08/2021. Followup visit on 09/27/2021, She is on levothyroxine 50 mcg daily. Labs: TSH 2.58, free T4 within normal limits at 1.04 (0.58-1.64), free T3 on the low side at 3.6 (2-4.4), VIT D 37. US MNG larget noduel 11mm will watch Interim History 08/2020. Followup visit on 09/19/2020, She is on levothyroxine 50 mcg daily. Labs: TSH 2.15, free T4 within normal limits at 1.24 (0.78-2.19), free T3 on the low side at 2.9 (2.77-5.27). Interim History 07/2019. Followup visit on 08/05/2019 with telemedicine through [employer]. She is on levothyroxine 50 mcg daily. Labs: TSH 2.05, free T4 within normal limits at 1.16 (0.78-2.19), free T3 on the low side at 2.55 (2.77-5.27). Vitamin D within normal limits, 34. She had new ultrasound: Right lobe 5.1 x 1.3 x 2.1 cm with 8 x 5 x 6 mm solid, hypoechoic, wider than taller. Left lobe 5.2 x 1.6 x 1.7 cm. No focal nodules. Interim History 08/16: Followup visit on 08/05/2018 for hypothyroidism. Labs done: TSH 0.713, free T4 (0.78-2.9), free T3 2.09 (2.7-5.7). She is on levothyroxine 50 mcg daily. She feels better after we increased her dose last visit. Interim History: 02/15 Followup visit on 02/03/18 lab showing undercorrection, TSH 6.05, free T4 0.61 (0.78-2.5), free T4 2.34 (2.77-5.77), vitamin D 33. Ultrasound right lobe 4.9 x 3.1 x 1.6, with isoechoic 7 mm nodules, left lobe 4.4 x 1.9 x 1.7. She is doing levothyroxine 50 mcg 5 days a week. HPI: 12/16 New patient came by herself for management of hypothyroidism. She has it for almost 5 years. She was on 25, increased by 50. During her last year increased it to 75, and got until November 17, 2017. Lab found hyper, TSH 0.06, free T4 2.82 (0.78-2.19), free T3 8.91 (2.77-5.7). Saw her employee communications intern, cut the dose to 50 from 75, and told her you need to see teletypesetter soon. Sister has hypothyroidism also, and taking thyroid medication. She has 2 years old boy and 3 months boy now in . SUBJECTIVE: MEDICATIONS: Current Outpatient Medications Medication Instructions levothyroxine (SYNTHROID, LEVOXYL) 50 mcg, Oral, Daily before breakfast promethazine (PHENERGAN) 25 mg Rimegepant Sulfate (Nurtec) 75 MG tablet dispersible 1 po daily prn migraine max 2 days per week tiZANidine (ZANAFLEX) 4 mg, Oral, Nightly, 1/2-1 po q hs ALLERGIES: Allergies Allergen Reactions Atogepant Swelling Amoxicillin Nausea [...] Nausea Only and Rash Other Reaction(s): Vomiting Past Medical History: Diagnosis Date Autoimmune thyroiditis BMI 21.0-21.9, adult Headache Hypothyroidism Migraines Nontoxic goiter Sinusitis Vitamin D deficiency Past Surgical History: Procedure Laterality Date OOPHORECTOMY Right OTHER SURGICAL HISTORY r/o RT fallopian tube due to ectopic TONSILLECTOMY age 25 REVIEW OF SYMPTOMS: 14 POINT OF SYSTEM REVIEWED AND NEGATIVE OBJECTIVE: Visit Vitals Smoking Status Never ASSESSMENT AND PLAN: Assessment/Plan Diagnoses and all orders for this visit: Essie's disease - levothyroxine (Synthroid, Levoxyl) 50 MCG tablet; Take 1 tablet (50 mcg) by mouth Daily before meals - T3, free; Future - T4, free; Future - TSH; Future We will continue with her levothyroxine 50 mcg daily, TFT within normal limits in July/2024. Thyroid nodule Had nodule 11 mm in lobe we will watch no need for biopsy. Follow up in about 1 year (around 09/10/2025). documented in this encounter [facility] 08-31-2024 Evaluation + Plan note Extrac anne marie from: Title:ED Note Author:Mj Shell DO Date: Acute UTI (N39.0: Urinary tr act infection, site not specified) Hematuria (R31.9: Hematuria, unspecified) Orders: cephalexin, 500 mg = 1 cap(s), Oral, q6hr, X 5 day(s), # 20 cap(s), Refills(s) 0, Pharmacy: [facility], [facility], cm, 08/31/24 10:18:00 EDT, Height/Length Dosing, 58.7, kg, 08/31/24 10:18:00 EDT, Weight Dosing Basic Metabolic Panel CBC w/ Auto Diff CT Abdomen/Pelvis w/o Contrast eGFR Extra Blue Tube Extra SST Tube UA with Cult Rflx Urine Culture Future Appointments Appointment Date:12/02/2024 08:20:00 AM Scheduled Provider:Uri Gibbs MD Location:[facility] Appointment Type: Preventative Visit Diagnostic Tests Pending * Urine Culture 08/31/24 Future Scheduled Tests Laboratory* Urinalysis with Micro 02/24/24 * Urine Culture 02/24/24 Radiology* MA Mamm Diag w/CAD if perf and 3D RT 07/26/24 [facility] 06-03-2025 Hospital Discharge instructions Patient Education 08/31/2024 11:44:36 Urinary Tract Infection, Adult Urinary Tract Infection, Adult A urinary tract infection (UTI) is an infection of any part of the urinary tract. The urinary tractincludes the kidneys, ureters, bladder, and urethra. These organs make, store, and get rid of urinein the body. An upper UTI affects the ureters and kidneys. A lower UTI affects the bladder and urethra. What are the causes? Most urinary tract infections are caused by bacteria in your genital area around your urethra, where urine leaves your body. These bacteria grow and cause inflammation of your urinary tract. What increases the risk? You are more likely to develop this condition if: You have a urinary catheter that stays in place. You are not able to control when you urinate or have a bowel movement (incontinence). You are female and you: ?Use a spermicide or diaphragm for control. ?Have low estrogen levels. ?Are . You have certain genes that increase your risk. You are sexually active. You take antibiotic medicines. You have a condition that causes your flow of urine to slow down, such as: ?An enlarged prostate, if you are male. ?Blockage in your urethra. ?A kidney stone. ?A nerve condition that affects your bladder control (neurogenic bladder). ?Not getting enough to drink, or not urinating often. You have certain medical conditions, such as: ?Diabetes. ?A weak disease-fighting system (immunesystem). ?Sickle cell disease. ?Gout. ?Spinal cord injury. What are the signs or symptoms? Symptoms of this condition include: Needing to urinate right away (urgency). Frequent urination. This may include small amounts of urine each time you urinate. Pain or burning with urination. Blood in the urine. Urine that smells bad or unusual. Trouble urinating. Cloudy urine. Vaginal discharge, if you are female. Pain in the abdomen or the lower back. You may also have: Vomiting or a decreased appetite. Confusion. Irritability or tiredness. A fever or chills. Diarrhea. The first symptom in older adults may be confusion. In some cases, they may not have any symptoms until the infection has worsened. How is this diagnosed? This condition is diagnosed based on your medical history and a physical exam. You may also have other tests, including: Urine tests. Blood tests. Tests for STIs (sexually transmitted infections). If you have had more than one UTI, a cystoscopy or imaging studies may be done to determine the cause of the infections. How is this treated? Treatment for this condition includes: Antibiotic medicine. Uult-tok-lcfcovm medicines to treat discomfort. Drinking enough water to stay hydrated. If you have frequent infections or have other conditions such as a kidney stone, you may need to see a health care provider who specializes in the urinary tract (urologist). In rare cases, urinary tract infections can cause sepsis. Sepsis is a life- threatening condition that occurs when the body responds to an infection. Sepsis is treated in the hospital with IV antibiotics, fluids, and other medicines. Follow these instructions at home: Medicines Take lxqc-boj-lhzllhg and prescription medicines only as told by your health care provider. If you were prescribed an antibiotic medicine, take it as told by your health care provider. Do notstop using the antibiotic even if you start to feel better. General instructions Make sure you: ?Empty your bladder often and completely. Do not hold urine for long periods of time. ?Empty your bladder after sex. ?Wipe from front to back after urinating or having a bowel movement if you are female. Use each tissue only one time when you wipe. Drink enough fluid to keep your urine pale yellow. Keep all follow-up visits. This is important. Contact a health care provider if: Your symptoms do not get better after 1 2 days. Your symptoms go away and then return. Get help right away if: You have severe pain in your back or your lower abdomen. You have a fever or chills. You have nausea or vomiting. Summary A urinary tract infection (UTI) is an infection of any part of the urinary tract, which includes the kidneys, ureters, bladder, and urethra. Most urinary tract infections are caused by bacteria in your genital area. Treatment for this condition often includes antibiotic medicines. If you were prescribed an antibiotic medicine, take it as told by your health care provider. Do notstop using the antibiotic even if you start to feel better. Keep all follow-up visits. This is important. This information is not intended to replace advice given to you by your health care provider. Make sure you discuss any questions you have with your health care provider. Document Revised: 10/22/2020 Document Reviewed: 10/27/2020 [employer] Patient Education 2023 [employer]. 08/31/2024 11:44:36 Hematuria, Adult Hematuria, Adult Hematuria is blood in the urine. Blood may be visible in the urine, or it may be identified with a test. This condition can be caused by infections of the bladder, urethra, kidney, or prostate. Otherpossible causes include: Kidney stones. Cancer of the urinary tract. Too much calcium in the urine. Conditions that are passed from parent to child (inherited conditions). Exercise that requires a lot of energy. Infections can usually be treated with medicine, and a kidney stone usually will pass through your urine. If neither of these is the cause of your hematuria, more tests may be needed to identify the cause of your symptoms. It is very important to tell your health care provider about any blood in your urine, even if it ispainless or the blood stops without treatment. Blood in the urine, when it happens and then stops and then happens again, can be a symptom of a very serious condition, including cancer. There is no pain in the initial stages of many urinary cancers. Follow these instructions at home: Medicines Take ysre-dyb-tfyhkld and prescription medicines only as told by your health care provider. If you were prescribed an antibiotic medicine, take it as told by your health care provider. Do notstop taking the antibiotic even if you start to feel better. Eating and drinking Drink enough fluid to keep your urine pale yellow. It is recommended that you drink 3 4 quarts (2.83.8 L) a day. If you have been diagnosed with an infection, drinking cranberry juice in addition tolarge amounts of water is recommended. Avoid caffeine, tea, and carbonated beverages. These tend to irritate the bladder. Avoid alcohol because it may irritate the prostate (in males). General instructions If you have been diagnosed with a kidney stone, follow your health care provider's instructions about straining your urine to catch the stone. Empty your bladder often. Avoid holding urine for long periods of time. If you are female: ?After a bowel movement, wipe from front to back and use each piece of toilet paper only once. ?Empty your bladder before and after sex. Pay attention to any changes in your symptoms. Tell your health care provider about any changes or any new symptoms. It is up to you to get the results of any tests. Ask your health care provider, or the department that is doing the test, when your results will be ready. Keep all follow-up visits. This is important. Contact a health care provider if: You develop back pain. You have a fever or chills. You have nausea or vomiting. Your symptoms do not improve after 3 days. Your symptoms get worse. Get help right away if: You develop severe vomiting and are unable to take medicine without vomiting. You develop severe pain in your back or abdomen even though you are taking medicine. You pass a large amount of blood in your urine. You pass blood clots in your urine. You feel very weak or like you might faint. You faint. Summary Hematuria is blood in the urine. It has many possible causes. It is very important that you tell your health care provider about any blood in your urine, even ifit is painless or the blood stops without treatment. Take nycd-ouy-rywinna and prescription medicines only as told by your health care provider. Drink enough fluid to keep your urine pale yellow. This information is not intended to replace advice given to you by your health care provider. Make sure you discuss any questions you have with your health care provider. Document Revised: 11/15/2020 Document Reviewed: 11/15/2020 Elsevier Patient Education 2023 [employer]. Follow Up Care 08/31/2024 10:08:37 With:Dona Costello Address:Unknown When:09/03/2024 11:42:12 Comments:Follow-up if the blood in your urine continues after treatment for the urinary tract infection. Recommend repeat urinalysis in 3 to 6 weeks to see if the blood is cleared.Call Dr for diagnosis based follow up With:Uri Gibbs Address: [address] [place] [address]- Business (2) When:09/03/2024 11:41:54 Comments:Call the office of your primary care doctor to arrange for follow-up within the above-stated timeframe. Follow-up with your primary care doctor about this ED visit. You should review your labs, imaging, and diagnoses from this ED visit with your primary care physician. There are occasionally non-emergent findings that require additional follow-up after your ED visit. If you were prescribed medications you should discuss possible side-effects and drug interactions with your pharmacist. Call 911 or go to the nearest Emergency Department if you develop any new or worsening symptoms. [facility] 06-03-2025 NoteED Patient Education Note Obstetrics and Gynecology Urinary Tract Infection, Adult A urinary tract infection (UTI) is an infection of any part of the urinary tract. The urinary tractincludes the kidneys, ureters, bladder, and urethra. These organs make, store, and get rid of urinein the body. An upper UTI affects the ureters and kidneys. A lower UTI affects the bladder and urethra. What are the causes? Most urinary tract infections are caused by bacteria in your genital area around your urethra, where urine leaves your body. These bacteria grow and cause inflammation of your urinary tract. What increases the risk? You are more likely to develop this condition if: ??? You have a urinary catheter that stays in place. ??? You are not able to control when you urinate or have a bowel movement (incontinence). ??? You are female and you: ? Use a spermicide or diaphragm for control. ? Have low estrogen levels. ? Are . ??? You have certain genes that increase your risk. ??? You are sexually active. ??? You take antibiotic medicines. ??? You have a condition that causes your flow of urine to slow down, such as: ? An enlarged prostate, if you are male. ? Blockage in your urethra. ? A kidney stone. ? A nerve condition that affects your bladder control (neurogenic bladder). ? Not getting enough to drink, or not urinating often. ??? You have certain medical conditions, such as: ? Diabetes. ? A weak disease-fighting system (immunesystem). ? Sickle cell disease. ? Gout. ? Spinal cord injury. What are the signs or symptoms? Symptoms of this condition include: ??? Needing to urinate right away (urgency). ??? Frequent urination. This may include small amounts of urine each time you urinate. ??? Pain or burning with urination. ??? Blood in the urine. ??? Urine that smells bad or unusual. ??? Trouble urinating. ??? Cloudy urine. ??? Vaginal discharge, if you are female. ??? Pain in the abdomen or the lower back. You may also have: ??? Vomiting or a decreased appetite. ??? Confusion. ??? Irritability or tiredness. ??? A fever or chills. ??? Diarrhea. The first symptom in older adults may be confusion. In some cases, they may not have any symptoms until the infection has worsened. How is this diagnosed? This condition is diagnosed based on your medical history and a physical exam. You may also have other tests, including: ??? Urine tests. ??? Blood tests. ??? Tests for STIs (sexually transmitted infections). If you have had more than one UTI, a cystoscopy or imaging studies may be done to determine the cause of the infections. How is this treated? Treatment for this condition includes: ??? Antibiotic medicine. ??? Fpmn-tpp-yurkcnk medicines to treat discomfort. ??? Drinking enough water to stay hydrated. If you have frequent infections or have other conditions such as a kidney stone, you may need to see a health care provider who specializes in the urinary tract (urologist). In rare cases, urinary tract infections can cause sepsis. Sepsis is a life- threatening condition that occurs when the body responds to an infection. Sepsis is treated in the hospital with IV antibiotics, fluids, and other medicines. Follow these instructions at home: Medicines ??? Take bgum-ita-ibkfpkg and prescription medicines only as told by your health care provider. ??? If you were prescribed an antibiotic medicine, take it as told by your health care provider. Donot stop using the antibiotic even if you start to feel better. General instructions ??? Make sure you: ? Empty your bladder often and completely. Do not hold urine for long periods of time. ? Empty your bladder after sex. ? Wipe from front to back after urinating or having a bowel movement if you are female. Use each tissue only one time when you wipe. ??? Drink enough fluid to keep your urine pale yellow. ??? Keep all follow-up visits. This is important. Contact a health care provider if: ??? Your symptoms do not get better after 1?2 days. ??? Your symptoms go away and then return. Get help right away if: ??? You have severe pain in your back or your lower abdomen. ??? You have a fever or chills. ??? You have nausea or vomiting. Summary ??? A urinary tract infection (UTI) is an infection of any part of the urinary tract, which includes the kidneys, ureters, bladder, and urethra. ??? Most urinary tract infections are caused by bacteria in your genital area. ??? Treatment for this condition often includes antibiotic medicines. ??? If you were prescribed an antibiotic medicine, take it as told by your health care provider. Donot stop using the antibiotic even if you start to feel better. ??? Keep all follow-up visits. This is important. This information is not intended to replace advice given to you by your health care provider. Make emanuel (more content not included)...[facility]11-24-2024 Hospital Discharge instructions Patient Education 02/22/2024 12:56:03 Acute Back Pain, Adult Acute Back Pain, Adult Acute back pain is sudden and usually short-lived. It is often caused by an injury to the muscles and tissues in the back. The injury may result from: A muscle, tendon, or ligament getting overstretched or torn. Ligaments are tissues that connect bones to each other. Lifting something improperly can cause a back strain. Wear and tear (degeneration) of the spinal disks. Spinal disks are circular tissue that provide cushioning between the bones of the spine (vertebrae). Twisting motions, such as while playing sports or doing yard work. A hit to the back. Arthritis. You may have a physical exam, lab tests, and imaging tests to find the cause of your pain. Acute back pain usually goes away with rest and home care. Follow these instructions at home: Managing pain, stiffness, and swelling Take wepp-wgb-fodrnhl and prescription medicines only as told by your health care provider. Treatment may include medicines for pain and inflammation that are taken by mouth or applied to the skin, or muscle relaxants. Your health care provider may recommend applying ice during the first 24 48 hours after your pain starts. To do this: ?Put ice in a plastic bag. ?Place a towel between your skin and the bag. ?Leave the ice on for 20 minutes, 2 3 times a day. ?Remove the ice if your skin turns bright red. This is very important. If you cannot feel pain, heat, or cold, you have a greater risk of damage to the area. If directed, apply heat to the affected area as often as told by your health care provider. Use theheat source that your health care provider recommends, such as a moist heat pack or a heating pad. ?Place a towel between your skin and the heat source. ?Leave the heat on for 20 30 minutes. ?Remove the heat if your skin turns bright red. This is especially important if you are unable to feel pain, heat, or cold. You have a greater risk of getting burned. Activity Do not stay in bed. Staying in bed for more than 1 2 days can delay your recovery. Sit up and stand up straight. Avoid leaning forward when you sit or hunching over when you stand. ?If you work at a desk, sit close to it so you do not need to lean over. Keep your chin tucked in. Keep your neck drawn back, and keep your elbows bent at a 90-degree angle (right angle). ?Sit high and close to the steering wheel when you drive. Add lower back (lumbar) support to your car seat, if needed. Take short walks on even surfaces as soon as you are able. Try to increase the length of time you walk each day. Do not sit, drive, or mink slicer one place for more than 30 minutes at a time. Sitting or standing for long periods of time can put stress on your back. Do not drive or use heavy machinery while taking prescription pain medicine. Use proper lifting techniques. When you bend and lift, use positions that put less stress on your back: ?Bend your knees. ?Keep the load close to your body. ?Avoid twisting. Exercise regularly as told by your health care provider. Exercising helps your back heal faster andhelps prevent back injuries by keeping muscles strong and flexible. Work with a physical therapist to make a safe exercise program, as recommended by your health care provider. Do any exercises as told by your physical therapist. Lifestyle Maintain a healthy weight. Extra weight puts stress on your back and makes it difficult to have good posture. Avoid activities or situations that make you feel anxious or stressed. Stress and anxiety increase muscle tension and can make back pain worse. Learn ways to manage anxiety and stress, such as through exercise. General instructions Sleep on a firm mattress in a comfortable position. Try lying on your side with your knees slightlybent. If you lie on your back, put a pillow under your knees. Keep your head and neck in a straight line with your spine (neutral position) when using electronicequipment like smartphones or pads. To do this: ?Raise your smartphone or pad to look at it instead of bending your head or neck to look down. ?Put the smartphone or pad at the level of your face while looking at the screen. Follow your treatment plan as told by your health care provider. This may include: ?Cognitive or behavioral therapy. ?Acupuncture or massage therapy. ?Meditation or yoga. Contact a health care provider if: You have pain that is not relieved with rest or medicine. You have increasing pain going down into your legs or buttocks. Your pain does not improve after 2 weeks. You have pain at night. You lose weight without trying. You have a fever or chills. You develop nausea or vomiting. You develop abdominal pain. Get help right away if: You develop new bowel or bladder control problems. You have unusual weakness or numbness in your arms or legs. You feel faint. These symptoms may represent a serious problem that is an emergency. Do not wait to see if the symptoms will go away. Get medical help right away. Call your local emergency services (911 in the [place] Do not drive yourself to the hospital. Summary Acute back pain is sudden and usually short-lived. Use proper lifting techniques. When you bend and lift, use positions that put less stress on your back. Take sdbh-kud-cyehawc and prescription medicines only as told by your health care provider, and apply heat or ice as told. This information is not intended to replace advice given to you by your health care provider. Make sure you discuss any questions you have with your health care provider. Document Revised: 06/08/2021 Document Reviewed: 06/08/2021 [employer] Patient Education 2023 [employer]. Follow Up Care 02/22/2024 09:50:05 With:Eric JUAREZ, Uri Leung [facility] Address:Unknown When: Unknown [facility] 11-24-2024 Evaluation + Plan note Future Scheduled Tests Laboratory* Basic Metabolic Panel 02/22/24 * CBC w/ Auto Diff 02/22/24 [facility] 11-24-2024 Evaluation + Plan note Diagnostic Tests Pending * Urine Culture 02/22/24 Future Scheduled Tests Laboratory* Basic Metabolic Panel 02/22/24 * CBC w/ Auto Diff 02/22/24 [facility] 11-24-2024 NotePatient Education Orthopedics Acute Back Pain, Adult Acute back pain is sudden and usually short-lived. It is often caused by an injury to the muscles and tissues in the back. The injury may result from: ??? A muscle, tendon, or ligament getting overstretched or torn. Ligaments are tissues that connectbones to each other. Lifting something improperly can cause a back strain. ??? Wear and tear (degeneration) of the spinal disks. Spinal disks are circular tissue that providecushioning between the bones of the spine (vertebrae). ??? Twisting motions, such as while playing sports or doing yard work. ??? A hit to the back. ??? Arthritis. You may have a physical exam, lab tests, and imaging tests to find the cause of your pain. Acute back pain usually goes away with rest and home care. Follow these instructions at home: Managing pain, stiffness, and swelling ??? Take drcc-evf-ncglhle and prescription medicines only as told by your health care provider. Treatment may include medicines for pain and inflammation that are taken by mouth or applied to the skin, or muscle relaxants. ??? Your health care provider may recommend applying ice during the first 24?48 hours after your pain starts. To do this: ? Put ice in a plastic bag. ? Place a towel between your skin and the bag. ? Leave the ice on for 20 minutes, 2?3 times a day. ? Remove the ice if your skin turns bright red. This is very important. If you cannot feel pain, heat, or cold, you have a greater risk of damage to the area. ??? If directed, apply heat to the affected area as often as told by your health care provider. Usethe heat source that your health care provider recommends, such as a moist heat pack or a heating pad. ? Place a towel between your skin and the heat source. ? Leave the heat on for 20?30 minutes. ? Remove the heat if your skin turns bright red. This is especially important if you are unable to feel pain, heat, or cold. You have a greater risk of getting burned. Activity ??? Do not stay in bed. Staying in bed for more than 1?2 days can delay your recovery. ??? Sit up and stand up straight. Avoid leaning forward when you sit or hunching over when you stand. ? If you work at a desk, sit close to it so you do not need to lean over. Keep your chin tucked in.Keep your neck drawn back, and keep your elbows bent at a 90-degree angle (right angle). ? Sit high and close to the steering wheel when you drive. Add lower back (lumbar) support to your car seat, if needed. ??? Take short walks on even surfaces as soon as you are able. Try to increase the length of time you walk each day. ??? Do not sit, drive, or mink slicer one place for more than 30 minutes at a time. Sitting or standing for long periods of time can put stress on your back. ??? Do not drive or use heavy machinery while taking prescription pain medicine. ??? Use proper lifting techniques. When you bend and lift, use positions that put less stress on your back: ? Bend your knees. ? Keep the load close to your body. ? Avoid twisting. ??? Exercise regularly as told by your health care provider. Exercising helps your back heal fasterand helps prevent back injuries by keeping muscles strong and flexible. ??? Work with a physical therapist to make a safe exercise program, as recommended by your health care provider. Do any exercises as told by your physical therapist. Lifestyle ??? Maintain a healthy weight. Extra weight puts stress on your back and makes it difficult to havegood posture. ??? Avoid activities or situations that make you feel anxious or stressed. Stress and anxiety increase muscle tension and can make back pain worse. Learn ways to manage anxiety and stress, such as through exercise. General instructions ??? Sleep on a firm mattress in a comfortable position. Try lying on your side with your knees slightly bent. If you lie on your back, put a pillow under your knees. ??? Keep your head and neck in a straight line with your spine (neutral position) when using electronic equipment like smartphones or pads. To do this: ? Raise your smartphone or pad to look at it instead of bending your head or neck to look down. ? Put the smartphone or pad at the level of your face while looking at the screen. ??? Follow your treatment plan as told by your health care provider. This may include: ? Cognitive or behavioral therapy. ? Acupuncture or massage therapy. ? Meditation or yoga. Contact a health care provider if: ??? You have pain that is not relieved with rest or medicine. ??? You have increasing pain going down into your legs or buttocks. ??? Your pain does not improve after 2 weeks. ??? You have pain at night. ??? You lose weight without trying. ??? You have a fever or chills. ??? You develop nausea or vomiting. ??? You develop abdominal pain. Get help right away if: ??? You develop new bowel or bladder control problems. ??? You have (more content not included)...[facility]11-19-2024 History of Present illness Narrative* Jeff Parada DO - 02/17/2024 4:45 PM EST Chief Complaint Patient presents with Migraine Subjective Jyoti Parks, 38 y.o., female Patient tried the zanaflex and states that it was effective on her migraine but she is no longer taking due to not having refills. She is worse off of it. It was helping. She is still taking nurtec and it has been effective. She is still having 1-2 migraines a week. She is not having any milder headaches. Pt states that when she gets them they are mainly on the right side. Pt states that she can feel itgradually coming on and states that it will go into her eye. Pt states that it can feel like a stabbing sensation. Pt states that she has nausea and vomiting. She has photo/phonophobia. She will get a throb on that side. Pt denies having tension in her neck. 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 Pt states that she gets decent sleep, she will be in bed from 9-10pm and states that she will get up for work 645am. Pt states that she sleeps through the night, she can get up to use the bathroombut not often. She does not get any aura. No food triggers No neuro deficits with the migraine. No family hx of migraines. The only thing that has worked for her is the Medications tried: nurtec (currently on), qulipta (swelling in eyelids), amitriptyline, sumatriptan, rizatriptan, naratriptan, Tylenol, motrin, ASA Past Medical History: Diagnosis Date BMI 21.0-21.9, adult Headache Hypothyroidism (CMS/HCC) Migraines (CMS/HCC) Sinusitis Past Surgical History: Procedure Laterality Date OTHER SURGICAL HISTORY r/o RT fallopian tube due to ectopic TONSILLECTOMY age 25 Family History Problem Relation Name Age of Onset Heart disease Mother Hypertension Father Hyperlipidemia Father Diabetes Sister Hypertension Sister Hyperlipidemia Sister Social History Tobacco Use Smoking status: Never Smokeless tobacco: Never Substance Use Topics Alcohol use: Yes Alcohol/week: 1.0 standard drink of alcohol Types: 1 Standard drinks or equivalent per week Comment: Caffeine intake: 1-2 cups per day Allergies: Atogepant, Amoxicillin, Amoxicillin-pot clavulanate, Cyclosporine, Egg-derived products,Fexofenadine, Fexofenadine hcl, Hydrocodone-acetaminophen, Wound dressing adhesive, Azithromycin, Clarithromycin, and Sulfa antibiotics General: No fever or chills HEENT: No nasal congestion or runny nose Pulmonary: No shortness of breath or cough Cardiovascular: No chest pain or palpitations GI: No nausea or vomiting : No dysuria or hematuria Musculoskeletal: No new aches or pains or muscle weakness Infectious: no recurrent fevers or infections Dermatologic: No rashes or skin lesions Neurologic: No new headaches or dizziness Vitals: 02/17/24 1623 BP: 110/62 Pulse: 57 SpO2: 100% Body mass index is 21.58 kg/m . weight: 118 lb Neurologic exam: Mental status: Awake, alert to person, place and time. Recent and remote memory are intact. Attention and concentration are normal. Fund of knowledge is appropriate for level of education. HEENT: NC/AT Cranial nerves: CN II: Visual acuity is normal. Visual wilks full to confrontation. CN III, IV, : pupils equal round and reactive to light. Extraocular movements intact. No ptosis present. CN V: Facial sensation is normal. CN VII: Full and symmetric facial movement. CN VIII: Hearing is normal CN IX and X: Palate elevates symmetrically. CN XI: Shoulder shrug is normal bilaterally. CN XII: Tongue is midline without atrophy or fasciculation. Speech: Clear and fluent no aphasia or dysarthria Pronator drift: Negative bilateral upper extremity Coordination: Intact, no signs of dysmetria Good finger to nose and rapid alternating movements Sensory: Sensation is intact to light, temperature and vibratory touch throughout four extremities. Motor: LUE 5/5 RUE 5/5 LLE 5/5 RLE 5/5 Tone: Physiologic, no tremor, bradykinesia or rigidity DTR: Jim Biceps, BR 2/4 Jim Patellar 2/4 Gait: Normal to casual gait Romberg's Negative Review and summary of old records: Assessment/Plan Diagnoses and all orders for this visit: Nausea Migraine without aura and without status migrainosus, not intractable (CMS/HCC) - Rimegepant Sulfate (Nurtec) 75 MG tablet dispersible; 1 po daily prn migraine max 2 days per week - tiZANidine (Zanaflex) 4 MG tablet; Take 1 tablet (4 mg) by mouth at bedtime 1/2-1 po q hs 38-year-old female with headaches made up of primarily migraines without aura unlikely some tensiontype headaches. She respond well to the Zanaflex to her migraines. She is down to about 1-2 per week she is now off of the medication as she ran out and would prefer to just try the Nurtec as needed to abort the migraine and try to avoid a preventative. She knows if the headaches increase she needsto get back on the Zanaflex and we will give her refills. She does not have any neurologic deficitson exam so we will hold on imaging. We can consider it if things worsen. She can get some nausea with the migraines. She has been appropriately treated thus far with a trial of amitriptyline and Qulipta preventatively as they are occurring a couple of days out of the week. She had no response from the amitriptylineand had eye swelling from the Qulipta. She has been tried on 3 separate triptans which were not helpful. Plan Continue the Nurtec as needed abortive Can consider adding Zanaflex pending her course if she starts to get 2 or more migraines per week she should likely be added in She could certainly added in periodically if she finds that they are certain periods that are worsethan others Avoid any triggers Get appropriate amount of sleep 40 minutes or more of cardiovascular exercise at least 3 days a week. The diagnosis was all discussed with the patient. All questions were answered and they agreed with the treatment plan. Patient will call if there are any new issues or questions. Pt has been fully educated on their diagnosis, treatment options, follow up plan, and return instructions Return to clinic: 2-3 month documented [facility] encounterC[facility] [id number] Evaluation + Plan note Diagnostic Tests Pending * Urine Culture 02/16/24 [facility] Evaluation + Plan note No data available for this section [facility] Future Appointments Appointment Date:09/17/2021 08:00:00 AM Scheduled Provider: Location[facility] Appointment Type:US Thyroid/Neck/Chest (FT) Diagnostic Tests Pending * T3 Free 09/07/21 Future Scheduled Tests Radiology* US Thyroid 09/17/21 [facility] Future Appointments Appointment Date:09/17/2021 08:00:00 AM Scheduled Provider: Location[facility] Appointment Type:US Thyroid/Neck/Chest () Future Scheduled Tests Radiology* US Thyroid 09/17/21 [facility] Future Appointments Appointment Date:11/04/2022 08:00:00 AM Scheduled Provider:Uri Gibbs MD Location:[facility] Appointment Type: New Patient - Adult Diagnostic Tests Pending * T3 Free 09/02/22 [facility] Future Appointments Appointment Date:05/05/2023 07:20:00 AM Scheduled Provider:Uri Gibbs MD Location:[facility] Appointment Type: Open [facility] Future Appointments Appointment Date:11/03/2023 08:15:00 AM Scheduled Provider:Uri Gibbs MD Location:[facility] Appointment Type: Open Diagnostic Tests Pending * T3 Free 08/14/23 [facility] Future Appointments Appointment Date:12/02/2024 08:20:00 AM Scheduled Provider:Uri Gibbs MD Location:[facility] Appointment Type: Preventative Visit Future Scheduled Tests Laboratory* Urinalysis with Micro 02/24/24 * Urine Culture 02/24/24 Radiology* MA Mamm Diag w/CAD if perf and 3D RT 07/26/24 [facility] Evaluation + Plan note Future Appointments Appointment Date:12/02/2024 08:20:00 AM Scheduled Provider:Uri Gibbs MD Location:[facility] Appointment Type: Preventative Visit Diagnostic Tests Pending * T3 Free 08/25/24 Future Scheduled Tests Laboratory* Urinalysis with Micro 02/24/24 * Urine Culture 02/24/24 Radiology* MA Mamm Diag w/CAD if perf and 3D RT 07/26/24 [facility] evaluation + Plan note Future Appointments Appointment Date:10/04/2024 03:30:00 PM Scheduled Provider: Location:[facility] Appointment Type:Urology CALL PAT Appointment Date:10/05/2024 09:15:00 AM Scheduled Provider: Location:[facility] Appointment Type:Urology FT Appointment Date:12/02/2024 08:20:00 AM Scheduled Provider:Uri Gibbs MD Location:[facility] Appointment Type: Preventative Visit Diagnostic Tests Pending * UroVysion Fish and Urine Cyto ([facility]) 09/27/24 Future Scheduled Tests Laboratory* Urinalysis with Micro 02/24/24 * Urine Culture 02/24/24 Radiology* MA Mamm Diag w/CAD if perf and 3D RT 07/26/24 [facility] Evaluation + Plan note Future Appointments Appointment Date:10/04/2024 03:30:00 PM Scheduled Provider: Location:[facility] Appointment Type:Urology CALL PAT FT Appointment Date:10/05/2024 09:15:00 AM Scheduled Provider: Location:[facility] Appointment Type:Urology FT Appointment Date:12/02/2024 08:20:00 AM Scheduled Provider:Uri Gibbs MD Location:[facility] Appointment Type: Preventative Visit Future Scheduled Tests Laboratory* Urinalysis with Micro 02/24/24 * Urine Culture 02/24/24 Radiology* MA Mamm Diag w/CAD if perf and 3D RT 07/26/24 [facility] evaluation note* Diagnosis Nausea- Primary Nausea alone Migraine without aura and without status migrainosus, not intractable (CMS/HCC) documented in this encounter [facility]* Diagnosis Nausea- Primary Nausea alone Migraine without aura and without status migrainosus, not intractable (CMS/HCC) documented in [facility] encounter [facility]* Diagnosis Essie's disease- Primary Chronic lymphocytic thyroiditis Thyroid nodule Nontoxic uninodular goiter documented in this encounter [facility] note* Diagnosis Pelvic pain in female Unspecified symptom associated with female genital organs documented in this encounter [facility]* Diagnosis Pre-op examination Menorrhagia with regular cycle Abnormal uterine bleeding (AUB) Pelvic pain documented in this encounter [facility] Discharge instructions No data available for this section [facility] No data available for this section [facility] Summary Purpose Family History No Family History Records FoundNo Family History Records FoundNo Family History Records Found No data available for this section No Family History Records FoundNo Family History Records FoundNo Family History Records Found No data available for this section No Family History Records FoundNo Family History Records FoundNo Family History Records FoundNo Family History Records FoundNo Family History Records FoundNo Family History Records Found No data available for this section No Family History Records FoundNo Family History Records FoundNo Family History Records Found No data available for this section No data available for this section No data available for this section No Family History Records FoundNo Family History Records FoundNo Family History Records FoundNo Family History Records FoundNo Family History Records Found No data available for this section No data available for this section No Family History Records FoundNo Family History Records FoundNo Family History Records FoundNo Family History Records FoundNo Family History Records FoundNo Family History Records FoundNo Family History Records FoundNo Family History Records FoundNo Family History Records Found No data available for this section No data available for this section No data available for this section No data available for this section No data available for this section No Family History Records FoundNo Family History Records FoundNo Family History Records FoundNo Family History Records FoundNo Family History Records FoundNo Family History Records FoundNo Family History Records FoundNo Family History Records FoundNo Family History Records FoundNo Family History Records FoundNo Family History Records FoundNo Family History Records FoundNo Family History Records FoundNo Family History Records FoundNo Family History Records Found Advance Directives No Advanced Directives Records FoundNo Advanced Directives Records FoundNo Advanced Directives Records FoundNo Advanced Directives Records FoundNo Advanced Directives Records FoundNo Advanced Directives Records FoundNo Advanced Directives Records FoundNo Advanced Directives Records FoundNo Advanced Directives Records FoundNo Advanced Directives Records FoundNo Advanced Directives Records FoundNo Advanced Directives Records FoundNo Advanced Directives Records FoundNo Advanced Directives Records FoundNo Advanced Directives Records FoundNo Advanced Directives Records FoundNo Advanced Directives Records FoundNo Advanced Directives Records FoundNo Advanced Directives Records FoundNo Advanced Directives Records FoundNo Advanced Directives Records FoundNo Advanced Directives Records FoundNo Advanced Directives Records FoundNo Advanced Directives Records FoundNo Advanced Directives Records FoundNo Advanced Directives Records FoundNo Advanced Directives Records FoundNo Advanced Directives Records FoundNo Advanced Directives Records FoundNo Advanced Directives Records FoundNo Advanced Directiv es Records FoundNo Advanced Directives Records FoundNo Advanced Directives Records FoundNo AdvancedDirectives Records FoundNo Advanced Directives Records FoundNo Advanced Directives Records FoundNo Advanced Directives Records FoundNo Advanced Directives Records FoundNo Advanced Directives Records FoundNo Advanced Directives Records FoundNo Advanced Directives Records FoundNo Advanced Directives Records FoundNo Advanced Directives Records FoundNo Advanced Directives Records Found Additional Source Comments INFORMATION SOURCE (unrecogn ized section and content) DATE CREATED AUTHOR 06/06/2018 [facility] DATE CREATED AUTHOR AUTHOR'S ORGANIZ ATION 10/19/2019 [facility] DATE CREATED AUTHOR AUTHOR'S ORGANIZ ATION 05/23/2022 [facility] DATE CREATED AUTHOR AUTHOR'S ORGANIZ ATION 08/17/2023 [facility] DATE CREATED AUTHOR AUTHOR'S ORGANIZ ATION 11/21/2023 [facility] DATE CREATED AUTHOR AUTHOR'S ORGANIZ ATION 11/22/2023 [facility] DATE CREATED AUTHOR AUTHOR'S ORGANIZ ATION 02/18/2024 [facility] DATE CREATED AUTHOR AUTHOR'S ORGANIZ ATION 02/20/2024 [facility] DATE CREATED AUTHOR AUTHOR'S ORGANIZ ATION 02/24/2024 [facility] DATE CREATED AUTHOR AUTHOR'S ORGANIZ ATION 02/25/2024 [facility] DATE CREATED AUTHOR AUTHOR'S ORGANIZ ATION 02/28/2024 [facility] DATE CREATED AUTHOR AUTHOR'S ORGANIZ ATION 02/29/2024 [facility] DATE CREATED AUTHOR AUTHOR'S ORGANIZ ATION 08/28/2024 [facility] DATE CREATED AUTHOR AUTHOR'S ORGANIZ ATION 09/01/2024 [facility] DATE CREATED AUTHOR AUTHOR'S ORGANIZ ATION 09/02/2024 [facility] DATE CREATED AUTHOR AUTHOR'S ORGANIZ ATION 09/07/2024 [facility] DATE CREATED AUTHOR AUTHOR'S ORGANIZ ATION 10/21/2024 [facility] DATE CREATED AUTHOR AUTHOR'S ORGANIZ ATION 10/22/2024 [facility] DATE CREATED AUTHOR AUTHOR'S ORGANIZ ATION 10/24/2024 [facility] DATE CREATED AUTHOR AUTHOR'S ORGANIZ ATION 10/28/2024 [facility] DATE CREATED AUTHOR AUTHOR'S ORGANIZ ATION 10/30/2024 [facility] DATE CREATED AUTHOR AUTHOR'S ORGANIZ ATION 11/13/2024 [facility] DATE CREATED AUTHOR AUTHOR'S ORGANIZ ATION 11/17/2024 [facility] Care Team (unrecognized sect ion and content) Material Clerk Relationship Specialty Start Date End Date Uri Gibbs MD [address] [place] [address] PCP - General Family Medicine 04/17/23 Material Clerk Relationship Specialty Start Date End Date Uri Gibbs MD [address] [place] [address] PCP - General Family Medicine 04/17/23 Material Clerk Relationship Specialty Start Date End Date Uri Gibbs MD [address] [place] [address] PCP - General Family Medicine 04/17/23 Material Clerk Relationship Specialty Start Date End Date Uri Gibbs MD [address] [facility] [place] [address] PCP - General Family Medicine 04/17/23 Material Clerk Relationship Specialty Start Date End Date Uri Gibbs MD [address] [place] [address] PCP - General Family Medicine 04/17/23 Material Clerk Relationship Specialty Start Date End Date Uri Gibbs MD [address] [place] [address] PCP - General Family Medicine 04/17/23 Material Clerk Relationship Specialty Start Date End Date Uri Gibbs MD [address] [place] [address] PCP - [facility] 04/17/23 Material Clerk Relationship Specialty Start Date End Date Uri Gibbs MD [address] [place] [address] PCP - [facility] 04/17/23 Material Clerk Relationship Specialty Start Date End Date Uri Gibbs MD [address] [place] [address] PCP - General Family [facility] 04/17/23 Reason for Visit (unrecogniz ed section and content) Reason Comments Migraine Reason Comments Migraine Reason Comments Pelvic Pain Reason Comments Pre-op Visit [facility] FOR RECORDS PERTAINING TO PATIENTS WHO ARE OR HAVE BEEN ENROLLED IN A CHEMICAL DEPENDENCY/SUBSTANCEABUSE PROGRAM, SOME INFORMATION MAY BE OMITTED. This clinical summary was aggregated from multiple sources. Caution should be exercised in using it in the provision of clinical care. This summary normalizes information from multiple sources, and as a consequence, information in this document may materially change the coding, format and clinical context of patient data. In addition, data may be omitted in some cases. CLINICAL DECISIONS SHOULD BE BASED ON THE PRIMARY CLINICAL RECORDS. [email or web address] provides no warranty or guarantee of the accuracy or completeness of information in this document.
== END 2024-11-11 13:56 | disposition home or self-care (01) ==
LOC: LAB 13:55
PROVIDERS: Visit Provider Obstetrics & Gynecology
DX: Z01.818 Encounter for other preprocedural examination (principal); N92.0 Excessive and frequent menstruation with regular cycle; N93.9 Abnormal uterine and vaginal bleeding, unspecified; R10.2 Pelvic and perineal pain
CPT/HCPCS: 88305